=== PATIENT | female | born 1965 | race American Indian/Alaskan Native ===

== ENCOUNTER 2017-08-23 10:18 | Inpatient (IN) | payer MEDICARE ==
[2017-08-23] MEDS ORDERED: NITRO-BID 2% TP ONE (11:32)
[2017-08-23] MEDS ORDERED: LASIX IV ONE (11:32)
[2017-08-23] MEDS ORDERED: VALIUM IV ONE (11:33)
--- NOTE | 2017-08-23 11:35 | Emergency Department Report ---
ED Shortness of Breath HPI - General Chief Complaint: Dyspnea/Respdistress Stated Complaint: SOB Time Seen by Provider: 08/23/17 11:26 Source: EMS, old records reviewed Mode of arrival: Stretcher Limitations: Physical Limitation - History of Present Illness Initial Comments: 52-year-old female with a past medical history bilateral AKA, end-stage renal disease on dialysis, hypertension, and other medical conditions presents to the hospital complains of needing dialysis. Patient is due for dialysis today to be compliant with a Friday, , and Friday dialysis. Patient called the clinic and they are closed due to inclement weather and therefore patient came here. Room saturation 88% and improved to 100% on liters nasal cannula. Patient denies pain but complains of feeling anxious. Tank Car Inspector: Dr. Agustin Previous medical records were reviewed and patient admitted here 07/28-08/04 and for hypoxemia secondary to volume overload and pneumonia. - Related Data Home Medications Medication Instructions Recorded Confirmed Last Taken ISOSORBIDE MONOnitrate [Imdur ER] 30 mg PO DAILY 07/28/17 07/28/17 Unknown Losartan [Cozaar] 50 mg PO QDAY 07/28/17 07/28/17 Unknown Previous Rx's Medication Instructions Recorded Last Taken Type ALBUTEROL NEB's [Proventil 0.083% 2.5 mg IH Q3HRT PRN #1 nebu 08/04/17 Unknown Rx NEBS] Aspirin [Aspirin BABY CHEW TAB] 81 mg PO QDAY #30 tab.chew 08/04/17 Unknown Rx AtorvaSTATin [Lipitor] 40 mg PO QHS #30 tablet 08/04/17 Unknown Rx ISOSORBIDE MONOnitrate [Imdur ER] 60 mg PO QDAY #30 tablet 08/04/17 Unknown Rx Levofloxacin [Levaquin TAB] 500 mg PO Q48H #7 tablet 08/04/17 Unknown Rx Losartan [Cozaar] 100 mg PO QDAY #30 tablet 08/04/17 Unknown Rx Magnesium Hydroxide [Milk of 30 ml PO Q4H PRN oral.liqd 08/04/17 Unknown Rx Magnesia] Metoprolol Tartrate 25 mg PO BID #60 tablet 08/04/17 Unknown Rx Pantoprazole [Protonix TAB] 20 mg PO QDAY #30 tablet. 08/04/17 Unknown Rx Pregabalin [Lyrica] 75 mg PO QDAY #30 capsule 08/04/17 Unknown Rx Sevelamer Carbonate [Renvela] 800 mg PO TIDWM #30 tablet 08/04/17 Unknown Rx Sucralfate 1 gm PO BID #60 tablet 08/04/17 Unknown Rx amLODIPine [Norvasc] 10 mg PO QDAY #30 tablet 08/04/17 Unknown Rx oxyCODONE /ACETAMINOPHEN [Percocet 1 tab PO Q6H PRN #60 tablet 08/04/17 Unknown Rx 5/325 mg] Allergies Allergy/AdvReac Type Severity Reaction Status Date / Time azithromycin [From Zithromax] Allergy Rash Verified 07/28/17 07:11 sulfamethoxazole Allergy Unknown Verified 07/28/17 04:12 [From Bactrim] trimethoprim [From Bactrim] Allergy Unknown Verified 07/28/17 04:12 ED Review of Systems ROS: Stated complaint: SOB Other details as noted in HPI Comment: All other systems reviewed and negative Other: Constitutional: No fevers chills Eyes: No eye pain visual changes ENT: No ear pain or throat pain Neck: Denies pain Respiratory: As per HPI Cardiovascular: Denies chest pain GI: Denies abdominal pain, nausea, vomiting, diarrhea : Denies dysuria Musculoskeletal: Denies back pain Skin: Denies rash, lesions, erythema Neurologic: Denies headache, numbness, weakness ED Past Medical Hx - Past Medical History Hx Hypertension: Yes Hx Heart Attack/AMI: Yes (2009, 2013) Hx Congestive Heart Failure: Yes Hx Diabetes: Yes Hx Deep Vein Thrombosis: No Hx Pulmonary Embolism: No Hx Renal Disease: Yes (, , Fri) Hx Asthma: No Hx COPD: No Hx Tuberculosis: No Hx HIV: No - Surgical History Hx Coronary Stent: No Hx Pacemaker: No Hx Internal Defibrillator: No Additional Surgical History: Tubal ligation. R. Chest permacath. Bilateral below the knee amputee 1999 - Social History Smoking Status: Never Smoker - Medications Home Medications: Home Medications Medication Instructions Recorded Confirmed Last Taken Type ISOSORBIDE MONOnitrate [Imdur ER] 30 mg PO DAILY 07/28/17 07/28/17 Unknown History Losartan [Cozaar] 50 mg PO QDAY 07/28/17 07/28/17 Unknown History ALBUTEROL NEB's [Proventil 0.083% 2.5 mg IH Q3HRT PRN #1 nebu 08/04/17 Unknown Rx NEBS] Aspirin [Aspirin BABY CHEW TAB] 81 mg PO QDAY #30 tab.chew 08/04/17 Unknown Rx AtorvaSTATin [Lipitor] 40 mg PO QHS #30 tablet 08/04/17 Unknown Rx ISOSORBIDE MONOnitrate [Imdur ER] 60 mg PO QDAY #30 tablet 08/04/17 Unknown Rx Levofloxacin [Levaquin TAB] 500 mg PO Q48H #7 tablet 08/04/17 Unknown Rx Losartan [Cozaar] 100 mg PO QDAY #30 tablet 08/04/17 Unknown Rx Magnesium Hydroxide [Milk of 30 ml PO Q4H PRN oral.liqd 08/04/17 Unknown Rx Magnesia] Metoprolol Tartrate 25 mg PO BID #60 tablet 08/04/17 Unknown Rx Pantoprazole [Protonix TAB] 20 mg PO QDAY #30 tablet.dr 08/04/17 Unknown Rx Pregabalin [Lyrica] 75 mg PO QDAY #30 capsule 08/04/17 Unknown Rx Sevelamer Carbonate [Renvela] 800 mg PO TIDWM #30 tablet 08/04/17 Unknown Rx Sucralfate 1 gm PO BID #60 tablet 08/04/17 Unknown Rx amLODIPine [Norvasc] 10 mg PO QDAY #30 tablet 08/04/17 Unknown Rx oxyCODONE /ACETAMINOPHEN [Percocet 1 tab PO Q6H PRN #60 tablet 08/04/17 Unknown Rx 5/325 mg] ED Physical Exam - General Limitations: Physical Limitation - Other Other exam information: General: No limitations, patient is alert in no acute distress Head exam: Atraumatic, normocephalic Eyes exam: Normal appearance ENT: Moist mucous membrane, normal oropharynx Neck exam: Normal inspection Respiratory exam: Bilateral rales, tachypnea, accessory muscle use Cardiovascular: Normal rate and rhythm, normal heart sounds Abdomen: Soft, nondistended, and nontender, with normal bowel sounds, no rebound, or guarding Extremity: Bilateral AKA Back: Normal Inspection, full range of motion, no tenderness Neurologic: Alert, oriented x3, cranial nerves intact, no motor or sensory deficit Psychiatric: normal affect, normal mood Skin: Warm, dry, intact ED Course Vital Signs 08/23/17 10:55 Temperature 98.6 F Pulse Rate 106 H Respiratory 14 Rate Blood Pressure 194/101 Blood Pressure 194/101 [Right] O2 Sat by Pulse 100 Oximetry - Reevaluation(s) Reevaluation #1: 08/23/17 12:07 nitro paste, lasix, valium ordered - Consultations Consultation #1: 08/23/17 11:39 Dr Ramirez development lead paged 08/23/17 11:[address] to hospital, will arrange dialysis ED Medical Decision Making - Lab Data Result diagrams: 08/23/17 11:22 08/23/17 11:22 Lab Results 08/23/17 08/23/17 Range/Units 11:22 11:22 WBC 10.5 (4.5-11.0) K/mm3 RBC 3.04 L (3.65-5.03) M/mm3 Hgb 9.0 L (10.1-14.3) gm/dl Hct 28.4 L (30.3-42.9) % MCV 93 (79-97) fl MCH 30 (28-32) pg MCHC 32 (30-34) % RDW 20.9 H (13.2-15.2) % Plt Count 179 (140-440) K/mm3 Lymph % (Auto) 16.6 (13.4-35.0) % [place] % (Auto) 7.1 (0.0-7.3) % Eos % (Auto) 6.2 H (0.0-4.3) % Baso % (Auto) 0.5 (0.0-1.8) % Lymph # 1.7 (1.2-5.4) K/mm3 [place] # 0.8 (0.0-0.8) K/mm3 Eos # 0.7 H (0.0-0.4) K/mm3 Baso # 0.1 (0.0-0.1) K/mm3 Add Manual Diff Complete Seg Neutrophils % 69.6 (40.0-70.0) % Seg Neutrophils # 7.3 (1.8-7.7) K/mm3 Sodium 140 (137-145) mmol/L Potassium 4.3 (3.6-5.0) mmol/L Chloride 99.7 (98-107) mmol/L Carbon Dioxide 21 L (22-30) mmol/L Anion Gap 24 mmol/L BUN 66 H (7-17) mg/dL Creatinine 8.1 H (0.7-1.2) mg/dL Estimated GFR 6 ml/min BUN/Creatinine Ratio 8 % Glucose 114 H (65-100) mg/dL Calcium 8.6 (8.4-10.2) mg/dL Total Bilirubin 0.40 (0.1-1.2) mg/dL AST 28 (5-40) units/L ALT 22 (7-56) units/L Alkaline Phosphatase 364 H (35-129) units/L Total Protein 8.5 H (6.3-8.2) g/dL Albumin 3.3 L (3.9-5) g/dL Albumin/Globulin Ratio 0.6 % - EKG Data -: EKG Interpreted by Me EKG shows normal: sinus rhythm, axis (59), QRS complexes (88), ST-T waves (lat t wave inv) Rate: tachycardia (106) - EKG Data When compared to previous EKG there are: no significant change (compared to ) - Radiology Data Radiology results: image reviewed (read by Me: pulm edema) - Medical Decision Making Plan to admit patient to the hospital for stat dialysis given pulmonary edema and volume over. Nephrology consultation arranged at dialysis. - Differential Diagnosis pneumonia, CHF, volume overload, hyperkalemia Critical Care Time: No Critical care attestation.: If time is entered above; I have spent that time in minutes in the direct care of this critically ill patient, excluding procedure time. ED Disposition Clinical Impression: ESRD needing dialysis, Pulmonary edema, Hypertension, Anemia Disposition: OP ADMIT IP TO THIS HOSP Is pt being admited?: Yes Condition: Stable Time of Disposition: 12:06 (Dr Montes/hosp)
[2017-08-23 11:52] LABS: Red Blood Count 3.04 M/mm3 (3.65-5.03); White Blood Count 10.5 K/mm3 (4.5-11.0)
[2017-08-23 11:53] LABS: Basophils % (Auto) 0.5 % (0.0-1.8); Eosinophils % (Auto) 6.2 % (0.0-4.3); Hematocrit 28.4 % (30.3-42.9); Mean Corpuscular HGB Conc 32 % (30-34); Mean Corpuscular Hemoglobin 30 pg (28-32); Mean Corpuscular Volume 93 fl (79-97); Platelet Count 179 K/mm3 (140-440); Red Cell Distribution Width 20.9 % (13.2-15.2)
[2017-08-23 11:54] LABS: Diff Status Complete
[2017-08-23 11:58] LABS: Albumin 3.3 g/dL (3.9-5); Albumin/Globulin Ratio 0.6 %; Bilirubin,Total 0.4 mg/dL (0.1-1.2); Calcium 8.6 mg/dL (8.4-10.2); Chloride 99.7 mmol/L (98-107); Potassium 4.3 mmol/L (3.6-5.0); Total Protein 8.5 g/dL (6.3-8.2)
--- NOTE | 2017-08-23 12:00 | Consultation ---
History of Present Illness - Reason for Consult Consult date: 08/23/17 end stage renal disease, other (volume overload) - History of Present Illness The patient is a 52 year old AAF with medical history significant for Hypertension, Type 2 DM, Bilateral BKA, CHF, CAD s/p stent, Anemia and ESRD on hemodialysis(TTS) presented to the hospital with shortness of breath that started abruptly this morning. Patient couldn't get hemodialysis today since the hemodialysis unit was closed today. She was last dialyzed 2 days ago but didn't remove any fluid due to low BP. Her intial BP was 194/101. Her primary Rn Renal is . CXR suggestive of Pulmonary edema. Her hemodialysis access is left arm AVG. Past History Past Medical History: anemia, diabetes, dialysis, ESRD, heart failure, hypertension, hyperlipidemia Medications and Allergies Allergies Allergy/AdvReac Type Severity Reaction Status Date / Time azithromycin [From Zithromax] Allergy Rash Verified 07/28/17 07:11 sulfamethoxazole Allergy Unknown Verified 07/28/17 04:12 [From Bactrim] trimethoprim [From Bactrim] Allergy Unknown Verified 07/28/17 04:12 Home Medications Medication Instructions Recorded Confirmed Last Taken Type ISOSORBIDE MONOnitrate [Imdur ER] 30 mg PO DAILY 07/28/17 07/28/17 Unknown History Losartan [Cozaar] 50 mg PO QDAY 07/28/17 07/28/17 Unknown History ALBUTEROL NEB's [Proventil 0.083% 2.5 mg IH Q3HRT PRN #1 nebu 08/04/17 Unknown Rx NEBS] Aspirin [Aspirin BABY CHEW TAB] 81 mg PO QDAY #30 tab.chew 08/04/17 Unknown Rx AtorvaSTATin [Lipitor] 40 mg PO QHS #30 tablet 08/04/17 Unknown Rx ISOSORBIDE MONOnitrate [Imdur ER] 60 mg PO QDAY #30 tablet 08/04/17 Unknown Rx Levofloxacin [Levaquin TAB] 500 mg PO Q48H #7 tablet 08/04/17 Unknown Rx Losartan [Cozaar] 100 mg PO QDAY #30 tablet 08/04/17 Unknown Rx Magnesium Hydroxide [Milk of 30 ml PO Q4H PRN oral.liqd 08/04/17 Unknown Rx Magnesia] Metoprolol Tartrate 25 mg PO BID #60 tablet 08/04/17 Unknown Rx Pantoprazole [Protonix TAB] 20 mg PO QDAY #30 tablet. 08/04/17 Unknown Rx Pregabalin [Lyrica] 75 mg PO QDAY #30 capsule 08/04/17 Unknown Rx Sevelamer Carbonate [Renvela] 800 mg PO TIDWM #30 tablet 08/04/17 Unknown Rx Sucralfate 1 gm PO BID #60 tablet 08/04/17 Unknown Rx amLODIPine [Norvasc] 10 mg PO QDAY #30 tablet 08/04/17 Unknown Rx oxyCODONE /ACETAMINOPHEN [Percocet 1 tab PO Q6H PRN #60 tablet 08/04/17 Unknown Rx 5/325 mg] Review of Systems Constitutional: no weight loss, no weight gain, no fever, no chills, no anorexia Ears, nose, mouth and throat: no epistaxis Breasts: deferred Cardiovascular: orthopnea, shortness of breath, dyspnea on exertion, high blood pressure, no chest pain, no edema, no syncope, no lightheadedness, no leg edema Respiratory: cough, shortness of breath, dyspnea on exertion, no cough with sputum, no hemoptysis Gastrointestinal: no abdominal pain, no nausea, no vomiting, no diarrhea, no hematemesis, no melena Genitourinary Female: no hematuria Rectal: no bleeding Musculoskeletal: no redness of joints, no hot joints Integumentary: no rash, no jaundice Neurological: no paralysis, no syncope, no vertigo, no aphasia, no change in speech, no change in mentation, no confusion, no memory loss Psychiatric: no memory loss Endocrine: no weight change Hematologic/Lymphatic: no easy bleeding Exam - Vital Signs Vital signs: Vital Signs Temp Pulse Resp BP Pulse Ox 98.6 F 106 H 14 194/101 100 08/23/17 10:55 08/23/17 10:55 08/23/17 10:55 08/23/17 10:55 08/23/17 10:55 - General Appearance General appearance: well-developed, appears stated age, other (no obvious distress) EENT: ATNC, PERRL, hearing intact Neck: Present: neck supple, trachea midline Respiratory: Rales Heart: regular, S1S2, no murmurs Gastrointestinal: Present: normoactive bowel sounds. Absent: tenderness, distended Integumentary: no rash Neurologic: no focal deficit, no asterixis, alert and oriented x3 Musculoskeletal: Present: other (no edema, bilateral BKA) Psychiatric: mood/affect appropriate, cooperative Results - Lab Results 08/23/17 11:22 08/23/17 11:22 Most recent lab results Calcium 8.6 mg/dL (8.4-10.2) 08/23/17 11:22 Assessment and Plan 1. Volume overload: Hemodialysis today. 2. ESRD: Continue HD three times a week. 3. Anemia: Epogen as needed. 4. Uncontrolled HTN: UF with hemodialysis today. Monitor BP. 5. H/o CAD.
[2017-08-23] MEDS ORDERED: NACL 0.9% 100 ML IV PRN (12:10)
--- NOTE | 2017-08-23 13:24 | XRay Report ---
AP CHEST :08/23/17 CLINICAL: Difficulty breathing. COMPARISON:07/28/17 FINDINGS: Cardiomegaly and central vascular congestion with indistinct as are the pulmonary vessels. Increased bilateral multilobar reticular interstitial opacities compared to the prior exam. Increased bibasal both confluent and patchy lung opacities. A right Vas-Cath has been removed. No tubes or lines. IMPRESSION: CHF with multilobar interstitial pulmonary edema and bibasal dependent alveolar pulmonary edema.
[2017-08-23] MEDS ORDERED: APRESOLINE IV ONE (17:42)
[2017-08-23] MEDS: MORPHINE IV PRN (18:41)
--- NOTE | 2017-08-23 19:23 | History and Physical Report ---
History of Present Illness Date of examination: 08/23/17 Date of admission: 08/23/17 14:51 Chief complaint: CC Increasing SOB for 3 days History of present illness: History of Present Illness: 52-year-old female with a past medical history bilateral AKA, end-stage renal disease on dialysis, hypertension, and other medical conditions presents to the hospital complains of needing dialysis. Patient is due for dialysis today to be compliant with a Friday, , and Friday dialysis. Patient called the clinic and they are closed due to inclement weather and therefore patient came here. Room saturation 88% and improved to 100% on liters nasal cannula. Patient denies pain but complains of feeling anxious. Shipyard Helper: Dr. Agustin Previous medical records were reviewed and patient admitted here 07/28-08/04 and for hypoxemia secondary to volume overload and pneumonia. Past Medical History Hx Hypertension: Yes Hx Heart Attack/AMI: Yes (2009, 2013) Hx Congestive Heart Failure: Yes Hx Diabetes: Yes Hx Renal Disease: Yes (, , Fri) PAD - Surgical History Hx Coronary Stent: No Hx Pacemaker: No Hx Internal Defibrillator: No Additional Surgical History: Tubal ligation. R. Chest permacath. Bilateral below the knee amputee 1999 - Social History Smoking Status: Never Smoker Fam Hx Htn - Medications Home Medications: Home Medications Medication Instructions Recorded Confirmed Last Taken Type ISOSORBIDE MONOnitrate [Imdur ER] 30 mg PO DAILY 07/28/17 07/28/17 Unknown History Losartan [Cozaar] 50 mg PO QDAY 07/28/17 07/28/17 Unknown History ALBUTEROL NEB's [Proventil 0.083% 2.5 mg IH Q3HRT PRN #1 nebu 08/04/17 Unknown Rx NEBS] Aspirin [Aspirin BABY CHEW TAB] 81 mg PO QDAY #30 tab.chew 08/04/17 Unknown Rx AtorvaSTATin [Lipitor] 40 mg PO QHS #30 tablet 08/04/17 Unknown Rx ISOSORBIDE MONOnitrate [Imdur ER] 60 mg PO QDAY #30 tablet 08/04/17 Unknown Rx Levofloxacin [Levaquin TAB] 500 mg PO Q48H #7 tablet 08/04/17 Unknown Rx Losartan [Cozaar] 100 mg PO QDAY #30 tablet 08/04/17 Unknown Rx Magnesium Hydroxide [Milk of 30 ml PO Q4H PRN oral.liqd 08/04/17 Unknown Rx Magnesia] Metoprolol Tartrate 25 mg PO BID #60 tablet 08/04/17 Unknown Rx Pantoprazole [Protonix TAB] 20 mg PO QDAY #30 tablet. 08/04/17 Unknown Rx Pregabalin [Lyrica] 75 mg PO QDAY #30 capsule 08/04/17 Unknown Rx Sevelamer Carbonate [Renvela] 800 mg PO TIDWM #30 tablet 08/04/17 Unknown Rx Sucralfate 1 gm PO BID #60 tablet 08/04/17 Unknown Rx amLODIPine [Norvasc] 10 mg PO QDAY #30 tablet 08/04/17 Unknown Rx oxyCODONE /ACETAMINOPHEN [Percocet 1 tab PO Q6H PRN #60 tablet 08/04/17 Unknown Rx 5/325 mg] Review of Systems Stated complaint: SOB Other details as noted in HPI Comment: All other systems reviewed and negative Other: Constitutional: No fevers chills Eyes: No eye pain visual changes ENT: No ear pain or throat pain Neck: Denies pain Respiratory: As per HPI Cardiovascular: Denies chest pain GI: Denies abdominal pain, nausea, vomiting, diarrhea : Denies dysuria Musculoskeletal: Denies back pain Skin: Denies rash, lesions, erythema Neurologic: Denies headache, numbness, weakness Past History Past Medical History: anemia, diabetes, dialysis, ESRD, heart failure, hypertension, hyperlipidemia Medications and Allergies Allergies Allergy/AdvReac Type Severity Reaction Status Date / Time azithromycin [From Zithromax] Allergy Rash Verified 07/28/17 07:11 sulfamethoxazole Allergy Unknown Verified 07/28/17 04:12 [From Bactrim] trimethoprim [From Bactrim] Allergy Unknown Verified 07/28/17 04:12 Home Medications Medication Instructions Recorded Confirmed Last Taken Type ISOSORBIDE MONOnitrate [Imdur ER] 30 mg PO DAILY 07/28/17 07/28/17 Unknown History Losartan [Cozaar] 50 mg PO QDAY 07/28/17 07/28/17 Unknown History ALBUTEROL NEB's [Proventil 0.083% 2.5 mg IH Q3HRT PRN #1 nebu 08/04/17 Unknown Rx NEBS] Aspirin [Aspirin BABY CHEW TAB] 81 mg PO QDAY #30 tab.chew 08/04/17 Unknown Rx AtorvaSTATin [Lipitor] 40 mg PO QHS #30 tablet 08/04/17 Unknown Rx ISOSORBIDE MONOnitrate [Imdur ER] 60 mg PO QDAY #30 tablet 08/04/17 Unknown Rx Levofloxacin [Levaquin TAB] 500 mg PO Q48H #7 tablet 08/04/17 Unknown Rx Losartan [Cozaar] 100 mg PO QDAY #30 tablet 08/04/17 Unknown Rx Magnesium Hydroxide [Milk of 30 ml PO Q4H PRN oral.liqd 08/04/17 Unknown Rx Magnesia] Metoprolol Tartrate 25 mg PO BID #60 tablet 08/04/17 Unknown Rx Pantoprazole [Protonix TAB] 20 mg PO QDAY #30 tablet.dr 08/04/17 Unknown Rx Pregabalin [Lyrica] 75 mg PO QDAY #30 capsule 08/04/17 Unknown Rx Sevelamer Carbonate [Renvela] 800 mg PO TIDWM #30 tablet 08/04/17 Unknown Rx Sucralfate 1 gm PO BID #60 tablet 08/04/17 Unknown Rx amLODIPine [Norvasc] 10 mg PO QDAY #30 tablet 08/04/17 Unknown Rx oxyCODONE /ACETAMINOPHEN [Percocet 1 tab PO Q6H PRN #60 tablet 08/04/17 Unknown Rx 5/325 mg] Active Meds: Active Medications Sodium Chloride (Nacl 0.9%) 100 mls @ 999 mls/hr IV RAIN PRN PRN Reason: Hypotension Morphine Sulfate (Morphine) 2 mg IV Q3H PRN PRN Reason: Pain, Moderate (4-6) Last Admin: 08/23/17 18:41 Dose: 2 mg Exam - Constitutional Vitals: Temp Pulse Resp BP Pulse Ox 99.1 F 115 H 18 190/92 100 08/23/17 18:29 08/23/17 18:13 08/23/17 18:29 08/23/17 18:13 08/23/17 18:29 General appearance: Present: no acute distress, well-nourished - EENT Eyes: Present: PERRL ENT: hearing intact, clear oral mucosa - Neck Neck: Present: supple, normal ROM - Respiratory Respiratory effort: normal Respiratory: bilateral: CTA - Cardiovascular Heart rate: 76 Rhythm: regular Heart Sounds: Present: S1 & S2. Absent: rub, click - Extremities Extremities: pulses symmetrical, No edema, abnormal (Bilateral AKA) Peripheral Pulses: within normal limits - Abdominal General gastrointestinal: Present: soft, non-tender, non-distended, normal bowel sounds Female genitourinary: Present: normal - Integumentary Integumentary: Present: clear, warm, dry - Musculoskeletal Musculoskeletal: gait normal, strength equal bilaterally - Psychiatric Psychiatric: appropriate mood/affect, intact judgment & insight - Neurologic Neurologic: CNII-XII intact, moves all extremities Results - Labs CBC & Chem 7: 08/23/17 11:22 08/23/17 11:22 Labs: Laboratory Last Values WBC 10.5 K/mm3 (4.5-11.0) 08/23/17 11:22 RBC 3.04 M/mm3 (3.65-5.03) L 08/23/17 11:22 Hgb 9.0 gm/dl (10.1-14.3) L 08/23/17 11:22 Hct 28.4 % (30.3-42.9) L 08/23/17 11:22 MCV 93 fl (79-97) 08/23/17 11:22 MCH 30 pg (28-32) 08/23/17 11:22 MCHC 32 % (30-34) 08/23/17 11:22 RDW 20.9 % (13.2-15.2) H 08/23/17 11:22 Plt Count 179 K/mm3 (140-440) 08/23/17 11:22 Lymph % (Auto) 16.6 % (13.4-35.0) 08/23/17 11:22 [place] % (Auto) 7.1 % (0.0-7.3) 08/23/17 11:22 Eos % (Auto) 6.2 % (0.0-4.3) H 08/23/17 11:22 Baso % (Auto) 0.5 % (0.0-1.8) 08/23/17 11:22 Lymph # 1.7 K/mm3 (1.2-5.4) 08/23/17 11:22 [place] # 0.8 K/mm3 (0.0-0.8) 08/23/17 11:22 Eos # 0.7 K/mm3 (0.0-0.4) H 08/23/17 11:22 Baso # 0.1 K/mm3 (0.0-0.1) 08/23/17 11:22 Add Manual Diff Complete 08/23/17 11:22 Seg Neutrophils % 69.6 % (40.0-70.0) 08/23/17 11:22 Seg Neutrophils # 7.3 K/mm3 (1.8-7.7) 08/23/17 11:22 Sodium 140 mmol/L (137-145) 08/23/17 11:22 Potassium 4.3 mmol/L (3.6-5.0) 08/23/17 11:22 Chloride 99.7 mmol/L (98-107) 08/23/17 11:22 Carbon Dioxide 21 mmol/L (22-30) L 08/23/17 11:22 Anion Gap 24 mmol/L 08/23/17 11:22 BUN 66 mg/dL (7-17) H 08/23/17 11:22 Creatinine 8.1 mg/dL (0.7-1.2) H 08/23/17 11:22 Estimated GFR 6 ml/min 08/23/17 11:22 BUN/Creatinine Ratio 8 % 08/23/17 11:22 Glucose 114 mg/dL (65-100) H 08/23/17 11:22 POC Glucose 136 (70-105) H 08/23/17 17:18 Calcium 8.6 mg/dL (8.4-10.2) 08/23/17 11:22 Total Bilirubin 0.40 mg/dL (0.1-1.2) 08/23/17 11:22 AST 28 units/L (5-40) 08/23/17 11:22 ALT 22 units/L (7-56) 08/23/17 11:22 Alkaline Phosphatase 364 units/L (35-129) H 08/23/17 11:22 Total Protein 8.5 g/dL (6.3-8.2) H 08/23/17 11:22 Albumin 3.3 g/dL (3.9-5) L 08/23/17 11:22 Albumin/Globulin Ratio 0.6 % 08/23/17 11:22 Short CBC 08/23/17 Range/Units 11:22 WBC 10.5 (4.5-11.0) K/mm3 Hgb 9.0 L (10.1-14.3) gm/dl Hct 28.4 L (30.3-42.9) % Plt Count 179 (140-440) K/mm3 BMP 08/23/17 11:22 Sodium 140 Potassium 4.3 Chloride 99.7 Carbon Dioxide 21 L BUN 66 H Creatinine 8.1 H Glucose 114 H Calcium 8.6 Liver Function 08/23/17 Range/Units 11:22 Total Bilirubin 0.40 (0.1-1.2) mg/dL AST 28 (5-40) units/L ALT 22 (7-56) units/L Alkaline Phosphatase 364 H (35-129) units/L Albumin 3.3 L (3.9-5) g/dL - Imaging and Cardiology EKG: report reviewed Chest x-ray: report reviewed (CHF with pulm edema) Assessment and Plan Advance Directives: Yes (Full code) VTE prophylaxis?: Chemical Plan of care discussed with patient/family: Yes - Patient Problems (1) Acute exacerbation of CHF (congestive heart failure) Current Visit: Yes Status: Acute Qualifiers: Congestive heart failure type: diastolic Qualified Code(s): I50.33 - Acute on chronic diastolic (congestive) heart failure Plan to address problem: Sec to volume overload. Needs emergent HD for Ultrafiltration and volume removal. (2) ESRD needing dialysis Current Visit: Yes Status: Chronic Plan to address problem: Nephrology consulted (3) Hypertension Current Visit: Yes Status: Chronic Qualifiers: Hypertension type: essential hypertension Qualified Code(s): I10 - Essential (primary) hypertension Plan to address problem: Hydralazine 10mg q3 prn and adjust antihypertensives (4) Hypertensive emergency Current Visit: No Status: Acute Plan to address problem: IV Hydralazine 10mg q 3 prn (5) Peripheral neuropathy Current Visit: Yes Status: Chronic Qualifiers: Peripheral neuropathy type: polyneuropathy, unspecified Qualified Code(s): G62.9 - Polyneuropathy, unspecified Plan to address problem: Cont Lyrica (6) GERD without esophagitis Current Visit: Yes Status: Chronic Plan to address problem: Cont pPI's (7) DVT prophylaxis Current Visit: Yes Status: Acute Plan to address problem: On Heparin
[2017-08-23] MEDS ORDERED: MILK OF MAGNESIA PO PRN (19:29)
[2017-08-23] MEDS ORDERED: PROVENTIL IH PRN (19:29)
[2017-08-23] MEDS ORDERED: NORVASC PO SCH (20:00)
[2017-08-23] MEDS ORDERED: IMDUR PO SCH (20:00)
[2017-08-23] MEDS: COZAAR PO SCH (20:12)
[2017-08-23] MEDS: BABY ASPIRIN PO SCH (20:13)
[2017-08-23] MEDS: IMDUR PO SCH (20:13)
[2017-08-23] MEDS: CARAFATE PO SCH (22:21)
[2017-08-23] MEDS: LOPRESSOR PO SCH (22:22)
[2017-08-23] MEDS: NORVASC PO SCH (22:24)
[2017-08-23] MEDS: HEPARIN SUB-Q SCH (22:25)
[2017-08-23] MEDS: DILAUDID IV PRN (22:32)
[2017-08-24] MEDS ORDERED: NOVOLOG SUB-Q ONE (00:46)
[2017-08-24] MEDS ORDERED: NOVOLOG SUB-Q SCH ×3 (07:30→11:30)
[2017-08-24] MEDS: DILAUDID IV PRN ×2 (08:33→20:23)
[2017-08-24] MEDS: NOVOLOG SUB-Q SCH ×4 (08:55→23:28)
[2017-08-24] MEDS: ZOFRAN IV PRN ×2 (09:16→20:22)
[2017-08-24] MEDS ORDERED: BENADRYL IV PRN (09:17)
[2017-08-24] MEDS: COZAAR PO SCH (11:20)
[2017-08-24] MEDS: RENVELA PO SCH ×3 (11:21→17:05)
[2017-08-24] MEDS: LYRICA PO SCH (11:21)
[2017-08-24] MEDS: NORVASC PO SCH (11:21)
[2017-08-24] MEDS: IMDUR PO SCH (11:22)
[2017-08-24] MEDS: BABY ASPIRIN PO SCH (11:22)
[2017-08-24] MEDS: HEPARIN SUB-Q SCH ×2 (11:22→22:21)
[2017-08-24] MEDS: CARAFATE PO SCH ×2 (11:22→22:23)
[2017-08-24] MEDS: LOPRESSOR PO SCH ×2 (11:26→22:23)
--- NOTE | 2017-08-24 12:30 | Progress Note ---
Assessment and Plan 1. Volume overload: Improved after hemodialysis yesterday. 2. ESRD: Continue HD three times a week. 3. Anemia: Epogen as needed. 4. Uncontrolled HTN: BP is better now. Monitor BP. 5. H/o CAD. Subjective Date of service: 08/24/17 Interval history: Patient is feeling better. Objective - Vital Signs Vital signs: Vital Signs - 12hr 08/24/17 08/24/17 08/24/17 02:43 08:17 08:30 Temperature 98.2 F Pulse Rate 91 H Respiratory 20 18 Rate Blood Pressure 135/67 O2 Sat by Pulse 90 95 96 Oximetry 08/24/17 08/24/17 08/24/17 11:20 11:21 11:22 Temperature Pulse Rate 91 H 91 H 91 H Respiratory Rate Blood Pressure 135/67 135/67 135/67 O2 Sat by Pulse Oximetry - General Appearance General appearance: well-developed, appears stated age, other (no distress) EENT: ATNC, PERRL, hearing intact Neck: supple Respiratory: Present: Rales (bibasal) Cardiology: regular, S1S2, no murmurs Gastrointestinal: normoactive bowel sounds, no tenderness, no distended Integumentary: no rash, warm and dry Neurologic: no focal deficit, no asterixis, alert and oriented x3 Musculoskeletal: other (no edema, left arm AVG, bilateral BKA) Psychiatric: mood/affect appropriate, cooperative - Lab 08/23/17 11:22 08/23/17 11:22 Most recent lab results Calcium 8.6 mg/dL (8.4-10.2) 08/23/17 11:22
--- NOTE | 2017-08-24 15:58 | Progress Note ---
Assessment and Plan - Patient Problems (1) Acute exacerbation of CHF (congestive heart failure) Current Visit: Yes Status: Acute Qualifiers: Congestive heart failure type: diastolic Qualified Code(s): I50.33 - Acute on chronic diastolic (congestive) heart failure Plan to address problem: Seciondary to volume overload. On HD. (2) ESRD needing dialysis on T, TH and Sat Current Visit: Yes Status: Chronic Plan to address problem: Nephrology consulted (3) Hypertension: controlled Current Visit: Yes Status: Chronic Qualifiers: Hypertension type: essential hypertension Qualified Code(s): I10 - Essential (primary) hypertension Plan to address problem: Hydralazine 10mg q3 prn and adjust antihypertensives (4) Hypertensive emergency: improved Current Visit: No Status: Acute Plan to address problem: IV Hydralazine 10mg q 3 prn (5)Diabetic Peripheral neuropathy Current Visit: Yes Status: Chronic Qualifiers: Peripheral neuropathy type: polyneuropathy, unspecified Qualified Code(s): G62.9 - Polyneuropathy, unspecified Plan to address problem: Cont Lyrica (6) GERD without esophagitis Current Visit: Yes Status: Chronic Plan to address problem: Cont pPI's (8) DVT prophylaxis Current Visit: Yes Status: Acute Plan to address problem: On Heparin (9) Diabetess mellitus Type 2 on SSI and Consistend Carbohydrate diet Subjective Date of service: 08/24/17 Principal diagnosis: acute on chronic systolic heart failure Interval history: Denies any chest pain. No shortness of breath Objective - Constitutional Vitals: Vital Signs - 12hr 08/24/17 08/24/17 08/24/17 08:17 08:30 11:20 Temperature 98.2 F Pulse Rate 91 H 91 H Respiratory 18 Rate Blood Pressure 135/67 135/67 O2 Sat by Pulse 95 96 Oximetry 08/24/17 08/24/17 11:21 11:22 Temperature Pulse Rate 91 H 91 H Respiratory Rate Blood Pressure 135/67 135/67 O2 Sat by Pulse Oximetry General appearance: Present: no acute distress, well-nourished - EENT Eyes: PERRL, EOM intact - Neck Neck: supple, normal ROM - Respiratory Respiratory effort: normal Respiratory: bilateral: diminished - Cardiovascular Rhythm: regular Heart Sounds: Present: S1 & S2. Absent: gallop, rub Extremities: pulses intact, No edema, normal color, Full ROM - Gastrointestinal General gastrointestinal: Present: soft, non-tender, non-distended, normal bowel sounds - Integumentary Integumentary: clear, warm, dry - Musculoskeletal Musculoskeletal: 1, strength equal bilaterally - Neurologic Neurologic: moves all extremities - Psychiatric Psychiatric: memory intact, appropriate mood/affect, intact judgment & insight - Labs CBC & Chem 7: 08/23/17 11:22 08/23/17 11:22 Labs: Abnormal lab results 08/23/17 08/23/17 08/24/17 Range/Units 17:18 21:14 06:23 POC Glucose 136 H 347 H 419 H (70-105) 08/24/17 Range/Units 12:17 POC Glucose 224 H (70-105)
[2017-08-24] MEDS: LEVEMIR SUB-Q SCH (22:46)
[2017-08-25 06:33] LABS: Basophils % (Auto) 1.2 % (0.0-1.8); Eosinophils % (Auto) 6.9 % (0.0-4.3); Hematocrit 29.3 % (30.3-42.9); Hemoglobin 9.2 gm/dl (10.1-14.3); Mean Corpuscular HGB Conc 31 % (30-34); Mean Corpuscular Hemoglobin 29 pg (28-32); Mean Corpuscular Volume 92 fl (79-97); Platelet Count 175 K/mm3 (140-440); Red Blood Count 3.19 M/mm3 (3.65-5.03); White Blood Count 8.9 K/mm3 (4.5-11.0)
[2017-08-25 06:56] LABS: Albumin/Globulin Ratio 0.6 %; Bilirubin,Total 0.5 mg/dL (0.1-1.2); Chloride 93.1 mmol/L (98-107); Magnesium 1.9 mg/dL (1.7-2.3); Phosphorous 6.4 mg/dL (2.5-4.5); Potassium 5.3 mmol/L (3.6-5.0); Total Protein 7.8 g/dL (6.3-8.2)
[2017-08-25] MEDS: DILAUDID IV PRN ×3 (07:45→20:22)
[2017-08-25] MEDS: ZOFRAN IV PRN ×2 (07:45→16:10)
[2017-08-25] MEDS: NOVOLOG SUB-Q SCH ×4 (07:51→23:06)
[2017-08-25] MEDS: RENVELA PO SCH ×3 (07:55→17:56)
--- NOTE | 2017-08-25 09:36 | Progress Note ---
Assessment and Plan 1. Volume overload: Improved after hemodialysis. 2. ESRD: Continue HD three times a week, TTS schedule. 3. Hyperkalemia: Dose of Kayexalate today. 4. Anemia: Epogen as needed. 5. Uncontrolled HTN: BP is better now. Monitor BP. 6. H/o CAD. Subjective Date of service: 08/25/17 Principal diagnosis: acute on chronic systolic heart failure Interval history: Patient is feeling ok. Objective - Vital Signs Vital signs: Vital Signs - 12hr 08/24/17 08/24/17 08/25/17 22:00 22:23 05:04 Temperature 98.4 F Pulse Rate 94 H 85 Respiratory 18 16 Rate Blood Pressure 134/69 123/66 O2 Sat by Pulse 100 95 Oximetry 08/25/17 09:24 Temperature Pulse Rate Respiratory Rate Blood Pressure O2 Sat by Pulse 99 Oximetry - General Appearance General appearance: well-developed, appears stated age, other (no distress) EENT: ATNC, PERRL, hearing intact Neck: supple Respiratory: Present: Rales Cardiology: regular, S1S2, no murmurs Gastrointestinal: normoactive bowel sounds, no tenderness, no distended Integumentary: no rash, warm and dry Neurologic: no focal deficit, no asterixis, alert and oriented x3 Musculoskeletal: other (no edema, bilateral BKA) Psychiatric: mood/affect appropriate, cooperative - Lab 08/25/17 06:14 08/25/17 06:14 Most recent lab results Calcium 9.0 mg/dL (8.4-10.2) 08/25/17 06:14 Phosphorus 6.40 mg/dL (2.5-4.5) H 08/25/17 06:14 Magnesium 1.90 mg/dL (1.7-2.3) 08/25/17 06:14
[2017-08-25] MEDS: CARAFATE PO SCH ×2 (10:58→21:59)
[2017-08-25] MEDS: BABY ASPIRIN PO SCH (10:59)
[2017-08-25] MEDS: HEPARIN SUB-Q SCH ×2 (10:59→23:06)
[2017-08-25] MEDS: LYRICA PO SCH (10:59)
[2017-08-25] MEDS ORDERED: KIONEX PO ONE (11:00)
[2017-08-25] MEDS: COZAAR PO SCH (15:41)
[2017-08-25] MEDS: IMDUR PO SCH (15:41)
[2017-08-25] MEDS: NORVASC PO SCH (15:42)
[2017-08-25] MEDS: LOPRESSOR PO SCH ×2 (15:42→22:05)
--- NOTE | 2017-08-25 16:29 | Progress Note ---
Assessment and Plan Assessment and plan Acute exacerbation of congestive heart failure: Secondary to volume overload. Patient is on hemodialysis. On beta orly, ARB. End-stage renal dialysis on hemodialysis: Nephrology following, patient is on hemodialysis on Tuesdays, and Saturdays. Hypertensioncontrolled: On antihypertensive meds. Diabetes mellitus: Sliding scale insulin. Diabetic peripheral neuropathy: On Lyrica. Anemia: Secondary to CKD. Hyperkalemia: GERD: On PPIs. DVT prophylaxis: On heparin Subjective Date of service: 08/25/17 Principal diagnosis: acute on chronic systolic heart failure Interval history: C/o chest pain. Objective - Constitutional Vitals: Vital Signs - 12hr 08/25/17 08/25/17 08/25/17 05:04 09:22 09:24 Temperature 98.4 F 98.9 F Pulse Rate 85 84 Respiratory 16 20 Rate Blood Pressure 123/66 127/67 O2 Sat by Pulse 95 97 99 Oximetry 08/25/17 15:41 Temperature Pulse Rate 85 Respiratory Rate Blood Pressure 135/70 O2 Sat by Pulse Oximetry General appearance: Present: no acute distress, well-nourished - EENT Eyes: PERRL, EOM intact ENT: hearing intact, clear oral mucosa Ears: bilateral: normal - Neck Neck: supple, normal ROM - Respiratory Respiratory effort: normal Respiratory: bilateral: CTA - Breasts Breasts: normal - Cardiovascular Rhythm: regular Heart Sounds: Present: S1 & S2. Absent: gallop, rub Extremities: pulses intact, No edema, normal color, Full ROM - Gastrointestinal General gastrointestinal: Present: soft, non-tender, non-distended, normal bowel sounds - Genitourinary Female genitourinary: normal - Integumentary Integumentary: clear, warm, dry - Musculoskeletal Musculoskeletal: 1, strength equal bilaterally - Neurologic Neurologic: moves all extremities - Psychiatric Psychiatric: memory intact, appropriate mood/affect, intact judgment & insight - Labs CBC & Chem 7: 08/25/17 06:14 08/25/17 06:14 Labs: Abnormal lab results 08/24/17 08/24/17 08/25/17 Range/Units 17:01 22:33 06:14 RBC (3.65-5.03) M/mm3 Hgb (10.1-14.3) gm/dl Hct (30.3-42.9) % RDW (13.2-15.2) % [place] % (Auto) (0.0-7.3) % Eos % (Auto) (0.0-4.3) % Eos # (0.0-0.4) K/mm3 Sodium (137-145) mmol/L Potassium (3.6-5.0) mmol/L Chloride (98-107) mmol/L BUN (7-17) mg/dL Creatinine (0.7-1.2) mg/dL Glucose (65-100) mg/dL POC Glucose 185 H 161 H (70-105) Hemoglobin A1c 7.9 H (4-6) % Phosphorus (2.5-4.5) mg/dL Alkaline Phosphatase (35-129) units/L Albumin (3.9-5) g/dL 08/25/17 08/25/17 08/25/17 Range/Units 06:14 06:14 06:19 RBC 3.19 L (3.65-5.03) M/mm3 Hgb 9.2 L (10.1-14.3) gm/dl Hct 29.3 L (30.3-42.9) % RDW 20.0 H (13.2-15.2) % [place] % (Auto) 8.9 H (0.0-7.3) % Eos % (Auto) 6.9 H (0.0-4.3) % Eos # 0.6 H (0.0-0.4) K/mm3 Sodium 134 L (137-145) mmol/L Potassium 5.3 H D (3.6-5.0) mmol/L Chloride 93.1 L (98-107) mmol/L BUN 42 H (7-17) mg/dL Creatinine 7.0 H (0.7-1.2) mg/dL Glucose 102 H (65-100) mg/dL POC Glucose 125 H (70-105) Hemoglobin A1c (4-6) % Phosphorus 6.40 H (2.5-4.5) mg/dL Alkaline Phosphatase 300 H (35-129) units/L Albumin 3.0 L (3.9-5) g/dL
[2017-08-25] MEDS: LEVEMIR SUB-Q SCH (22:00)
[2017-08-26 06:10] LABS: Basophils % (Auto) 0.4 % (0.0-1.8); Eosinophils % (Auto) 7.3 % (0.0-4.3); Hematocrit 29.4 % (30.3-42.9); Hemoglobin 9.1 gm/dl (10.1-14.3); Mean Corpuscular HGB Conc 31 % (30-34); Mean Corpuscular Hemoglobin 28 pg (28-32); Mean Corpuscular Volume 92 fl (79-97); Platelet Count 186 K/mm3 (140-440); White Blood Count 7.9 K/mm3 (4.5-11.0)
[2017-08-26 06:12] LABS: Red Cell Distribution Width 20.2 % (13.2-15.2)
[2017-08-26 06:34] LABS: Albumin 3.1 g/dL (3.9-5); Albumin/Globulin Ratio 0.6 %; Bilirubin,Total 0.5 mg/dL (0.1-1.2); Calcium 8.5 mg/dL (8.4-10.2); Chloride 88.2 mmol/L (98-107); Potassium 4.2 mmol/L (3.6-5.0); Total Protein 8.1 g/dL (6.3-8.2)
[2017-08-26] MEDS: MORPHINE IV PRN (06:43)
[2017-08-26] MEDS: ZOFRAN IV PRN (07:41)
[2017-08-26] MEDS: NOVOLOG SUB-Q SCH ×3 (07:46→16:56)
--- NOTE | 2017-08-26 07:57 | Progress Note ---
Assessment and Plan 1. ESRD: Continue HD three times a week, TTS schedule. 2. Volume overload: Improved after hemodialysis. 3. Hyperkalemia: Improved. 4. Anemia: Epogen as needed. 5. Uncontrolled HTN: BP is better now. Monitor BP. 6. H/o CAD. Subjective Date of service: 08/26/17 Principal diagnosis: acute on chronic systolic heart failure Interval history: Patient is feeling ok. Objective - Vital Signs Vital signs: Vital Signs - 12hr 08/25/17 08/25/17 08/25/17 20:20 22:05 23:17 Temperature 98.7 F Pulse Rate 84 88 Respiratory 18 Rate Blood Pressure 136/64 125/65 O2 Sat by Pulse 100 82 L Oximetry - General Appearance General appearance: well-developed, appears stated age, other (no distress) EENT: ATNC, PERRL, hearing intact Neck: supple Respiratory: Present: Clear to Ascultation Cardiology: regular, S1S2, no murmurs Gastrointestinal: normoactive bowel sounds, no tenderness, no distended Integumentary: no rash, warm and dry Neurologic: no focal deficit, no asterixis, alert and oriented x3 Musculoskeletal: other (no edema, b/l BKA, left arm AVG) Psychiatric: mood/affect appropriate, cooperative - Lab 08/26/17 05:14 08/26/17 05:14 Most recent lab results Calcium 8.5 mg/dL (8.4-10.2) 08/26/17 05:14 Phosphorus 6.40 mg/dL (2.5-4.5) H 08/25/17 06:14 Magnesium 1.90 mg/dL (1.7-2.3) 08/25/17 06:14
--- NOTE | 2017-08-26 09:12 | Discharge Summary ---
Providers - Providers Date of Admission: 08/23/17 14:51 Attending physician: AMRGY LAGUNA MD 08/23/17 11:47 Consult to Physician [CONS] Urgent Consulting Provider: DANIELLE NEGRON Reason For Exam: esrd needing dialysis, pulm edema Notified:: y Primary care physician: BOOM STICK MAN Hospitalization Reason for admission: HYPERTENSIVE Condition: Stable Hospital course: 52-year-old female with a past medical history bilateral AKA, end-stage renal disease on dialysis, hypertension, and other medical conditions presents to the hospital complains of needing dialysis. Patient is due for dialysis today to be compliant with a Friday, , and Friday dialysis. Patient called the clinic and they are closed due to inclement weather and therefore patient came here. Room saturation 88% and improved to 100% on liters nasal cannula. Patient denies pain but complains of feeling anxious. Construction Project Assistant: Dr. Agustin. Patient proceeded to have dialysis with improvement of symptoms. She is clinically stable she did have a few episodes of hypoglycemia secondary to poor by mouth intake which has improved. This was also treated. Patient is clinically stable at this point for discharge to discuss compliance with her she verbalized understanding considering previous admissions for the same. She will follow up with beater engineer and also with her manager mba. Previous medical records were reviewed and patient admitted here 07/28-08/04 and for hypoxemia secondary to volume overload and pneumonia. Acute exacerbation of congestive heart failure End-stage renal dialysis on hemodialysis: Hypertension Diabetes mellitus Diabetic peripheral neuropathy Anemia: Secondary to CKD. Hyperkalemia: GERD: On PPIs. Disposition: TO HOME OR SELFCARE Time spent for discharge: 35 MINS Core Measure Documentation - Palliative Care Palliative Care/ Comfort Measures: Not Applicable - Core Measures Any of the following diagnoses?: none - VTE Discharge Requirements Deep Vein Thrombosis/Pulmonary Embolism Present on Admission: No Exam - Physical Exam Narrative exam: General appearance: Present: no acute distress, well-nourished - EENT Eyes: PERRL, EOM intact ENT: hearing intact, clear oral mucosa Ears: bilateral: normal - Neck Neck: supple, normal ROM - Respiratory Respiratory effort: normal Respiratory: bilateral: CTA - Breasts Breasts: normal - Cardiovascular Rhythm: regular Heart Sounds: Present: S1 & S2. Absent: gallop, rub Extremities: pulses intact, No edema, normal color, Full ROM - Gastrointestinal General gastrointestinal: Present: soft, non-tender, non-distended, normal bowel sounds - Genitourinary Female genitourinary: normal - Integumentary Integumentary: clear, warm, dry - Musculoskeletal Musculoskeletal: B/L BKA, - Neurologic Neurologic: moves all extremities - Psychiatric Psychiatric: memory intact, appropriate mood/affect, intact judgment & insight - Constitutional Vitals: Temp Pulse Resp BP Pulse Ox 98.7 F 88 18 125/65 100 08/25/17 23:17 08/25/17 23:17 08/25/17 23:17 08/25/17 23:17 08/26/17 08:45 Plan Activity: advance as tolerated, fall precautions Diet: low fat Special Instructions: record daily weights, record daily BP diary Follow up with: PRIMARY CARE, [Primary Care Provider] - 3-5 Days DANIELLE NEGRON MD [Staff Physician] - 7 Days Prescriptions: amLODIPine [Norvasc] 10 mg PO DAILY #30 tablet Ondansetron [Zofran Odt] 4 mg PO Q8HR #30 tab.[email or web address]
[2017-08-26] MEDS ORDERED: D50W (25GM) Syringe IV ONE (10:37)
[2017-08-26] MEDS: BABY ASPIRIN PO SCH (10:51)
[2017-08-26] MEDS: RENVELA PO SCH ×3 (10:51→17:26)
[2017-08-26] MEDS: COZAAR PO SCH (10:58)
[2017-08-26] MEDS: HEPARIN SUB-Q SCH (10:59)
[2017-08-26] MEDS: LOPRESSOR PO SCH (10:59)
[2017-08-26] MEDS: NORVASC PO SCH (10:59)
[2017-08-26] MEDS: CARAFATE PO SCH (11:00)
[2017-08-26] MEDS: IMDUR PO SCH (11:00)
[2017-08-26] MEDS ORDERED: D50W (25GM) Vial IV ONE ×2 (11:00→16:53)
[2017-08-26] MEDS: LYRICA PO SCH (11:34)
[2017-08-26] MEDS: DILAUDID IV PRN ×2 (11:42→17:43)
[2017-08-26] MEDS ORDERED: PROCRIT SUB-Q ONE (12:00)
--- NOTE | 2017-08-26 21:33 | Progress Note ---
Assessment and Plan Assessment and plan: 52-year-old female with a past medical history bilateral AKA, end-stage renal disease on dialysis, hypertension, and other medical conditions presents to the hospital complains of needing dialysis. Patient is due for dialysis today to be compliant with a Friday, , and Friday dialysis. Patient called the clinic and they are closed due to inclement weather and therefore patient came here. Room saturation 88% and improved to 100% on liters nasal cannula. Patient denies pain but complains of feeling anxious. Floor Representative: Dr. Agustin Previous medical records were reviewed and patient admitted here 07/28-08/04 and for hypoxemia secondary to volume overload and pneumonia. Acute exacerbation of congestive heart failure: Secondary to volume overload. Patient is on hemodialysis. On beta orly, ARB. End-stage renal dialysis on hemodialysis: Nephrology following, patient is on hemodialysis on Tuesdays, and Saturdays. Hypertension controlled: On antihypertensive meds. Diabetes mellitus: Sliding scale insulin. Hypoglycemia- D25 For replacement. Diabetic peripheral neuropathy: On Lyrica. Anemia: Secondary to CKD. Hyperkalemia: corrected GERD: On PPIs. DVT prophylaxis: On heparin History Interval history: Patient seen and examined, in no acute distress at this time. Hospitalist Physical - Physical exam Narrative exam: General appearance: Present: no acute distress, well-nourished - EENT Eyes: PERRL, EOM intact ENT: hearing intact, clear oral mucosa Ears: bilateral: normal - Neck Neck: supple, normal ROM - Respiratory Respiratory effort: normal Respiratory: bilateral: CTA - Breasts Breasts: normal - Cardiovascular Rhythm: regular Heart Sounds: Present: S1 & S2. Absent: gallop, rub Extremities: pulses intact, No edema, normal color, Full ROM - Gastrointestinal General gastrointestinal: Present: soft, non-tender, non-distended, normal bowel sounds - Genitourinary Female genitourinary: normal - Integumentary Integumentary: clear, warm, dry - Musculoskeletal Musculoskeletal: B/L BKA, - Neurologic Neurologic: moves all extremities - Psychiatric Psychiatric: memory intact, appropriate mood/affect, intact judgment & insight - Constitutional Vitals: Temp Pulse Resp BP Pulse Ox 98.6 F 82 18 139/68 95 08/26/17 16:23 08/26/17 16:23 08/26/17 16:23 08/26/17 17:34 08/26/17 19:49 General appearance: Present: no acute distress, well-nourished Results - Labs CBC & Chem 7: 08/26/17 05:14 08/26/17 05:14 Labs: Laboratory Last Values WBC 7.9 K/mm3 (4.5-11.0) 08/26/17 05:14 RBC 3.20 M/mm3 (3.65-5.03) L 08/26/17 05:14 Hgb 9.1 gm/dl (10.1-14.3) L 08/26/17 05:14 Hct 29.4 % (30.3-42.9) L 08/26/17 05:14 MCV 92 fl (79-97) 08/26/17 05:14 MCH 28 pg (28-32) 08/26/17 05:14 MCHC 31 % (30-34) 08/26/17 05:14 RDW 20.2 % (13.2-15.2) H 08/26/17 05:14 Plt Count 186 K/mm3 (140-440) 08/26/17 05:14 Lymph % (Auto) 14.9 % (13.4-35.0) 08/26/17 05:14 [place] % (Auto) 8.8 % (0.0-7.3) H 08/26/17 05:14 Eos % (Auto) 7.3 % (0.0-4.3) H 08/26/17 05:14 Baso % (Auto) 0.4 % (0.0-1.8) 08/26/17 05:14 Lymph # 1.2 K/mm3 (1.2-5.4) 08/26/17 05:14 [place] # 0.7 K/mm3 (0.0-0.8) 08/26/17 05:14 Eos # 0.6 K/mm3 (0.0-0.4) H 08/26/17 05:14 Baso # 0.0 K/mm3 (0.0-0.1) 08/26/17 05:14 Add Manual Diff Complete 08/23/17 11:22 Seg Neutrophils % 68.6 % (40.0-70.0) 08/26/17 05:14 Seg Neutrophils # 5.4 K/mm3 (1.8-7.7) 08/26/17 05:14 Sodium 132 mmol/L (137-145) L 08/26/17 05:14 Potassium 4.2 mmol/L (3.6-5.0) D 08/26/17 05:14 Chloride 88.2 mmol/L (98-107) L 08/26/17 05:14 Carbon Dioxide 28 mmol/L (22-30) 08/26/17 05:14 Anion Gap 20 mmol/L 08/26/17 05:14 BUN 51 mg/dL (7-17) H 08/26/17 05:14 Creatinine 8.5 mg/dL (0.7-1.2) H 08/26/17 05:14 Estimated GFR 6 ml/min 08/26/17 05:14 BUN/Creatinine Ratio 6 % 08/26/17 05:14 Glucose 55 mg/dL (65-100) L 08/26/17 05:14 POC Glucose 99 (70-105) 08/26/17 19:58 Hemoglobin A1c 7.9 % (4-6) H 08/25/17 06:14 Calcium 8.5 mg/dL (8.4-10.2) 08/26/17 05:14 Phosphorus 6.40 mg/dL (2.5-4.5) H 08/25/17 06:14 Magnesium 1.90 mg/dL (1.7-2.3) 08/25/17 06:14 Total Bilirubin 0.50 mg/dL (0.1-1.2) 08/26/17 05:14 AST 11 units/L (5-40) 08/26/17 05:14 ALT 10 units/L (7-56) 08/26/17 05:14 Alkaline Phosphatase 279 units/L (35-129) H 08/26/17 05:14 Total Protein 8.1 g/dL (6.3-8.2) 08/26/17 05:14 Albumin 3.1 g/dL (3.9-5) L 08/26/17 05:14 Albumin/Globulin Ratio 0.6 % 08/26/17 05:14
[2017-08-27] MEDS: NOVOLOG SUB-Q SCH ×3 (01:13→14:37)
[2017-08-27] MEDS: LOPRESSOR PO SCH ×2 (01:24→14:36)
[2017-08-27] MEDS: CARAFATE PO SCH ×2 (01:25→14:35)
[2017-08-27] MEDS: HEPARIN SUB-Q SCH ×2 (01:25→14:34)
[2017-08-27] MEDS: LEVEMIR SUB-Q SCH (01:26)
[2017-08-27] MEDS: MORPHINE IV PRN (01:26)
[2017-08-27] MEDS: ZOFRAN IV PRN (07:58)
[2017-08-27] MEDS: RENVELA PO SCH ×2 (08:06→14:38)
[2017-08-27 08:32] VITALS: BP 145/66
--- NOTE | 2017-08-27 09:14 | Progress Note ---
Assessment and Plan 1. ESRD: Continue HD three times a week, TTS schedule. 2. Volume overload: Improved after hemodialysis. 3. Hyperkalemia: Improved. 4. Anemia: Epogen as needed. 5. Uncontrolled HTN: BP is better now. Monitor BP. 6. H/o CAD. Subjective Date of service: 08/27/17 Principal diagnosis: acute on chronic systolic heart failure Interval history: Patient is feeling ok. Objective - Vital Signs Vital signs: Vital Signs - 12hr 08/26/17 08/26/17 08/26/17 21:15 21:30 21:45 Temperature Pulse Rate 90 89 89 Respiratory Rate Blood Pressure 121/65 123/60 121/65 O2 Sat by Pulse Oximetry 08/26/17 08/26/17 08/26/17 22:00 22:15 22:30 Temperature Pulse Rate 88 95 H 86 Respiratory Rate Blood Pressure 130/68 156/64 132/62 O2 Sat by Pulse Oximetry 08/26/17 08/26/17 08/26/17 22:45 23:00 23:15 Temperature Pulse Rate 88 88 83 Respiratory Rate Blood Pressure 148/72 138/64 140/69 O2 Sat by Pulse Oximetry 08/26/17 08/26/17 08/26/17 23:30 23:45 23:55 Temperature 98.0 F Pulse Rate 88 91 H 92 H Respiratory 18 Rate Blood Pressure 124/68 127/53 138/65 O2 Sat by Pulse Oximetry 08/27/17 08/27/17 08/27/17 00:47 01:24 08:07 Temperature 98.5 F 99.0 F Pulse Rate 92 H 92 H 91 H Respiratory 18 18 Rate Blood Pressure 132/50 132/50 145/66 O2 Sat by Pulse 99 93 Oximetry - General Appearance General appearance: well-developed, appears stated age, other (no distress) EENT: ATNC, PERRL, hearing intact, vision intact Neck: supple Respiratory: Present: Clear to Ascultation Cardiology: regular, S1S2, no murmurs Gastrointestinal: normoactive bowel sounds, no tenderness, no distended Integumentary: no rash, warm and dry Neurologic: no focal deficit, no asterixis, alert and oriented x3 Musculoskeletal: other (no edema, bilateral BKA, left arm AVG) Psychiatric: mood/affect appropriate, cooperative - Lab 08/26/17 05:14 08/26/17 05:14 Most recent lab results Calcium 8.5 mg/dL (8.4-10.2) 08/26/17 05:14 Phosphorus 6.40 mg/dL (2.5-4.5) H 08/25/17 06:14 Magnesium 1.90 mg/dL (1.7-2.3) 08/25/17 06:14
[2017-08-27] MEDS: COZAAR PO SCH (14:35)
[2017-08-27] MEDS: BABY ASPIRIN PO SCH (14:35)
[2017-08-27] MEDS: LYRICA PO SCH (14:36)
[2017-08-27] MEDS: IMDUR PO SCH (14:36)
[2017-08-27] MEDS: NORVASC PO SCH (14:37)
== END 2017-08-27 12:30 | disposition home or self-care (01) | DRG 291 ==
LOC: ED 10:18 → 3A 14:51
PROVIDERS: ADMIT Internal Medicine; ATTEND Internal Medicine
PROC: 5A1D70Z Performance of Urinary Filtration, Intermittent, Less than 6 Hours Per Day (ICD-10-PCS; principal; 2017-08-23)
PROC: 5A1D70Z Performance of Urinary Filtration, Intermittent, Less than 6 Hours Per Day (ICD-10-PCS; 2017-08-26)
DX: I13.2 Hypertensive heart and chronic kidney disease with heart failure and with stage 5 chronic kidney disease, or end stage renal disease (principal); N18.6 End stage renal disease; I50.23 Acute on chronic systolic (congestive) heart failure; I16.1 Hypertensive emergency; Z99.2 Dependence on renal dialysis; E11.42 Type 2 diabetes mellitus with diabetic polyneuropathy; K21.9 Gastro-esophageal reflux disease without esophagitis; E87.70 Fluid overload, unspecified; Z89.612 Acquired absence of left leg above knee; Z89.611 Acquired absence of right leg above knee; Z88.1 Allergy status to other antibiotic agents; Z88.2 Allergy status to sulfonamides; Z88.8 Allergy status to other drugs, medicaments and biological substances; Z79.899 Other long term (current) drug therapy; I25.2 Old myocardial infarction; E11.22 Type 2 diabetes mellitus with diabetic chronic kidney disease; Z98.51 Tubal ligation status; I25.10 Atherosclerotic heart disease of native coronary artery without angina pectoris; Z95.5 Presence of coronary angioplasty implant and graft; Z79.82 Long term (current) use of aspirin; D63.1 Anemia in chronic kidney disease; E11.649 Type 2 diabetes mellitus with hypoglycemia without coma
CPT/HCPCS: 36415; 71010; 80053; 82962; 83036; 83735; 84100; 85025; 93005; 93010; 94760; 96374; 96375; A9270-GY; J0360; J0885; J1170; J1200; J1644; J1815; J1818; J1940; J2270; J2405; J3360

== ENCOUNTER 2017-09-02 05:12 | Inpatient (IN) | payer MEDICARE ==
[2017-09-02] MEDS ORDERED: LASIX IV ONE (05:17)
[2017-09-02] MEDS ORDERED: PROVENTIL IH ONE (05:17)
[2017-09-02] MEDS ORDERED: ATROVENT IH ONE (05:17)
[2017-09-02] MEDS ORDERED: NITRO-BID 2% TP ONE ×2 (05:17→05:19)
[2017-09-02] MEDS ORDERED: LASIX ONE (05:19)
[2017-09-02] MEDS ORDERED: NITROSTAT SL ONE ×2 (05:19→05:20)
[2017-09-02] MEDS ORDERED: TRIDIL DRIP 50MG/250ML 50 MG/250 ML BOTTLE IV ONE (05:45)
[2017-09-02] MEDS ORDERED: ATIVAN ONE (05:46)
--- NOTE | 2017-09-02 05:47 | XRay Report ---
FINAL REPORT EXAM: XR CHEST 1V AP HISTORY: Dyspnea TECHNIQUE: A portable upright view of the chest was obtained. FINDINGS: The lungs are diffusely congested with bilateral effusions. There is airspace disease in both lung bases. Superimposed pneumonia cannot be excluded. The heart is mildly enlarged. There are EKG leads overlying the chest wall. The bones and soft tissues do not show any acute changes. IMPRESSION: Cardiomegaly with congestive heart failure pattern and bilateral effusions. Superimpose pneumonia in the lung bases cannot be excluded.
[2017-09-02] MEDS ORDERED: TRIDIL DRIP 50MG/250ML 50 MG/250 ML BOTTLE ONE (05:49)
--- NOTE | 2017-09-02 05:53 | Emergency Department Report ---
ED Shortness of Breath HPI - General Chief Complaint: Dyspnea/Respdistress Stated Complaint: KURTIS Time Seen by Provider: 09/02/17 05:17 Source: patient, EMS Mode of arrival: Stretcher Limitations: Other - History of Present Illness Initial Comments: 52-year-old female bilateral amputee end-stage renal disease on hemodialysis last dialysis Friday. Sitting on toilet this a.m. began to have extreme shortness of breath felt diaphoretic and couldn't get her air called 911. She presents in moderate to severe respiratory distress on CPAP and route per EMS. Initial blood pressure was elevated at 218/107. She is awake and alert and following commands denies chest pain denies abdominal pain denies fever no headache no stiff neck no focal neuro complaints here for evaluation of severe shortness of breath since this a.m. Due for dialysis today. 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 -: Sudden, This morning Severity: moderate Worsens With: lying flat - Related Data Home Medications Medication Instructions Recorded Confirmed Last Taken ISOSORBIDE MONOnitrate [Imdur ER] 60 mg PO DAILY 07/28/17 08/25/17 Unknown Losartan [Cozaar] 50 mg PO QDAY 07/28/17 08/25/17 Unknown Esomeprazole Magnesium [NexIUM] 20 mg PO QAM 08/25/17 08/25/17 Unknown Insulin Aspart [NovoLOG Flexpen] 12 units SQ QID 08/25/17 08/25/17 Unknown Insulin Detemir [Levemir Flextouch] 15 units SUB-Q QHS 08/25/17 08/25/17 Unknown Sevelamer Carbonate [Renvela] 2 tab PO TIDWM 08/25/17 08/25/17 Unknown Previous Rx's Medication Instructions Recorded Last Taken Type Metoprolol Tartrate 25 mg PO BID #60 tablet 08/04/17 Unknown Rx Pregabalin [Lyrica] 75 mg PO QDAY #30 capsule 08/04/17 Unknown Rx Sucralfate 1 gm PO BID #60 tablet 08/04/17 Unknown Rx oxyCODONE /ACETAMINOPHEN [Percocet 1 tab PO Q6H PRN #60 tablet 08/04/17 Unknown Rx 5/325 mg] ALBUTEROL NEB's [Proventil 0.083% 2.5 mg IH Q3HRT PRN nebu 08/26/17 Unknown Rx NEBS] Aspirin [Aspirin BABY CHEW TAB] 81 mg PO QDAY tab.chew 08/26/17 Unknown Rx AtorvaSTATin [Lipitor] 40 mg PO QHS tablet 08/26/17 Unknown Rx Ondansetron [Zofran Odt] 4 mg PO Q8HR #30 tab.rapdis 08/26/17 Unknown Rx amLODIPine [Norvasc] 10 mg PO DAILY #30 tablet 08/26/17 Unknown Rx Allergies Allergy/AdvReac Type Severity Reaction Status Date / Time azithromycin [From Zithromax] Allergy Rash Verified 07/28/17 07:11 sulfamethoxazole Allergy Unknown Verified 07/28/17 04:12 [From Bactrim] trimethoprim [From Bactrim] Allergy Unknown Verified 07/28/17 04:12 ED Review of Systems ROS: Stated complaint: KURTIS Other details as noted in HPI Comment: Unobtainable due to pts medical conditions Constitutional: denies: fever Respiratory: shortness of breath, SOB at rest Cardiovascular: edema. denies: chest pain, syncope ED Past Medical Hx - Past Medical History Hx Hypertension: Yes Hx Heart Attack/AMI: Yes (2009, 2013) Hx Congestive Heart Failure: Yes Hx Diabetes: Yes Hx Deep Vein Thrombosis: No Hx Pulmonary Embolism: No Hx Renal Disease: Yes (, , Fri) Hx Asthma: No Hx COPD: No Hx Tuberculosis: No Hx HIV: No - Surgical History Hx Coronary Stent: No Hx Pacemaker: No Hx Internal Defibrillator: No Additional Surgical History: Tubal ligation. R. Chest permacath. Bilateral below the knee amputee 1999 - Social History Smoking Status: Current Some Day Smoker - Medications Home Medications: Home Medications Medication Instructions Recorded Confirmed Last Taken Type ISOSORBIDE MONOnitrate [Imdur ER] 60 mg PO DAILY 07/28/17 08/25/17 Unknown History Losartan [Cozaar] 50 mg PO QDAY 07/28/17 08/25/17 Unknown History Metoprolol Tartrate 25 mg PO BID #60 tablet 08/04/17 08/25/17 Unknown Rx Pregabalin [Lyrica] 75 mg PO QDAY #30 capsule 08/04/17 08/25/17 Unknown Rx Sucralfate 1 gm PO BID #60 tablet 08/04/17 08/25/17 Unknown Rx oxyCODONE /ACETAMINOPHEN [Percocet 1 tab PO Q6H PRN #60 tablet 08/04/17 Unknown Rx 5/325 mg] Esomeprazole Magnesium [NexIUM] 20 mg PO QAM 08/25/17 08/25/17 Unknown History Insulin Aspart [NovoLOG Flexpen] 12 units SQ QID 08/25/17 08/25/17 Unknown History Insulin Detemir [Levemir Flextouch] 15 units SUB-Q QHS 08/25/17 08/25/17 Unknown History Sevelamer Carbonate [Renvela] 2 tab PO TIDWM 08/25/17 08/25/17 Unknown History ALBUTEROL NEB's [Proventil 0.083% 2.5 mg IH Q3HRT PRN nebu 08/26/17 Unknown Rx NEBS] Aspirin [Aspirin BABY CHEW TAB] 81 mg PO QDAY tab.chew 08/26/17 Unknown Rx AtorvaSTATin [Lipitor] 40 mg PO QHS tablet 08/26/17 Unknown Rx Ondansetron [Zofran Odt] 4 mg PO Q8HR #30 tab.rapdis 08/26/17 Unknown Rx amLODIPine [Norvasc] 10 mg PO DAILY #30 tablet 08/26/17 Unknown Rx ED Physical Exam - General Limitations: Other General appearance: alert, in distress, other (moderate to severe respiratory distress with retractions) - Head Head exam: Present: atraumatic, normocephalic - Eye Eye exam: Present: PERRL, EOMI - ENT ENT exam: Present: normal orophraynx - Neck Neck exam: Present: normal inspection. Absent: tenderness, meningismus - Respiratory Respiratory exam: Present: respiratory distress, wheezes, rales, rhonchi, accessory muscle use, prolonged expiratory. Absent: stridor, chest wall tenderness - Cardiovascular Cardiovascular Exam: Present: normal rhythm, tachycardia. Absent: rubs - GI/Abdominal GI/Abdominal exam: Present: soft. Absent: tenderness, guarding, rebound, mass, bruit, pulsatile mass - Extremities Exam Extremities exam: Present: other (bilateral amputee) - Back Exam Back exam: Absent: CVA tenderness (L), vertebral tenderness - Neurological Exam Neurological exam: Present: CN II-XII intact. Absent: motor sensory deficit - Psychiatric Psychiatric exam: Present: normal affect, normal mood, anxious ED Course Vital Signs 09/02/17 09/02/17 05:38 05:43 Pulse Rate 114 H 114 H Blood Pressure 216/104 216/104 - Reevaluation(s) Reevaluation #1: 09/02/17 05:53 Patient arrival was placed on BiPAP blood gas showed normal PCO2 and pH however patient with chest x-ray that shows bilateral pulmonary infiltrates likely this CHF with moderate edema EKG and laboratory studies were obtained patient was given nitrates and Lasix nitrate drip was started given the elevated blood pressure case was discussed with Dr. Ortega who will evaluate patient in ED. ED Medical Decision Making - EKG Data -: EKG Interpreted by Me EKG shows normal: sinus rhythm, ST-T waves (T-wave inversion lateral leads no stemi) Rate: tachycardia - EKG Data When compared to previous EKG there are: previous EKG unavailable - Radiology Data Radiology results: image reviewed interpreted by me: Bilateral pulmonary infiltrates with CHF - Medical Decision Making Patient is improving at this time 0600 on BiPAP. Nitrates and Lasix were given awaiting for evaluation by hospitalist for inpatient admission and orders Critical care attestation.: If time is entered above; I have spent that time in minutes in the direct care of this critically ill patient, excluding procedure time. ED Disposition Clinical Impression: Respiratory distress, CHF (congestive heart failure), ESRD (end stage renal disease) Disposition: OP ADMIT IP TO THIS HOSP Is pt being admited?: Yes Condition: Stable Time of Disposition: 05:59
[2017-09-02 05:59] LABS: Basophils % (Auto) 0.7 % (0.0-1.8); Eosinophils % (Auto) 6.9 % (0.0-4.3); Hematocrit 31.4 % (30.3-42.9); Hemoglobin 9.8 gm/dl (10.1-14.3); Mean Corpuscular HGB Conc 31 % (30-34); Mean Corpuscular Hemoglobin 29 pg (28-32); Mean Corpuscular Volume 91 fl (79-97); Platelet Count 254 K/mm3 (140-440); Red Blood Count 3.44 M/mm3 (3.65-5.03); Red Cell Distribution Width 19.9 % (13.2-15.2); White Blood Count 12.2 K/mm3 (4.5-11.0)
[2017-09-02] MEDS ORDERED: ATIVAN IV ONE (06:02)
[2017-09-02 06:08] LABS: Albumin 3.7 g/dL (3.9-5); Albumin/Globulin Ratio 0.8 %; Bilirubin,Total 0.4 mg/dL (0.1-1.2); Calcium 9.2 mg/dL (8.4-10.2); Chloride 97.7 mmol/L (98-107); Total Protein 8.5 g/dL (6.3-8.2)
[2017-09-02 06:22] LABS: ISTAT Base Excess -4; ISTAT HCO3 21.8; ISTAT PCO2 41.5 (35-45); ISTAT PH 7.329 (7.35-7.45); ISTAT PO2 84 (80-105); ISTAT SO2 95; ISTAT TCO2 23
[2017-09-02] MEDS ORDERED: DULCOLAX PR PRN (07:26)
[2017-09-02] MEDS ORDERED: TYLENOL PO PRN (07:26)
[2017-09-02] MEDS: NORVASC PO SCH ×2 (08:06)
[2017-09-02] MEDS: IMDUR PO SCH ×2 (08:31)
--- NOTE | 2017-09-02 08:45 | History and Physical Report ---
History of Present Illness Date of examination: 09/02/17 Date of admission: 09/02/17 07:26 Chief complaint: shortness of breath History of present illness: Patient is 52 yo with End stage renal disease SRD on dialysis (TTS) , hypertension, CHF, coronary artery disease. She presents with shortness of breath. She states shortness of breath worse on lying flat and on exertion. She denies chest pain. She states she did not miss hemodialysis. Last dialysis was 2 days ago on Sat. She was in acute respiratory distress. She was put on BIPAP. BP was very elevated 205/97 so she was started on Nitroglycerin drip. Will give oral anti-hypertensives to wean off Nitro and admit to Telemetry. patient also needs Urgent hemodialysis. Past History Past Medical History: acute LA, CAD, diabetes, dialysis, ESRD, heart failure, hypertension Past Surgical History: Other (Bilateral BKA) Social history: full code. denies: smoking, alcohol abuse, IV drug use Family history: hypertension Medications and Allergies Allergies Allergy/AdvReac Type Severity Reaction Status Date / Time azithromycin [From Zithromax] Allergy Rash Verified 07/28/17 07:11 sulfamethoxazole Allergy Unknown Verified 07/28/17 04:12 [From Bactrim] trimethoprim [From Bactrim] Allergy Unknown Verified 07/28/17 04:12 Home Medications Medication Instructions Recorded Confirmed Last Taken Type ISOSORBIDE MONOnitrate [Imdur ER] 60 mg PO DAILY 07/28/17 09/03/17 09/02/17 History Losartan [Cozaar] 50 mg PO QDAY 07/28/17 09/03/17 09/02/17 History Metoprolol Tartrate 25 mg PO BID #60 tablet 08/04/17 09/03/17 09/02/17 Rx Pregabalin [Lyrica] 75 mg PO QDAY #30 capsule 08/04/17 09/03/17 09/02/17 Rx Sucralfate 1 gm PO BID #60 tablet 08/04/17 09/03/17 09/02/17 Rx oxyCODONE /ACETAMINOPHEN [Percocet 1 tab PO Q6H PRN #60 tablet 08/04/1709/02/17 Rx 5/325 mg] Esomeprazole Magnesium [NexIUM] 20 mg PO QAM 1209/03/17 09/02/17 History Insulin Aspart [NovoLOG Flexpen] 12 units SQ TID 08/25/17 09/03/17 09/02/17 History Insulin Detemir [Levemir Flextouch] 15 units SUB-Q QHS 08/25/17 09/03/17 History Sevelamer Carbonate [Renvela] 2 tab PO TIDWM 08/25/17 09/03/17 09/02/17 History ALBUTEROL NEB's [Proventil 0.083% 2.5 mg IH Q3HRT PRN nebu 08/26/17 09/03/17 Rx NEBS] Aspirin [Aspirin BABY CHEW TAB] 81 mg PO QDAY tab.chew 08/26/17 09/03/17 Rx AtorvaSTATin [Lipitor] 40 mg PO QHS tablet 08/26/17 09/03/17 09/02/17 Rx Ondansetron [Zofran Odt] 4 mg PO Q8HR #30 tab.rapdis 08/26/17 09/03/17 09/02/17 Rx amLODIPine [Norvasc] 10 mg PO DAILY #30 tablet 08/26/17 09/03/17 09/02/17 Rx Active Meds: Active Medications Acetaminophen (Tylenol) 650 mg PO Q4H PRN PRN Reason: Pain MILD(1-3)/Fever >100.5/STEWART Amlodipine Besylate (Norvasc) 10 mg PO DAILY [facility] Last Admin: 09/02/17 08:06 Dose: 10 mg Bisacodyl (Dulcolax) 10 mg [place] QDAY PRN PRN Reason: Constipation unrelieved by MOM Nitroglycerin/Dextrose (Tridil Drip 50mg/250ml) 50 mg in 250 mls @ 3 mls/hr IV TITR ONE; 10 MCG/MIN PRN Reason: Protocol Stop: 09/05/17 17:04 Last Titration: 09/02/17 08:34 Dose: 10 mcg/min, 3 mls/hr Isosorbide Mononitrate (Imdur) 60 mg PO DAILY [facility] Last Admin: 09/02/17 08:31 Dose: 60 mg Losartan Potassium (Cozaar) 50 mg PO QDAY [facility] Metoprolol Tartrate (Lopressor) 25 mg PO BID [place] Morphine Sulfate (Morphine) 2 mg IV Q4H PRN PRN Reason: Pain, Moderate (4-6) Ondansetron HCl (Zofran) 4 mg IV Q8H PRN PRN Reason: N/V unrelieved by Reglan Review of Systems All systems: negative (No fever, no cough, no chest pain, no abd pain. All other sysyems reviewed and are negative.) Exam - Physical Exam Narrative exam: GEN APPEARANCE : In mild acute respiratory distress, BIPAP mask on HEENT: Normocephalic, atraumatic NECK : supple, no JVD LUNGS: Bilateral crackles. No wheeze HEART: S1 and S2 regular, no murmurs, rubs or gallop, ABD: Soft, non tender, non distended, normal bowel sounds EXT: Bilateral below knee amputation, no clubbing, no cyanosis NEURO: Awake,alert, oriented x 3, no facial asymmetry,no focal signs Psych: Normal mood - Constitutional Vitals: Temp Pulse Resp BP Pulse Ox 97.9 F 97 H 21 150/66 100 09/02/17 07:38 09/02/17 08:31 09/02/17 08:06 09/02/17 08:31 09/02/17 08:06 Results - Labs CBC & Chem 7: 09/03/17 05:36 09/03/17 05:36 Labs: Abnormal lab results 09/02/17 09/02/17 09/02/17 Range/Units 05:28 05:28 05:28 WBC 12.2 H (4.5-11.0) K/mm3 RBC 3.44 L (3.65-5.03) M/mm3 Hgb 9.8 L (10.1-14.3) gm/dl RDW 19.9 H (13.2-15.2) % Eos % (Auto) 6.9 H (0.0-4.3) % Eos # 0.8 H (0.0-0.4) K/mm3 Seg Neutrophils % 71.4 H (40.0-70.0) % Seg Neutrophils # 8.7 H (1.8-7.7) K/mm3 POC ABG pH (7.35-7.45) Chloride 97.7 L (98-107) mmol/L Carbon Dioxide 20 L (22-30) mmol/L BUN 63 H (7-17) mg/dL Creatinine 8.3 H (0.7-1.2) mg/dL Glucose 291 H (65-100) mg/dL AST 54 H (5-40) units/L Alkaline Phosphatase 490 H (35-129) units/L Troponin T 0.181 H* (0.00-0.029) ng/mL NT-Pro-B Natriuret Pep > 06171 H (0-900) pg/mL Total Protein 8.5 H (6.3-8.2) g/dL Albumin 3.7 L (3.9-5) g/dL 09/02/17 Range/Units 05:29 WBC (4.5-11.0) K/mm3 RBC (3.65-5.03) M/mm3 Hgb (10.1-14.3) gm/dl RDW (13.2-15.2) % Eos % (Auto) (0.0-4.3) % Eos # (0.0-0.4) K/mm3 Seg Neutrophils % (40.0-70.0) % Seg Neutrophils # (1.8-7.7) K/mm3 POC ABG pH 7.329 L (7.35-7.45) Chloride (98-107) mmol/L Carbon Dioxide (22-30) mmol/L BUN (7-17) mg/dL Creatinine (0.7-1.2) mg/dL Glucose (65-100) mg/dL AST (5-40) units/L Alkaline Phosphatase (35-129) units/L Troponin T (0.00-0.029) ng/mL NT-Pro-B Natriuret Pep (0-900) pg/mL Total Protein (6.3-8.2) g/dL Albumin (3.9-5) g/dL Assessment and Plan Acute respiratory failure due to acute pulmonary edema. Admit to Telemetry. She is on BIPAP. May wean off BIPAP as tolerated ESRD on dialysis. Needs urgent dialysis today. I consulted and discussed with Dr. Ramirez, Nephrology. Patient states she did not miss dialysis. Acute pulmonary edema due to fluid overload. Acute on chronic combined systolic and diastolic CHF. Lasix given in ED. Hypertensive emergency. She is currently on Nitroglycerin drip. Will give oral anti-hypertensives,and wean off Nitro. CAD. No chest pain.She is on Aspirin, Imdur, Lopressor,Cozaar Elevated Troponin. No chest pain. Obtain serial Troponins. She is already on Aspirin, betablockers for CAD s/p bilateral BKA DVT prophylaxis with heparin subcut. Full code status
[2017-09-02] MEDS ORDERED: NACL 0.9% 100 ML IV PRN (09:12)
--- NOTE | 2017-09-02 09:14 | Consultation ---
History of Present Illness - Reason for Consult Consult date: 09/02/17 end stage renal disease, other (volume overload) - History of Present Illness The patient is a 52 year old AAF who is well known to our servcie with medical history significant for Hypertension, Type 2 DM, Bilateral BKA, CHF, CAD s/p stent, Anemia and ESRD on hemodialysis(TTS) presented to the hospital with shortness of breath. Unable to obtain any history from patient at this time. She began to have extreme shortness of breath, felt diaphoretic and called 911. She presented with moderate to severe respiratory distress and currently on BIPAP. Initial blood pressure was 218/107. She is due for hemodialysis today and didnot miss any treatment. Her primary Manager Telemarketing is . CXR suggestive of Pulmonary edema. Her hemodialysis access is left arm AVG. Patient had a similar admission on 08/23/17 and was discharged on 08/27/17. Past History Past Medical History: dialysis, ESRD, heart failure, hypertension Past Surgical History: Other (Bilateral BKA) Social history: full code. denies: smoking, alcohol abuse, IV drug use Family history: hypertension Medications and Allergies Allergies Allergy/AdvReac Type Severity Reaction Status Date / Time azithromycin [From Zithromax] Allergy Rash Verified 07/28/17 07:11 sulfamethoxazole Allergy Unknown Verified 07/28/17 04:12 [From Bactrim] trimethoprim [From Bactrim] Allergy Unknown Verified 07/28/17 04:12 Home Medications Medication Instructions Recorded Confirmed Last Taken Type ISOSORBIDE MONOnitrate [Imdur ER] 60 mg PO DAILY 07/28/17 08/25/17 Unknown History Losartan [Cozaar] 50 mg PO QDAY 07/28/17 08/25/17 Unknown History Metoprolol Tartrate 25 mg PO BID #60 tablet 08/04/17 08/25/17 Unknown Rx Pregabalin [Lyrica] 75 mg PO QDAY #30 capsule 08/04/17 08/25/17 Unknown Rx Sucralfate 1 gm PO BID #60 tablet 08/04/17 08/25/17 Unknown Rx oxyCODONE /ACETAMINOPHEN [Percocet 1 tab PO Q6H PRN #60 tablet 08/04/17 Unknown Rx 5/325 mg] Esomeprazole Magnesium [NexIUM] 20 mg PO QAM 08/25/17 08/25/17 Unknown History Insulin Aspart [NovoLOG Flexpen] 12 units SQ QID 08/25/17 08/25/17 Unknown History Insulin Detemir [Levemir Flextouch] 15 units SUB-Q QHS 08/25/17 08/25/17 Unknown History Sevelamer Carbonate [Renvela] 2 tab PO TIDWM 08/25/17 08/25/17 Unknown History ALBUTEROL NEB's [Proventil 0.083% 2.5 mg IH Q3HRT PRN nebu 08/26/17 Unknown Rx NEBS] Aspirin [Aspirin BABY CHEW TAB] 81 mg PO QDAY tab.chew 08/26/17 Unknown Rx AtorvaSTATin [Lipitor] 40 mg PO QHS tablet 08/26/17 Unknown Rx Ondansetron [Zofran Odt] 4 mg PO Q8HR #30 tab.rapdis 08/26/17 Unknown Rx amLODIPine [Norvasc] 10 mg PO DAILY #30 tablet 08/26/17 Unknown Rx Active Meds: Active Medications Acetaminophen (Tylenol) 650 mg PO Q4H PRN PRN Reason: Pain MILD(1-3)/Fever >100.5/STEWART Amlodipine Besylate (Norvasc) 10 mg PO DAILY [facility] Last Admin: 09/02/17 08:06 Dose: 10 mg Bisacodyl (Dulcolax) 10 mg SD QDAY PRN PRN Reason: Constipation unrelieved by MOM Nitroglycerin/Dextrose (Tridil Drip 50mg/250ml) 50 mg in 250 mls @ 3 mls/hr IV TITR ONE; 10 MCG/MIN PRN Reason: Protocol Stop: 09/05/17 17:04 Last Titration: 09/02/17 08:44 Dose: 5 mcg/min, 1.5 mls/hr Isosorbide Mononitrate (Imdur) 60 mg PO DAILY [facility] Last Admin: 09/02/17 08:31 Dose: 60 mg Losartan Potassium (Cozaar) 50 mg PO QDAY [facility] Metoprolol Tartrate (Lopressor) 25 mg PO BID [facility] Morphine Sulfate (Morphine) 2 mg IV Q4H PRN PRN Reason: Pain, Moderate (4-6) Ondansetron HCl (Zofran) 4 mg IV Q8H PRN PRN Reason: N/V unrelieved by Reglan Review of Systems ROS unobtainable: due to mental status (patient is on BIPAP) Exam - Vital Signs Vital signs: Vital Signs Pulse Resp Pulse Ox 113 H 18 97 09/02/17 05:14 09/02/17 05:14 09/02/17 05:14 - General Appearance General appearance: well-developed, appears stated age, fatigue, frail, other ( on BIPAP) EENT: ATNC, PERRL Neck: Present: neck supple, trachea midline Respiratory: Other (coarse breath sounds) Heart: regular, S1S2, no murmurs Gastrointestinal: Present: normoactive bowel sounds. Absent: tenderness, distended Integumentary: no rash, warm and dry Neurologic: other (opens eyes) Musculoskeletal: Present: other (bilateral BKA, no edema, left arm AVG) Results - Lab Results 09/02/17 05:28 09/02/17 05:28 Most recent lab results Calcium 9.2 mg/dL (8.4-10.2) 09/02/17 05:28 Assessment and Plan 1. Volume overload with pumonary edema: Hemodialysis today, orders placed and informed the dialysis nurse. 2. ESRD: Continue HD three times a week. 3. Anemia: Epogen as needed. 4. Uncontrolled HTN: UF with hemodialysis today. Monitor BP. 5. H/o CAD.
[2017-09-02] MEDS ORDERED: NACL 0.9 (PRIMING MACHINE ONLY DIALYSIS) MC ONE (10:43)
[2017-09-02] MEDS: COZAAR PO SCH ×2 (17:43→17:45)
[2017-09-02] MEDS: LOPRESSOR PO SCH ×3 (17:43→21:53)
[2017-09-02] MEDS: MORPHINE IV PRN ×2 (18:20→22:45)
[2017-09-02] MEDS ORDERED: PROVENTIL IH PRN (22:10)
[2017-09-02] MEDS ORDERED: PERCOCET 5/325 PO PRN (22:10)
[2017-09-02] MEDS: ZOFRAN IV PRN (23:05)
[2017-09-02] MEDS: NOVOLOG SUB-Q SCH (23:27)
[2017-09-02] MEDS: LEVEMIR SUB-Q SCH (23:28)
[2017-09-03 06:36] LABS: Hematocrit 27.4 % (30.3-42.9); Hemoglobin 8.9 gm/dl (10.1-14.3); Mean Corpuscular HGB Conc 32 % (30-34); Mean Corpuscular Hemoglobin 29 pg (28-32); Mean Corpuscular Volume 90 fl (79-97); Platelet Count 226 K/mm3 (140-440); Red Blood Count 3.04 M/mm3 (3.65-5.03); Red Cell Distribution Width 19.6 % (13.2-15.2); White Blood Count 8.3 K/mm3 (4.5-11.0)
[2017-09-03] MEDS ORDERED: D50W (25GM) Syringe IV ONE ×2 (06:41→07:00)
[2017-09-03] MEDS: ZOFRAN ODT PO SCH ×3 (06:44→22:47)
[2017-09-03] MEDS ORDERED: D50W (25GM) Vial IV STA (06:45)
[2017-09-03] MEDS: HEPARIN SUB-Q SCH ×2 (06:45→18:51)
[2017-09-03 06:48] LABS: Calcium 8.6 mg/dL (8.4-10.2); Chloride 97.8 mmol/L (98-107); Potassium 4.1 mmol/L (3.6-5.0)
[2017-09-03] MEDS: NOVOLOG SUB-Q SCH ×4 (07:36→22:55)
[2017-09-03] MEDS: RENVELA PO SCH ×3 (08:56→17:22)
[2017-09-03] MEDS: ZOFRAN IV PRN ×2 (09:41→20:03)
--- NOTE | 2017-09-03 09:51 | Progress Note ---
Assessment and Plan Assessment and plan: Acute respiratory failure due to acute pulmonary edema. Improved. Off BIPAP. Now on Oxygen by IA ESRD on dialysis. had urgent hemodialysis yesterday. I consulted and discussed with Dr. Ramirez, Nephrology. Patient states she did not miss dialysis. Acute pulmonary edema due to fluid overload, improving, less shortness of breath. Acute on chronic combined systolic and diastolic CHF. Lasix given in ED. Hypertensive emergency. BP much improved, now 137/68 . Resumed Norvasc, Imdur, Loporessor and Cozaar from home. She is off Nitro drip CAD. No chest pain.She is on Aspirin, Imdur, Lopressor,Cozaar Elevated Troponin. Further increase in Troponin. Will consult cardiology since she has CAD even though no chest pain. Obtain stat EKG. She is already on Aspirin, betablockers, Imdur s/p bilateral BKA DVT prophylaxis with heparin subcut. Full code status History Interval history: Feels better, nausea no chest pain Hospitalist Physical - Physical exam Narrative exam: GEN APPEARANCE : In mild acute respiratory distress, BIPAP mask on HEENT: Normocephalic, atraumatic NECK : supple, no JVD LUNGS: Bilateral crackles. No wheeze HEART: S1 and S2 regular, no murmurs, rubs or gallop, ABD: Soft, non tender, non distended, normal bowel sounds EXT: Bilateral below knee amputation, no clubbing, no cyanosis NEURO: Awake,alert, oriented x 3, no facial asymmetry,no focal signs Psych: Normal mood - Constitutional Vitals: Temp Pulse Resp BP Pulse Ox 98.8 F 84 18 137/68 100 09/03/17 08:15 09/03/17 08:15 09/03/17 08:15 09/03/17 08:15 09/03/17 08:15 Results - Labs CBC & Chem 7: 09/03/17 05:36 09/03/17 05:36 Labs: Laboratory Last Values WBC 8.3 K/mm3 (4.5-11.0) 09/03/17 05:36 RBC 3.04 M/mm3 (3.65-5.03) L 09/03/17 05:36 Hgb 8.9 gm/dl (10.1-14.3) L 09/03/17 05:36 Hct 27.4 % (30.3-42.9) L 09/03/17 05:36 MCV 90 fl (79-97) 09/03/17 05:36 MCH 29 pg (28-32) 09/03/17 05:36 MCHC 32 % (30-34) 09/03/17 05:36 RDW 19.6 % (13.2-15.2) H 09/03/17 05:36 Plt Count 226 K/mm3 (140-440) 09/03/17 05:36 Lymph % (Auto) 16.5 % (13.4-35.0) 09/02/17 05:28 [place] % (Auto) 4.5 % (0.0-7.3) 09/02/17 05:28 Eos % (Auto) 6.9 % (0.0-4.3) H 09/02/17 05:28 Baso % (Auto) 0.7 % (0.0-1.8) 09/02/17 05:28 Lymph # 2.0 K/mm3 (1.2-5.4) 09/02/17 05:28 [place] # 0.5 K/mm3 (0.0-0.8) 09/02/17 05:28 Eos # 0.8 K/mm3 (0.0-0.4) H 09/02/17 05:28 Baso # 0.1 K/mm3 (0.0-0.1) 09/02/17 05:28 Seg Neutrophils % 71.4 % (40.0-70.0) H 09/02/17 05:28 Seg Neutrophils # 8.7 K/mm3 (1.8-7.7) H 09/02/17 05:28 POC ABG pH 7.329 (7.35-7.45) L 09/02/17 05:29 POC ABG pCO2 41.5 (35-45) 09/02/17 05:29 POC ABG pO2 84 (80-105) 09/02/17 05:29 POC ABG HCO3 21.8 09/02/17 05:29 POC ABG Total CO2 23 09/02/17 05:29 POC ABG O2 Sat 95 09/02/17 05:29 POC ABG Base Excess -4 09/02/17 05:29 FiO2 100 % 09/02/17 05:29 Sodium 141 mmol/L (137-145) 09/03/17 05:36 Potassium 4.1 mmol/L (3.6-5.0) 09/03/17 05:36 Chloride 97.8 mmol/L (98-107) L 09/03/17 05:36 Carbon Dioxide 30 mmol/L (22-30) D 09/03/17 05:36 Anion Gap 17 mmol/L 09/03/17 05:36 BUN 33 mg/dL (7-17) H 09/03/17 05:36 Creatinine 5.0 mg/dL (0.7-1.2) H 09/03/17 05:36 Estimated GFR 11 ml/min 09/03/17 05:36 BUN/Creatinine Ratio 7 % 09/03/17 05:36 Glucose 50 mg/dL (65-100) L 09/03/17 05:36 POC Glucose 42 (70-105) L 09/03/17 06:40 Glucose 1/2 Hour 106 mg/dL (65-100) H 09/03/17 08:10 Calcium 8.6 mg/dL (8.4-10.2) 09/03/17 05:36 Total Bilirubin 0.40 mg/dL (0.1-1.2) 09/02/17 05:28 AST 54 units/L (5-40) H 09/02/17 05:28 ALT 45 units/L (7-56) 09/02/17 05:28 Alkaline Phosphatase 490 units/L (35-129) H 09/02/17 05:28 Troponin T 0.181 ng/mL (0.00-0.029) H* 09/02/17 05:28 NT-Pro-B Natriuret Pep > 66941 pg/mL (0-900) H 09/02/17 05:28 Total Protein 8.5 g/dL (6.3-8.2) H 09/02/17 05:28 Albumin 3.7 g/dL (3.9-5) L 09/02/17 05:28 Albumin/Globulin Ratio 0.8 % 09/02/17 05:28 Triglycerides 98 mg/dL (2-149) 09/02/17 05:28 Cholesterol 141 mg/dL (50-199) 09/02/17 05:28 LDL Cholesterol Direct 74 mg/dL (50-130) 09/02/17 05:28 HDL Cholesterol 48 mg/dL (40-59) 09/02/17 05:28 Cholesterol/HDL Ratio 2.93 % 09/02/17 05:28
[2017-09-03] MEDS ORDERED: BABY ASPIRIN PO SCH (10:00)
[2017-09-03 10:29] LABS: Creatine Kinase MB 2.2 ng/mL (0.0-4.0)
[2017-09-03] MEDS: PROTONIX PO SCH (11:53)
--- NOTE | 2017-09-03 11:55 | Progress Note ---
Assessment and Plan 1. Recurrent admission with volume overload with pumonary edema: Symptoms improved after hemodialysis yesterday. Unable to do much UF at outpatient hemodialysis due to low BP. Patient was instructed to stop taking Amlodipine. 2. ESRD: Continue HD three times a week. 3. Anemia: Epogen as needed. 4. Uncontrolled HTN: BP is better today. Stop taking Amlodipine. 5. H/o CAD. Subjective Date of service: 09/03/17 Interval history: Patient is feeling much better. Objective - Vital Signs Vital signs: Vital Signs - 12hr 09/03/17 09/03/17 09/03/17 00:45 03:47 08:15 Temperature 98.6 F 98.5 F 98.8 F Pulse Rate 82 87 84 Respiratory 18 17 18 Rate Blood Pressure 137/66 137/68 Blood Pressure 159/77 [Right] O2 Sat by Pulse 91 91 100 Oximetry - General Appearance General appearance: well-developed, appears stated age, other (no distress) EENT: ATNC, PERRL, hearing intact, vision intact Neck: supple Respiratory: Present: Clear to Ascultation Cardiology: regular, S1S2, no murmurs Gastrointestinal: normoactive bowel sounds, no tenderness, no distended Integumentary: no rash, warm and dry Neurologic: no focal deficit, no asterixis, alert and oriented x3 Musculoskeletal: other (no edema, bilateral BKA, left arm AVG) Psychiatric: mood/affect appropriate, cooperative - Lab 09/03/17 05:36 09/03/17 05:36 Most recent lab results Calcium 8.6 mg/dL (8.4-10.2) 09/03/17 05:36
[2017-09-03] MEDS: LYRICA PO SCH (12:36)
[2017-09-03] MEDS: IMDUR PO SCH (12:36)
[2017-09-03] MEDS: CARAFATE PO SCH ×2 (12:36→22:22)
[2017-09-03] MEDS: COZAAR PO SCH (12:37)
[2017-09-03] MEDS: LOPRESSOR PO SCH ×2 (12:37→22:22)
[2017-09-03] MEDS: MORPHINE IV PRN ×2 (14:54→20:03)
--- NOTE | 2017-09-03 14:56 | Consultation ---
History of Present Illness Consult date: 09/03/17 Requesting physician: ALON CARDOZA Consult reason: elevated troponin, other (CAD) History of present illness: The pt is a 52 year old female with a past medical history significant for CAD s /p AL with PCI x 2 per pt report, ICMP, hypertension, bilateral BKA, diabetes, end-stage disease on dialysis. She has been seen by our practice on a recent prior hospitalization but has not been complaint with OP follow up. She presented with c/o with shortness of breath since yesterday evening. She reports that she was lying in bed when she noted the onset of her SOB. Following arrival, pt's BP was noted to be 216/104. She reports that she has been compliant with HD but does not regularly take her medications. On evaluation this AM, pt denied any chest pain, palpitations, n/v, diaphoresis, dizziness or syncope. Pt was found to have elevated troponin and thus cardiology has been consulted. [facility] report from [place] 11/2016 showed patent LAD and RCA stents, ICMP, EF 35%. Echo done 07/29/2017 showed EF 35-40%, mild LVH, moderate global hypokinesis of the LV, restrictive diastolic filling pattern, mild TR, trace AR, trace NC. Past History Past Medical History: acute AL, CAD, diabetes, dialysis, ESRD, heart failure, hypertension Past Surgical History: Other (Bilateral BKA) Social history: full code. denies: smoking, alcohol abuse, IV drug use Family history: hypertension Medications and Allergies Allergies Allergy/AdvReac Type Severity Reaction Status Date / Time azithromycin [From Zithromax] Allergy Rash Verified 07/28/17 07:11 sulfamethoxazole Allergy Unknown Verified 07/28/17 04:12 [From Bactrim] trimethoprim [From Bactrim] Allergy Unknown Verified 07/28/17 04:12 Home Medications Medication Instructions Recorded Confirmed Last Taken Type ISOSORBIDE MONOnitrate [Imdur ER] 60 mg PO DAILY 07/28/17 09/03/17 09/02/17 History Losartan [Cozaar] 50 mg PO QDAY 07/28/17 09/03/17 09/02/17 History Metoprolol Tartrate 25 mg PO BID #60 tablet 08/04/17 09/03/17 09/02/17 Rx Pregabalin [Lyrica] 75 mg PO QDAY #30 capsule 08/04/17 09/03/17 09/02/17 Rx Sucralfate 1 gm PO BID #60 tablet 08/04/17 09/03/17 09/02/17 Rx oxyCODONE /ACETAMINOPHEN [Percocet 1 tab PO Q6H PRN #60 tablet 08/04/1709/02/17 Rx 5/325 mg] Esomeprazole Magnesium [NexIUM] 20 mg PO QAM 08/25/17 09/03/17 09/02/17 History Insulin Aspart [NovoLOG Flexpen] 12 units SQ TID 08/25/17 09/03/17 09/02/17 History Insulin Detemir [Levemir Flextouch] 15 units SUB-Q QHS 08/25/17 09/03/17 History Sevelamer Carbonate [Renvela] 2 tab PO TIDWM 08/25/17 09/03/17 09/02/17 History ALBUTEROL NEB's [Proventil 0.083% 2.5 mg IH Q3HRT PRN nebu 08/26/17 09/03/17 Rx NEBS] Aspirin [Aspirin BABY CHEW TAB] 81 mg PO QDAY tab.chew 08/26/17 09/03/17 Rx AtorvaSTATin [Lipitor] 40 mg PO QHS tablet 08/26/17 09/03/17 09/02/17 Rx Ondansetron [Zofran Odt] 4 mg PO Q8HR #30 tab.rapdis 08/26/17 09/03/17 09/02/17 Rx amLODIPine [Norvasc] 10 mg PO DAILY #30 tablet 08/26/17 09/03/17 09/02/17 Rx Active Meds: Active Medications Acetaminophen (Tylenol) 650 mg PO Q4H PRN PRN Reason: Pain MILD(1-3)/Fever >100.5/STEWART Albuterol (Proventil) 2.5 mg IH Q3HRT PRN PRN Reason: Shortness Of Breath Aspirin (Baby Aspirin) 81 mg PO QDAY [facility] Last Admin: 09/03/17 12:36 Dose: 81 mg Atorvastatin Calcium (Lipitor) 40 mg PO QHS [facility] Last Admin: 09/02/17 23:15 Dose: 40 mg Bisacodyl (Dulcolax) 10 mg NC QDAY PRN PRN Reason: Constipation unrelieved by MOM Heparin Sodium (Porcine) (Heparin) 5,000 unit SUB-Q Q12H [facility] Last Admin: 09/03/17 06:45 Dose: 5,000 unit Nitroglycerin/Dextrose (Tridil Drip 50mg/250ml) 50 mg in 250 mls @ 3 mls/hr IV TITR ONE; 10 MCG/MIN PRN Reason: Protocol Stop: 09/05/17 17:04 Last Titration: 09/02/17 08:44 Dose: 5 mcg/min, 1.5 mls/hr Sodium Chloride (Nacl 0.9%) 100 mls @ 999 mls/hr IV RAIN PRN PRN Reason: Hypotension Insulin Aspart (Novolog) 0 units SUB-Q ACHS [facility] PRN Reason: Protocol Last Admin: 09/03/17 11:57 Dose: Not Given Insulin Detemir (Levemir) 10 units SUB-Q QHS [facility] Last Admin: 09/02/17 23:28 Dose: 10 units Isosorbide Mononitrate (Imdur) 60 mg PO DAILY [facility] Last Admin: 09/03/17 12:36 Dose: 60 mg Losartan Potassium (Cozaar) 50 mg PO QDAY [facility] Last Admin: 09/03/17 12:37 Dose: Not Given Metoprolol Tartrate (Lopressor) 25 mg PO BID [facility] Last Admin: 09/03/17 12:37 Dose: Not Given Morphine Sulfate (Morphine) 2 mg IV Q4H PRN PRN Reason: Pain, Moderate (4-6) Last Admin: 09/03/17 14:54 Dose: 2 mg Ondansetron HCl (Zofran) 4 mg IV Q8H PRN PRN Reason: N/V unrelieved by Reglan Last Admin: 09/03/17 09:41 Dose: 4 mg Ondansetron HCl (Zofran Odt) 4 mg PO Q8HR [facility] Last Admin: 09/03/17 14:53 Dose: Not Given Oxycodone/Acetaminophen (Percocet 5/325) 1 tab PO Q6H PRN PRN Reason: Pain, Moderate (4-6) Pantoprazole Sodium (Protonix) 20 mg PO QAM [facility] Last Admin: 09/03/17 11:53 Dose: 20 mg Pregabalin (Lyrica) 75 mg PO QDAY [facility] Last Admin: 09/03/17 12:36 Dose: 75 mg Sevelamer Carbonate (Renvela) 1,600 mg PO TIDWM [facility] Last Admin: 09/03/17 11:53 Dose: 1,600 mg Sucralfate (Carafate) 1 gm PO BID [facility] Last Admin: 09/03/17 12:36 Dose: 1 gm Review of Systems Constitutional: no weight loss, no weight gain, no fever, no chills, no sweats Ears, nose, mouth and throat: no ear pain, no nose pain, no sinus pressure, no sinus pain Cardiovascular: shortness of breath, dyspnea on exertion, high blood pressure, no chest pain, no orthopnea, no lightheadedness Respiratory: shortness of breath, dyspnea on exertion, no cough, no congestion, no wheezing, no pain on inspiration Gastrointestinal: no abdominal pain, no nausea, no vomiting, no diarrhea, no constipation, no change in bowel habits Genitourinary Female: no pelvic pain, no flank pain, no dysuria, no urinary frequency, no urgency Musculoskeletal: no neck stiffness, no neck pain, no shooting arm pain, no arm numbness/tingling, no low back pain, no shooting leg pain, no leg numbness/ tingling, no redness of joints Integumentary: no rash, no pruritis, no redness, no sores, no wounds Neurological: no head injury, no paralysis, no weakness, no parathesias, no numbness, no tingling, no seizures, no syncope Psychiatric: no anxiety Endocrine: no cold intolerance, no heat intolerance Hematologic/Lymphatic: no easy bruising, no easy bleeding, no lymphadenopathy Allergic/Immunologic: no urticaria, no wheezing, no persistent infections Physical Examination Vital Signs Pulse Resp Pulse Ox 113 H 18 97 09/02/17 05:14 09/02/17 05:14 09/02/17 05:14 General appearance: no acute distress HEENT: Positive: PERRL, Normocephaly, Mucus Membranes Moist Neck: Positive: neck supple, trachea midline Cardiac: Positive: Reg Rate and Rhythm, S1/S2 Lungs: Positive: clear to auscultation Neuro: Positive: Grossly Intact, Cranial Nerve 2-12 Intact Abdomen: Positive: Soft. Negative: Tender Skin: Positive: Clear. Negative: Rash, Wound Musculoskeletal: No Fluid Collection, No Pain, Normal Range of Motion Extremities: Absent: edema Results 09/03/17 05:36 09/03/17 05:36 Cardiac Enzymes 09/03/17 Range/Units 08:10 CK-MB (CK-2) 2.2 (0.0-4.0) ng/mL CBC 09/03/17 Range/Units 05:36 WBC 8.3 (4.5-11.0) K/mm3 RBC 3.04 L (3.65-5.03) M/mm3 Hgb 8.9 L (10.1-14.3) gm/dl Hct 27.4 L (30.3-42.9) % Plt Count 226 (140-440) K/mm3 Comprehensive Metabolic Panel 09/03/17 Range/Units 05:36 Sodium 141 (137-145) mmol/L Potassium 4.1 (3.6-5.0) mmol/L Chloride 97.8 L (98-107) mmol/L Carbon Dioxide 30 D (22-30) mmol/L BUN 33 H (7-17) mg/dL Creatinine 5.0 H (0.7-1.2) mg/dL Glucose 50 L (65-100) mg/dL Calcium 8.6 (8.4-10.2) mg/dL - Imaging and Cardiology Echo: report reviewed (07/29/2017 showed EF 35-40%, mild LVH, moderate global hypokinesis of the LV, restrictive diastolic filling pattern, mild TR, trace AR , trace NC) Cardiac cath: report reviewed ([place] 11/2016 showed patent LAD and RCA stents, ICMP, EF 35%) EKG: report reviewed, image reviewed EKG interpretations - Telemetry EKG Rhythm: Sinus Rhythm - EKG Sinus rhythms and dysrhythmias: sinus rhythm Assessment and Plan Assessment: Acute combined systolic and diastolic heart failure Hypertensive urgency - improved CAD with PCI x 2 ICMP - EF 35-40% DM ESRD on HD s/p bilateral BKA Plan: Pt reports resolution of SOB since HD yesterday. Currently stable cardiac status. Cont present cardiac regimen. Nothing further to add from cardiac perspective. Pt may discharge from cardiology standpoint. Recommend follow up in our office with Arlen Angelo NP, within 3-5 days of hospital discharge ([phone]). Assessment and plan reviewed with pt at bedside. The patient has been seen in conjunction with Dr. Andrew Sampson who agrees with the assessment and plan of care.
[2017-09-03] MEDS ORDERED: BENADRYL PO PRN (15:31)
--- NOTE | 2017-09-03 15:32 | Event Note ---
Date: 09/03/17 Pt with c/o chest pain this afternoon. She describes the pain as a midsternal, nonexertional, nonradiating pressure which is intermittent. The pain is sometimes worse with movement and deep inspiration. The pain is currently resolved. Repeat EKG showed t-wave inversions in lateral leads, which also appear to be present on prior EKGs. Will repeat Juliet STAT. Given pt's history of coronary disease, will plan for lexiscan MPI stress test in AM pending pt remains clinically and hemodynamically stable overnight and Juliet remain flat. NPO after MN. Denise MORROW NP / DR. Andrew DO
[2017-09-03 16:41] LABS: Creatine Kinase MB 2.4 ng/mL (0.0-4.0)
--- NOTE | 2017-09-03 16:56 | Event Note ---
Date: 09/03/17 Troponin trending upwards 0.267. Will initiate Heparin drip.
[2017-09-03] MEDS ORDERED: HEPARIN/ 0.45% NACL-25,000 UNIT/500 ML 25,000 UNIT/500 ML BAG IV SCH (18:00)
[2017-09-03 18:40] LABS: Hematocrit 26.6 % (30.3-42.9); Hemoglobin 8.3 gm/dl (10.1-14.3)
[2017-09-03 18:43] LABS: INR 0.95 (0.87-1.13)
[2017-09-03 18:44] LABS: Partial Thromboplastin Time 36.1 Sec. (24.2-36.6)
[2017-09-03] MEDS: LEVEMIR SUB-Q SCH (22:47)
[2017-09-04] MEDS ORDERED: BENADRYL IV PRN (01:49)
[2017-09-04 04:48] LABS: Hematocrit 26.5 % (30.3-42.9); Hemoglobin 8.4 gm/dl (10.1-14.3); Mean Corpuscular HGB Conc 32 % (30-34); Mean Corpuscular Hemoglobin 29 pg (28-32); Mean Corpuscular Volume 91 fl (79-97); Platelet Count 215 K/mm3 (140-440); Red Blood Count 2.91 M/mm3 (3.65-5.03); Red Cell Distribution Width 19.7 % (13.2-15.2)
[2017-09-04 05:04] LABS: Calcium 8.8 mg/dL (8.4-10.2); Chloride 95.2 mmol/L (98-107); Potassium 4.5 mmol/L (3.6-5.0)
[2017-09-04] MEDS: ZOFRAN ODT PO SCH (05:09)
[2017-09-04] MEDS: HEPARIN SUB-Q SCH (05:09)
[2017-09-04] MEDS ORDERED: HEPARIN 10,000 UNITS/10 ML IV ONE (05:19)
[2017-09-04] MEDS: ZOFRAN IV PRN ×2 (06:14→12:09)
--- NOTE | 2017-09-04 07:32 | Progress Note ---
Assessment and Plan 1. Recurrent admission with volume overload with pumonary edema: Symptoms improved after hemodialysis. Fluid compliance encouraged. 2. ESRD: Continue HD three times a week. 3. Anemia: Epogen as needed. 4. Uncontrolled HTN: BP is better. Stop taking Amlodipine. 5. H/o CAD. Subjective Date of service: 09/04/17 Interval history: Patient is doing ok. Objective - Vital Signs Vital signs: Vital Signs - 12hr 09/04/17 09/04/17 00:00 04:36 Temperature 98.1 F 98.2 F Pulse Rate 82 83 Respiratory 18 18 Rate Blood Pressure 142/77 162/85 O2 Sat by Pulse 100 98 Oximetry - General Appearance General appearance: well-developed, appears stated age, other (no distress) EENT: ATNC, PERRL, hearing intact, vision intact Neck: supple Respiratory: Present: Clear to Ascultation Cardiology: regular, S1S2, no murmurs Gastrointestinal: normoactive bowel sounds, no tenderness, no distended Integumentary: no rash, warm and dry Neurologic: no focal deficit, no asterixis, alert and oriented x3 Musculoskeletal: other (no edema, bilateral BKA, left arm AVG) Psychiatric: mood/affect appropriate, cooperative - Lab 09/04/17 04:21 09/04/17 04:21 Most recent lab results Calcium 8.8 mg/dL (8.4-10.2) 09/04/17 04:21
[2017-09-04] MEDS: NOVOLOG SUB-Q SCH ×2 (08:26→11:58)
[2017-09-04] MEDS: RENVELA PO SCH ×2 (08:27→19:25)
[2017-09-04] MEDS ORDERED: LEXISCAN IV ONE ×2 (08:46→08:49)
[2017-09-04] MEDS ORDERED: ASPIRIN PO SCH (10:00)
[2017-09-04] MEDS: LOPRESSOR PO SCH (10:35)
[2017-09-04] MEDS ORDERED: NACL 0.9% 100 ML IV PRN (11:13)
--- NOTE | 2017-09-04 11:40 | Progress Note ---
Assessment and Plan Assessment: Acute combined systolic and diastolic heart failure - improved Chest pain, atypical - currently resolved; ECG with NAF Hypertensive urgency - improved Elevated troponins CAD with PCI x 2 ICMP - EF 35-40% DM ESRD on HD s/p bilateral BKA Plan: Pt s/p lexiscan MPI stress test this AM which was negative for ischemia, EF 50% . Currently stable cardiac status. Pt may discharge from cardiology standpoint. Recommend follow up in our office with Arlen Angelo NP, within 3-5 days of hospital discharge ([phone]). Assessment and plan reviewed with pt at bedside. The patient has been seen in conjunction with Dr. Garza who agrees with the assessment and plan of care. Subjective Date of service: 09/04/17 Principal diagnosis: chest pain Interval history: pt for stress test this AM. no current cardiac complaints. Objective Last Vital Signs Temp 98.3 F 09/04/17 08:00 Pulse 91 H 09/04/17 08:00 Resp 20 09/04/17 08:00 BP 168/83 09/04/17 08:00 Pulse Ox 97 09/04/17 08:00 - Physical Examination General: No Apparent Distress HEENT: Positive: PERRL, Normocephaly, Mucus Membranes Moist Neck: Positive: neck supple, trachea midline Cardiac: Positive: Reg Rate and Rhythm, S1/S2 Lungs: Positive: clear to auscultation Neuro: Positive: Grossly Intact, Cranial Nerve 2-12 Intact Abdomen: Positive: Soft. Negative: Tender Skin: Positive: Clear. Negative: Rash, Wound Musculoskeletal: No Fluid Collection, No Pain, Normal Range of Motion Extremities: Absent: edema - Labs and Meds Cardiac Enzymes 09/03/17 09/04/17 Range/Units 15:48 04:21 CK-MB (CK-2) 2.4 2.0 (0.0-4.0) ng/mL Coagulation 09/03/17 Range/Units 17:37 PT 13.2 (12.2-14.9) Sec. INR 0.95 (0.87-1.13) APTT 36.1 (24.2-36.6) Sec. CBC 09/03/17 09/04/17 Range/Units 17:37 04:21 WBC 7.0 (4.5-11.0) K/mm3 RBC 2.91 L (3.65-5.03) M/mm3 Hgb 8.3 L 8.4 L (10.1-14.3) gm/dl Hct 26.6 L 26.5 L (30.3-42.9) % Plt Count 220 215 (140-440) K/mm3 Comprehensive Metabolic Panel 09/04/17 Range/Units 04:21 Sodium 138 (137-145) mmol/L Potassium 4.5 (3.6-5.0) mmol/L Chloride 95.2 L (98-107) mmol/L Carbon Dioxide 27 (22-30) mmol/L BUN 41 H (7-17) mg/dL Creatinine 6.5 H (0.7-1.2) mg/dL Glucose 65 (65-100) mg/dL Calcium 8.8 (8.4-10.2) mg/dL - Imaging and Cardiology EKG: report reviewed, image reviewed Echo: report reviewed (07/29/2017 showed EF 35-40%, mild LVH, moderate global hypokinesis of the LV, restrictive diastolic filling pattern, mild TR, trace AR , trace [place]) Cardiac cath: report reviewed ([place] 11/2016 showed patent LAD and RCA stents, ICMP, EF 35%) - EKG Sinus rhythms and dysrhythmias: sinus rhythm
--- NOTE | 2017-09-04 11:43 | Discharge Summary ---
Providers - Providers Date of Admission: 09/02/17 07:26 Date of discharge: 09/04/17 Attending physician: ALON CARDOZA 09/02/17 07:29 Consult to Physician [CONS] Routine Consulting Provider: DANIELLE NEGRON Reason For Exam: ESRD need dialysis today Place consult to:: Dr. Negron Notified:: yes Phone number called:: [phone] Was contact made?: Yes If yes, spoke with:: Dr. Negron Time called:: 08:44 09/03/17 11:18 Consult to Physician [CONS] Routine Consulting Provider: VIOLA DO Reason For Exam: Elevbated troponin, CAD Place consult to:: In-house Notified:: yes Was contact made?: Yes If yes, spoke with:: Yulisa Farfan Time called:: 11:42 Primary care physician: MIRANDA APONTE MD Hospitalization Condition: Fair Disposition: DC-01 TO HOME OR SELFCARE Core Measure Documentation - Palliative Care Palliative Care/ Comfort Measures: Not Applicable Exam - Constitutional Vitals: Temp Pulse Resp BP Pulse Ox 98.3 F 91 H 20 168/83 97 09/04/17 08:00 09/04/17 08:00 09/04/17 08:00 09/04/17 08:00 09/04/17 08:00 Plan Activity: advance as tolerated Diet: low fat, low cholesterol, low salt, diabetic, renal Additional Instructions: 1.Follow up with PCP in 1 week. 2.Follow up with [facility] Angelo [facility] in 3-5 days. 3.Continue routine hemodialysis as scheduled. Follow up with: PRIMARY CARE, [Primary Care Provider] - 7 Days Prescriptions: diphenhydrAMINE [Benadryl CAP] 25 mg PO Q6H PRN #20 capsule PRN Reason: Itching
[2017-09-04] MEDS: MORPHINE IV PRN (12:09)
[2017-09-04] MEDS: LYRICA PO SCH (12:09)
[2017-09-04] MEDS: PROTONIX PO SCH (12:10)
[2017-09-04] MEDS ORDERED: NACL 0.9 (PRIMING MACHINE ONLY DIALYSIS) MC ONE (13:56)
[2017-09-04 18:38] VITALS: BP 179/84
[2017-09-04] MEDS: CARAFATE PO SCH (19:25)
[2017-09-04] MEDS: IMDUR PO SCH (19:33)
[2017-09-04] MEDS: COZAAR PO SCH (19:33)
== END 2017-09-04 20:51 | disposition home or self-care (01) | DRG 291 ==
LOC: ED 05:12 → 4A 07:26 → 3A 13:55
PROVIDERS: ADMIT Internal Medicine; ATTEND Internal Medicine
PROC: 4A033R1 Measurement of Arterial Saturation, Peripheral, Percutaneous Approach (ICD-10-PCS; principal; 2017-09-02)
PROC: 5A1D70Z Performance of Urinary Filtration, Intermittent, Less than 6 Hours Per Day (ICD-10-PCS; 2017-09-02)
PROC: 5A09357 Assistance with Respiratory Ventilation, Less than 24 Consecutive Hours, Continuous Positive Airway Pressure (ICD-10-PCS; 2017-09-02)
PROC: 5A1D70Z Performance of Urinary Filtration, Intermittent, Less than 6 Hours Per Day (ICD-10-PCS; 2017-09-04)
DX: I13.2 Hypertensive heart and chronic kidney disease with heart failure and with stage 5 chronic kidney disease, or end stage renal disease (principal); I50.43 Acute on chronic combined systolic (congestive) and diastolic (congestive) heart failure; J96.00 Acute respiratory failure, unspecified whether with hypoxia or hypercapnia; N18.6 End stage renal disease; J81.0 Acute pulmonary edema; I16.1 Hypertensive emergency; I25.10 Atherosclerotic heart disease of native coronary artery without angina pectoris; E11.22 Type 2 diabetes mellitus with diabetic chronic kidney disease; F17.200 Nicotine dependence, unspecified, uncomplicated; E87.70 Fluid overload, unspecified; D64.9 Anemia, unspecified; I25.5 Ischemic cardiomyopathy; Z99.2 Dependence on renal dialysis; Z79.4 Long term (current) use of insulin; Z79.899 Other long term (current) drug therapy; Z88.2 Allergy status to sulfonamides; I25.2 Old myocardial infarction; Z98.51 Tubal ligation status; Z89.512 Acquired absence of left leg below knee; Z89.511 Acquired absence of right leg below knee; Z82.49 Family history of ischemic heart disease and other diseases of the circulatory system
CPT/HCPCS: 36415; 71010; 78452; 80048; 80053; 80061; 82550; 82553; 82803; 82947; 82962; 83880; 84484; 85014; 85018; 85025; 85027; 85049; 85520; 85610; 85730; 93005; 93010; 93017; 94640; 94760; 96374; 96375; A9270-GY; A9502; J1200; J1644; J1815; J1818; J1940; J2060; J2270; J2405; J2785; J7030; Q0162

== ENCOUNTER 2018-02-18 16:20 | Inpatient (IN) | payer MEDICARE ==
--- NOTE | 2018-02-18 17:53 | Emergency Department Report ---
HPI - General Time Seen by Provider: 02/18/18 17:32 - HPI HPI: Room 5 The patient is a 52-year-old female presenting with a chief complaint abdomen shortness of breath. The patient states for one month she's had intermittent shortness of breath. The patient states she went to [facility] [place] earlier in the week was diagnosed with volume overload. Patient states she received dialysis yesterday and the day before. The patient states she felt better when she was discharged but last night the shortness of breath began returning. Today the patient states she got into a dispute with her landlord or shortness of breath worsened. Patient denies chest pain, nausea/vomiting or diaphoresis. Patient denies pleurisy or fever. Patient denies pain of any type Location: Lungs Duration: [See above] Quality: Shortness of breath Severity: Moderate Modifying factors: [see above] Context: [see above] Mode of transportation: Unknown ED Past Medical Hx - Past Medical History Hx Hypertension: Yes Hx Heart Attack/AMI: Yes Hx Congestive Heart Failure: Yes Hx Diabetes: Yes Hx Renal Disease: Yes (ESRD , , Fri) Additional medical history: Hypercholesterolemia, anxiety - Surgical History Additional Surgical History: Bilateral Tubal ligation. R. Chest permacath. Bilateral AKAs 2000. Left upper extremity fistula placement and removal secondary to infection. Left chest permacath - Family History Family history: no significant - Social History Smoking Status: Former Smoker (none 20 years) Substance Use Type: Marijuana - Medications Home Medications: Home Medications Medication Instructions Recorded Confirmed Last Taken Type ISOSORBIDE MONOnitrate [Imdur ER] 60 mg PO DAILY 07/28/17 11/15/17 09/02/17 History Losartan [Cozaar] 50 mg PO QDAY 07/28/17 11/15/17 09/02/17 History Pregabalin [Lyrica] 75 mg PO QDAY #30 capsule 08/04/17 11/15/17 09/02/17 Rx Sucralfate 1 gm PO BID #60 tablet 08/04/17 11/15/17 09/02/17 Rx oxyCODONE /ACETAMINOPHEN [Percocet 1 tab PO Q6H PRN #60 tablet 08/04/1709/02/17 Rx 5/325 mg] Insulin Detemir [Levemir Flextouch] 15 units SUB-Q QHS 08/25/17 11/15/17 History Sevelamer Carbonate [Renvela] 2 tab PO TIDWM 08/25/17 11/15/17 09/02/17 History ALBUTEROL NEB's [Proventil 0.083% 2.5 mg IH Q3HRT PRN nebu 08/26/17 11/15/17 Rx NEBS] AtorvaSTATin [Lipitor] 40 mg PO QHS tablet 08/26/17 11/15/17 09/02/17 Rx Ondansetron [Zofran ODT TAB] 4 mg PO Q8HR #30 tab.rapdis 08/26/17 11/15/1709/02 Rx Aspirin EC [Aspirin Enteric Coated 325 mg PO QDAY #30 tablet. 09/04/17 Unknown Rx TAB] diphenhydrAMINE [Benadryl CAP] 25 mg PO Q6H PRN #20 capsule 09/04/17 11/15/17 Unknown Rx B Complex 11/Folic/C/Biot/Zinc 1 each PO QDAY 11/15/17 11/15/17 Unknown History [Dialyvite with Zinc Tablet] Meloxicam 15 mg PO QDAY 11/15/17 11/15/17 Unknown History Esomeprazole Magnesium [NexIUM] 20 mg PO QAM #30 capsule. 11/16/17 Unknown Rx Metoprolol [Lopressor TAB] 25 mg PO BID #60 tablet 11/16/17 Unknown Rx ED Review of Systems ROS: Stated complaint: KURTIS Other details as noted in HPI Constitutional: denies: diaphoresis, fever Eyes: denies: eye pain ENT: denies: throat pain Respiratory: shortness of breath Cardiovascular: denies: chest pain Gastrointestinal: denies: abdominal pain, nausea, vomiting Genitourinary: denies: dysuria Musculoskeletal: denies: back pain Neurological: denies: headache Physical Exam - Physical Exam Physical Exam: GENERAL: The patient is well-developed well-nourished female sitting on stretcher leaning forward appearing to be in mild discomfort HEENT: Normocephalic. Atraumatic. Extraocular motions are intact. Patient has moist mucous membranes. NECK: Supple. Trachea midline CHEST/LUNGS: Bibasilar crackles. Occasional rhonchi HEART/CARDIOVASCULAR: Regular. There is no tachycardia. There is no gallop rub or murmur. ABDOMEN: Abdomen is soft, nontender. Patient has normal bowel sounds. There is no abdominal distention. SKIN: There is no rash. There is no diaphoresis. NEURO: The patient is awake, alert, and oriented. The patient is cooperative. The patient has normal speech MUSCULOSKELETAL: There is no evidence of acute injury. ED Course - Reevaluation(s) Reevaluation #1: 02/18/18 19:29 SPO2 100% on 4 L nasal cannula - Consultations Consultation #1: 02/18/18 19:27 Cna Hha asked to page Dr. Ramirez 02/18/18 19:[address] Ramirez. Will arrange dialysis ED Medical Decision Making - Lab Data Result diagrams: 02/18/18 18:26 02/18/18 18:26 - EKG Data -: EKG Interpreted by Me EKG shows normal: sinus rhythm Rate: tachycardia - EKG Data When compared to previous EKG there are: previous EKG unavailable Interpretation: nonspecific ST-T wave elías (T-wave inversion in lead V6) - Radiology Data Radiology results: image reviewed (chest x-ray) interpreted by me: Chest x-ray- bibasilar pulmonary edema - Differential Diagnosis CHF, volume overload, pneumonia, ACS Critical care attestation.: If time is entered above; I have spent that time in minutes in the direct care of this critically ill patient, excluding procedure time. ED Disposition Clinical Impression: Shortness of breath, Pulmonary edema Disposition: OP ADMIT IP TO THIS HOSP Is pt being admited?: Yes Condition: Fair Instructions: Pulmonary Edema (ED) Referrals: PRIMARY CARE, [Primary Care Provider] - 3-5 Days Time of Disposition: 19:30 (hospitalist notified (Dr Montes))
[2018-02-18] MEDS ORDERED: ATIVAN PO ONE (18:52)
[2018-02-18 18:54] LABS: Basophils % (Auto) 0.6 % (0.0-1.8); Eosinophils # (Auto) 0.4 K/mm3 (0.0-0.4); Eosinophils % (Auto) 4.8 % (0.0-4.3); Hematocrit 28.7 % (30.3-42.9); Hemoglobin 8.8 gm/dl (10.1-14.3); Lymphocytes # (Auto) 1.9 K/mm3 (1.2-5.4); Lymphocytes % (Auto) 23.6 % (13.4-35.0); Mean Corpuscular HGB Conc 31 % (30-34); Mean Corpuscular Hemoglobin 31 pg (28-32); Mean Corpuscular Volume 100 fl (79-97); Monocytes # (Auto) 0.9 K/mm3 (0.0-0.8); Monocytes % (Auto) 10.8 % (0.0-7.3); Platelet Count 142 K/mm3 (140-440); Red Blood Count 2.87 M/mm3 (3.65-5.03); Red Cell Distribution Width 19.1 % (13.2-15.2)
[2018-02-18 19:10] LABS: Partial Thromboplastin Time 30.2 Sec. (24.2-36.6)
[2018-02-18 19:18] LABS: Creatine Kinase MB 2.8 ng/mL (0.0-4.0)
[2018-02-18 19:20] LABS: Calcium 8.7 mg/dL (8.4-10.2)
--- NOTE | 2018-02-18 19:27 | XRay Report ---
FINAL REPORT PROCEDURE: XR CHEST 1V AP TECHNIQUE: Chest radiograph anteroposterior view. CPT 84857 HISTORY: shortness of breath COMPARISON: 09/02/2017 FINDINGS: Heart: Prominent cardiac silhouette Mediastinum/Vessels: Normal. Lungs/Pleural space: Bilateral patchy airspace opacities and probable small pleural effusions. No pneumothorax. Bony thorax: No acute osseous abnormality. Life support devices: Large-bore left central venous catheter tip is in the proximal right atrium. IMPRESSION: Findings may be related to pulmonary edema. Cannot exclude infectious process. Correlate clinically.
[2018-02-18] MEDS ORDERED: NACL 0.9% 100 ML IV PRN (19:47)
[2018-02-18] MEDS ORDERED: ZOFRAN IV PRN (20:09)
[2018-02-18] MEDS ORDERED: TYLENOL PO PRN (20:09)
[2018-02-18] MEDS ORDERED: MORPHINE IV PRN (20:09)
[2018-02-18] MEDS ORDERED: SODIUM CHLORIDE FLUSH SYRINGE 10 ML IV PRN (20:09)
[2018-02-18] MEDS ORDERED: PERCOCET 5/325 PO PRN (20:11)
[2018-02-18] MEDS ORDERED: PROVENTIL IH PRN (20:11)
[2018-02-18 20:17] LABS: Chol/HDL Ratio 1.93 %
[2018-02-18] MEDS ORDERED: LANTUS SUB-Q SCH (22:00)
[2018-02-18] MEDS ORDERED: INSULIN DETEMIR 15 UNIT SUB-Q SCH (22:00)
[2018-02-18] MEDS ORDERED: CARAFATE ONE (22:01)
[2018-02-18] MEDS ORDERED: ZOFRAN ODT ONE (22:01)
[2018-02-18] MEDS ORDERED: LOPRESSOR ONE (22:02)
[2018-02-18] MEDS: CARAFATE PO SCH (22:09)
[2018-02-18] MEDS: LOPRESSOR PO SCH (22:09)
[2018-02-18] MEDS: ZOFRAN ODT PO SCH (22:10)
[2018-02-18] MEDS: SODIUM CHLORIDE FLUSH SYRINGE 10 ML IV SCH (22:10)
--- NOTE | 2018-02-19 00:52 | Event Note ---
Date: 02/18/18 Please see dictated history and physical in the reports
[2018-02-19] MEDS: PERCOCET 5/325 PO PRN ×2 (00:55→06:51)
--- NOTE | 2018-02-19 01:24 | History and Physical Report ---
CHIEF COMPLAINT: Increasing shortness of breath for 2 days. HISTORY OF PRESENT ILLNESS: A 52-year-old -[place] female who comes in for increasing shortness of breath for last 2 days. The patient has been having intermittent shortness of breath for the last one month. The patient is on dialysis for end-stage renal disease. The patient was diagnosed with a volume overloaded . The patient states that she received dialysis yesterday. Shortness of breath at rest and orthopnea present. No chest pain. The patient had a dispute with landlord and her chest discomfort and shortness of breath worsened. No chest pain. PAST MEDICAL HISTORY: Significant for hypertension, end-stage renal disease, congestive heart failure, diabetes, hypercholesterolemia, anxiety. PAST SURGICAL HISTORY: Significant for bilateral above-knee amputation, left upper extremity fistula, right chest Perm-A-Cath, bilateral tubal ligation. FAMILY HISTORY: Significant for hypertension. SOCIAL HISTORY: Former smoker and marijuana on a regular basis. CURRENT MEDICATIONS: Insulin 50 units subcutaneous at bedtime, Lipitor 40 mg daily, meloxicam 15 mg daily, Nexium 20 mg daily, metoprolol 25 mg b.i.d. REVIEW OF SYSTEMS: Significant for shortness of breath at rest and orthopnea. Otherwise, 14-point review of systems negative. PHYSICAL EXAMINATION: GENERAL: A middle-aged female, looks older than her age. VITAL SIGNS: Blood pressure is 143/83, temperature is 98, pulse is 92, respirations are 18. HEENT: Unremarkable. Pupils are equal and reactive. NECK: Supple, no lymphadenopathy, no thyromegaly. LUNGS: Scattered rales bilaterally. CARDIOVASCULAR: S1, S2 heard. No gallop, no murmur, no rub. Apical impulse in left fifth intercostal space and midclavicular line. ABDOMEN: Soft and benign. No hepatosplenomegaly. No guarding, no rigidity. EXTREMITIES: Bilateral above knee amputations. SKIN: Normal. CENTRAL NERVOUS SYSTEM: Alert and oriented x 4, nonfocal exam. LABORATORY DATA: Significant for H and H of 8.8 and 28.7. Troponin 0.137. BUN and creatinine 37 and 5.1. Hemoglobin A1c 6.3. ASSESSMENT AND PLAN: 1. Volume overload secondary to end-stage renal disease. The patient needs ultrafiltration and hemodialysis. Emergent hemodialysis arranged. consulted. 2. Hypertension. Continue losartan and metoprolol. 3. Insulin-dependent diabetes. Continue insulin and coverage. 4. Peripheral neuropathy. Continue Lyrica. 5. Coronary artery disease. Continue isosorbide mononitrate. 6. Hyperlipidemia. Continue atorvastatin. 7. Peripheral neuropathy. Continue Lyrica. 8. Arthritis. Continue meloxicam. 9. Gastroesophageal reflux disease. Continue Nexium. 10. Deep venous thrombosis prophylaxis, heparin 5000 q.12h. JOB# [id number] VSM/NTS
[2018-02-19 05:47] LABS: Basophils % (Auto) 0.7 % (0.0-1.8); Eosinophils # (Auto) 0.3 K/mm3 (0.0-0.4); Eosinophils % (Auto) 4.6 % (0.0-4.3); Hematocrit 30.2 % (30.3-42.9); Hemoglobin 9.3 gm/dl (10.1-14.3); Lymphocytes # (Auto) 1.6 K/mm3 (1.2-5.4); Lymphocytes % (Auto) 22.1 % (13.4-35.0); Mean Corpuscular HGB Conc 31 % (30-34); Mean Corpuscular Hemoglobin 30 pg (28-32); Mean Corpuscular Volume 97 fl (79-97); Monocytes # (Auto) 0.8 K/mm3 (0.0-0.8); Monocytes % (Auto) 11.1 % (0.0-7.3); Platelet Count 158 K/mm3 (140-440); Red Blood Count 3.11 M/mm3 (3.65-5.03); Red Cell Distribution Width 18.1 % (13.2-15.2)
[2018-02-19 06:05] LABS: Albumin 3.6 g/dL (3.9-5); Calcium 9.2 mg/dL (8.4-10.2)
[2018-02-19] MEDS: ZOFRAN ODT PO SCH ×2 (06:58→14:00)
--- NOTE | 2018-02-19 08:37 | Consultation ---
History of Present Illness - Reason for Consult Consult date: 02/19/18 end stage renal disease, other (volume overload leading to respiratory distress) - History of Present Illness The patient is a 52 yo AAF, who is well known to our service, with medical history significant for Type 2 DM, HTN, CHF, CAD/SD s/p stent, Bilateral BKA, ESRD on hemodialysis (TTS schedule followed by ) and Anemia presented to the ED yesterday with complaints of shortness of breath. Patient was discharged from [facility] on 02/16/2018 and she was dialyzed on the day of discharge. She was also dialyzed yesterday at the outpatient center with removal of 1 Lt of fluid. Yesterday afternoon she became acutely short of breath and came to [facility]. She received urgent hemodialysis yesterday with removal of 3 Lts of fluid. Her symptoms are better today. She denies CP, cough , hemoptysis, fever, chills, dizziness or leg edema. Patient had similar admissions in the past. Past History Past Medical History: anemia, diabetes, dialysis, ESRD, heart failure, hypertension Medications and Allergies Allergies Allergy/AdvReac Type Severity Reaction Status Date / Time azithromycin [From Zithromax] Allergy Rash Verified 07/28/17 07:11 sulfamethoxazole Allergy Unknown Verified 07/28/17 04:12 [From Bactrim] trimethoprim [From Bactrim] Allergy Unknown Verified 07/28/17 04:12 Home Medications Medication Instructions Recorded Confirmed Last Taken Type ISOSORBIDE MONOnitrate [Imdur ER] 60 mg PO DAILY 07/28/17 11/15/17 09/02/17 History Losartan [Cozaar] 50 mg PO QDAY 07/28/17 11/15/17 09/02/17 History Pregabalin [Lyrica] 75 mg PO QDAY #30 capsule 08/04/17 11/15/17 09/02/17 Rx Sucralfate 1 gm PO BID #60 tablet 08/04/17 11/15/17 09/02/17 Rx oxyCODONE /ACETAMINOPHEN [Percocet 1 tab PO Q6H PRN #60 tablet 08/04/1709/02/17 Rx 5/325 mg] Insulin Detemir [Levemir Flextouch] 15 units SUB-Q QHS 1211/15/17 History Sevelamer Carbonate [Renvela] 2 tab PO TIDWM 08/25/17 11/15/17 09/02/17 History ALBUTEROL NEB's [Proventil 0.083% 2.5 mg IH Q3HRT PRN nebu 08/26/17 11/15/17 Rx NEBS] AtorvaSTATin [Lipitor] 40 mg PO QHS tablet 08/26/17 11/15/17 09/02/17 Rx Aspirin EC [Aspirin Enteric Coated 325 mg PO QDAY #30 tablet. 09/04/17 Unknown Rx TAB] diphenhydrAMINE [Benadryl CAP] 25 mg PO Q6H PRN #20 capsule 09/04/17 11/15/17 Unknown Rx B Complex 11/Folic/C/Biot/Zinc 1 each PO QDAY 11/15/17 11/15/17 Unknown History [Dialyvite with Zinc Tablet] Meloxicam 15 mg PO QDAY 11/15/17 11/15/17 Unknown History Esomeprazole Magnesium [NexIUM] 20 mg PO QAM #30 capsule. 11/16/17 Unknown Rx Metoprolol [Lopressor TAB] 25 mg PO BID #60 tablet 11/16/17 Unknown Rx Active Meds: Active Medications Acetaminophen (Tylenol) 650 mg PO Q4H PRN PRN Reason: Pain MILD(1-3)/Fever >100.5/STEWART Albuterol (Proventil) 2.5 mg IH Q3HRT PRN PRN Reason: Shortness Of Breath Aspirin (Ecotrin) 325 mg PO QDAY [facility] Atorvastatin Calcium (Lipitor) 40 mg PO QHS [facility] Last Admin: 02/18/18 22:09 Dose: 40 mg Sodium Chloride (Nacl 0.9%) 100 mls @ 999 mls/hr IV RAIN PRN PRN Reason: Hypotension Insulin Glargine (Lantus) 15 units SUB-Q QHS [facility] Last Admin: 02/18/18 22:09 Dose: 15 units Insulin Human Lispro (Humalog) 0 unit SUB-Q ACHS [facility]; Protocol Isosorbide Mononitrate (Imdur) 60 mg PO DAILY [facility] Losartan Potassium (Cozaar) 50 mg PO QDAY [facility] Meloxicam (Mobic) 15 mg PO QDAY [facility] Metoprolol Tartrate (Lopressor) 25 mg PO BID [facility] Last Admin: 02/18/18 22:09 Dose: 25 mg Morphine Sulfate (Morphine) 2 mg IV Q4H PRN PRN Reason: Pain, Moderate (4-6) Ondansetron HCl (Zofran) 4 mg IV Q8H PRN PRN Reason: Nausea And Vomiting Ondansetron HCl (Zofran Odt) 4 mg PO Q8HR [facility] Last Admin: 02/19/18 06:58 Dose: Not Given Oxycodone/Acetaminophen (Percocet 5/325) 1 tab PO Q6H PRN PRN Reason: Pain, Moderate (4-6) Last Admin: 02/19/18 06:51 Dose: 1 tab Pantoprazole Sodium (Protonix) 20 mg PO QAM [facility] Pregabalin (Lyrica) 75 mg PO QDAY [facility] Sevelamer Carbonate (Renvela) 1,600 mg PO AC [facility] Sodium Chloride (Sodium Chloride Flush Syringe 10 Ml) 10 ml IV BID [facility] Last Admin: 02/18/18 22:10 Dose: 10 ml Sodium Chloride (Sodium Chloride Flush Syringe 10 Ml) 10 ml IV PRN PRN PRN Reason: LINE FLUSH Sucralfate (Carafate) 1 gm PO BID [facility] Last Admin: 02/18/18 22:09 Dose: 1 gm Review of Systems Constitutional: weight loss, no weight gain, no fever, no chills, no anorexia, no weakness Ears, nose, mouth and throat: no epistaxis Breasts: deferred Cardiovascular: orthopnea, shortness of breath, dyspnea on exertion, high blood pressure, decreased exercise tolerance, no chest pain, no edema, no syncope, no lightheadedness, no leg edema Respiratory: shortness of breath, dyspnea on exertion, no cough, no hemoptysis Gastrointestinal: no abdominal pain, no nausea, no vomiting, no diarrhea, no jaundice Genitourinary Female: no hematuria Integumentary: no rash, no wounds, no jaundice Neurological: no paralysis, no aphasia, no change in speech, no change in mentation, no confusion Psychiatric: anxiety (per hemodialysis staff patient is usually nervous / anxious while on hemodialysis) Exam - Vital Signs Vital signs: Vital Signs Resp Pulse Ox 16 100 02/18/18 17:30 02/18/18 17:30 - General Appearance General appearance: well-developed, appears stated age, other (no distress, left IJ tunnel catheter) EENT: ATNC, PERRL, hearing intact, vision intact Neck: Present: neck supple, trachea midline Respiratory: Rales (bibasal) Heart: regular, S1S2 Gastrointestinal: Present: normoactive bowel sounds. Absent: tenderness Integumentary: no rash, warm and dry Neurologic: no focal deficit, no asterixis, alert and oriented x3 Musculoskeletal: Present: other (bilateral BKA) Psychiatric: mood/affect appropriate, cooperative Results - Lab Results 02/19/18 05:10 02/19/18 05:10 Most recent lab results Calcium 9.2 mg/dL (8.4-10.2) 02/19/18 05:10 Assessment and Plan 1. Volume overload: Symptoms are better after urgent hemodialysis yesterday. Plan to do HD today with removal of 2-3 Lts as tolerated. D/w outpatient hemodialysis staff to adjust DW and remove adequate volume as tolerated. 2. ESRD: Continue hemodialysis as planned. 3. Hypertension: BP is better today. 4. Anemia: Hb is better today. 5. Infected left arm AVG: S/p removal of AVG. Patient is on Vancomycin three times a week. Will give a dose of Vancomycin today. D/w patient to follow with Vascular.
[2018-02-19] MEDS ORDERED: NACL 0.9% 100 ML IV PRN (09:00)
[2018-02-19] MEDS: RENVELA PO SCH ×2 (09:13→11:30)
[2018-02-19] MEDS: HumaLOG SUB-Q SCH ×2 (09:18→11:30)
[2018-02-19] MEDS ORDERED: MOBIC PO SCH (10:00)
[2018-02-19] MEDS ORDERED: COZAAR PO SCH (10:00)
[2018-02-19] MEDS ORDERED: NON-FORMULARY (Esomeprazole Magnesium [Nexium] 20 MG) PO SCH (10:00)
[2018-02-19] MEDS ORDERED: ECOTRIN PO SCH (10:00)
[2018-02-19] MEDS: SODIUM CHLORIDE FLUSH SYRINGE 10 ML IV SCH (10:00)
[2018-02-19] MEDS ORDERED: LYRICA PO SCH (10:00)
[2018-02-19] MEDS ORDERED: IMDUR PO SCH (10:00)
[2018-02-19] MEDS ORDERED: PROTONIX PO SCH (10:00)
[2018-02-19] MEDS ORDERED: NACL 0.9 (PRIMING MACHINE ONLY DIALYSIS) MC ONE (11:32)
--- NOTE | 2018-02-19 12:13 | Discharge Summary ---
Providers - Providers Date of Admission: 02/18/18 20:09 Date of discharge: 02/19/18 Attending physician: ALON CARDOZA 02/18/18 Consult to Case Management [CONS] Routine Services Needed at Discharge: Home Health Services Notified:: COPY GIVEN TO 02/18/18 18:42 Consult to Physician [CONS] Urgent Comment: Consulting Provider: DANIELLE NEGRON Physician Instructions: Reason For Exam: end-stage renal disease/shortness of breath Primary care physician: DOWELER Hospitalization Condition: Fair Disposition: DC-01 TO HOME OR SELFCARE Core Measure Documentation - Palliative Care Palliative Care/ Comfort Measures: Not Applicable - Core Measures Any of the following diagnoses?: none Exam - Constitutional Vitals: Temp Pulse Resp BP Pulse Ox 97.9 F 75 18 146/82 100 02/19/18 09:45 02/19/18 11:00 02/19/18 09:45 02/19/18 11:00 02/19/18 07:24 Plan Activity: no restrictions Diet: low fat, low cholesterol, low salt, renal Additional Instructions: 1.Follow up with PCP in 1 week. 2.Continue routine hemoduialysis as scheduled. Follow up with: PRIMARY CAREMD [Primary Care Provider] - 3-5 Days
[2018-02-19 13:37] VITALS: BP 124/71
[2018-02-19] MEDS: LOPRESSOR PO SCH (13:46)
[2018-02-19] MEDS: CARAFATE PO SCH (13:57)
[2018-02-19] MEDS ORDERED: VANCOMYCIN IV SCH (14:45)
[2018-02-19] MEDS ORDERED: VANCOMYCIN/NS 1 GM/250 ML 1 GM/250 ML BAG IV ONE (16:00)
== END 2018-02-19 15:04 | disposition home or self-care (01) | DRG 640 ==
LOC: ED 16:20 → 3A 20:09
PROVIDERS: ADMIT Internal Medicine; ATTEND Internal Medicine
PROC: 5A1D70Z Performance of Urinary Filtration, Intermittent, Less than 6 Hours Per Day (ICD-10-PCS; principal; 2018-02-18)
PROC: 5A1D70Z Performance of Urinary Filtration, Intermittent, Less than 6 Hours Per Day (ICD-10-PCS; 2018-02-19)
DX: E87.70 Fluid overload, unspecified (principal); N18.6 End stage renal disease; I13.2 Hypertensive heart and chronic kidney disease with heart failure and with stage 5 chronic kidney disease, or end stage renal disease; I25.2 Old myocardial infarction; E11.22 Type 2 diabetes mellitus with diabetic chronic kidney disease; I50.9 Heart failure, unspecified; E78.00 Pure hypercholesterolemia, unspecified; F41.9 Anxiety disorder, unspecified; I25.10 Atherosclerotic heart disease of native coronary artery without angina pectoris; D64.9 Anemia, unspecified; Z79.4 Long term (current) use of insulin; Z99.2 Dependence on renal dialysis; Z98.51 Tubal ligation status; Z87.891 Personal history of nicotine dependence; Z95.5 Presence of coronary angioplasty implant and graft; Z89.512 Acquired absence of left leg below knee; Z89.511 Acquired absence of right leg below knee
CPT/HCPCS: 36415; 71045; 80048; 80053; 80061; 82550; 82553; 82962; 83036; 84484; 85025; 85610; 85730; 93005; 93010; 96374; 99285; A9270-GY; J1815; J3370; J7030; Q0162

== ENCOUNTER 2018-04-19 05:38 | Inpatient (IN) | payer MEDICARE ==
[2018-04-19] MEDS ORDERED: ASPIRIN PO ONE (06:05)
[2018-04-19] MEDS ORDERED: PERCOCET 5/325 PO ONE ×2 (07:30→11:08)
--- NOTE | 2018-04-19 07:35 | Emergency Department Report ---
ED General Adult HPI - General Chief complaint: Back Pain/Injury Stated complaint: BACK PAIN,SOB Time Seen by Provider: 04/19/18 06:34 Source: patient, EMS Mode of arrival: Stretcher Limitations: Physical Limitation - History of Present Illness Initial comments: Chief complaint: Pain exacerbation, back, left arm, chest 52-year-old woman presents with complaint of exacerbation of pain across her lower back and left arm, and some in her chest, since running out of her oxycodone yesterday. Patient has a history significant for chronic morbidities , including end-stage renal disease secondary to insulin-dependent diabetes mellitus, 3 times weekly dialysis, as well as severe peripheral vascular disease with bilateral [id number] amputations, chronic back pain, hypertension, hyperlipidemia, heart failure, anxiety disorder. She receives dialysis 3 times weekly, latest was yesterday, but only for 2 hours, and reports that no significant fluid was drawn, and she has some mild shortness of breath and chest pain as well. She has had previous episodes of volume overload , requiring emergent dialysis, but latest hospitalization in February 2018 was negative for signs of significant heart damage, although patient does have a chronic troponin elevation. Patient describes discomfort as pain across her lower back, 12-24 hours in duration which is deep throbbing and aching, without radiation, worse since she has run out of her medicine yesterday, now has been 10 out of 10, but she also complains of pain in her left upper extremity, primarily in the hand and forearm , which she reports as a result of an injury suffered from prior hospital treatment, questionably medication versus injury, which has not been reinjured, which is now also aching as well. Chest discomfort is generalized, across her anterior chest, aching as well, moderate in intensity, 6-7 out of 10, with mild shortness of breath, but with no diaphoresis, no radiation, no nausea or vomiting. Severity scale (0 -10): 10 - Related Data Home Medications Medication Instructions Recorded Confirmed Last Taken ISOSORBIDE MONOnitrate [Imdur ER] 60 mg PO DAILY 07/28/17 11/15/17 09/02/17 Losartan [Cozaar] 50 mg PO QDAY 07/28/17 11/15/17 09/02/17 Insulin Detemir [Levemir Flextouch] 15 units SUB-Q QHS 12/08/0111/15/17 Sevelamer Carbonate [Renvela] 2 tab PO TIDWM 08/25/17 11/15/17 09/02/17 B Complex 11/Folic/C/Biot/Zinc 1 each PO QDAY 11/15/17 11/15/17 Unknown [Dialyvite with Zinc Tablet] Meloxicam 15 mg PO QDAY 11/15/17 11/15/17 Unknown Previous Rx's Medication Instructions Recorded Last Taken Type Pregabalin [Lyrica] 75 mg PO QDAY #30 capsule 08/04/17 09/02/17 Rx Sucralfate 1 gm PO BID #60 tablet 08/04/17 09/02/17 Rx oxyCODONE /ACETAMINOPHEN [Percocet 1 tab PO Q6H PRN #60 tablet 08/04/17 Rx 5/325 mg] ALBUTEROL NEB's [Proventil 0.083% 2.5 mg IH Q3HRT PRN nebu 08/26/17 09/02/17 Rx NEBS] AtorvaSTATin [Lipitor] 40 mg PO QHS tablet 08/26/17 09/02/17 Rx Aspirin EC [Aspirin Enteric Coated 325 mg PO QDAY #30 tablet. 09/04/17 Unknown Rx TAB] diphenhydrAMINE [Benadryl CAP] 25 mg PO Q6H PRN #20 capsule 09/04/17 Unknown Rx Esomeprazole Magnesium [NexIUM] 20 mg PO QAM #30 capsule. 11/16/17 Unknown Rx Metoprolol [Lopressor TAB] 25 mg PO BID #60 tablet 11/16/17 Unknown Rx Allergies Allergy/AdvReac Type Severity Reaction Status Date / Time azithromycin [From Zithromax] Allergy Rash Verified 07/28/17 07:11 sulfamethoxazole Allergy Unknown Verified 07/28/17 04:12 [From Bactrim] trimethoprim [From Bactrim] Allergy Unknown Verified 07/28/17 04:12 ED Review of Systems ROS: Stated complaint: BACK PAIN,SOB Other details as noted in HPI Comment: All other systems reviewed and negative Constitutional: denies: chills, diaphoresis, fever ENT: denies: throat pain Respiratory: shortness of breath, SOB at rest Cardiovascular: chest pain. denies: palpitations, edema Endocrine: no symptoms reported Gastrointestinal: denies: abdominal pain, nausea, vomiting Musculoskeletal: back pain (bilateral, aching, across soft tissues, no bony tenderness), other (left upper extremity pain and hand wrist and forearm, generalized, aching) Neurological: denies: numbness, paresthesias Psychiatric: anxiety ED Past Medical Hx - Past Medical History Previous Medical History?: Yes Hx Hypertension: Yes Hx Heart Attack/AMI: Yes Hx Congestive Heart Failure: Yes Hx Diabetes: Yes Hx Renal Disease: Yes (ESRD Tues, Thurs, Sat) Hx Headaches / Migraines: Yes Additional medical history: Hypercholesterolemia, anxiety - Surgical History Past Surgical History?: Yes Additional Surgical History: Bilateral Tubal ligation. R. Chest permacath. Bilateral AKAs 2000. Left upper extremity fistula placement and removal secondary to infection. Left chest permacath - Social History Smoking Status: Never Smoker Substance Use Type: Marijuana - Medications Home Medications: Home Medications Medication Instructions Recorded Confirmed Last Taken Type ISOSORBIDE MONOnitrate [Imdur ER] 60 mg PO DAILY 07/28/17 11/15/17 09/02/17 History Losartan [Cozaar] 50 mg PO QDAY 07/28/17 11/15/17 09/02/17 History Pregabalin [Lyrica] 75 mg PO QDAY #30 capsule 08/04/17 11/15/17 09/02/17 Rx Sucralfate 1 gm PO BID #60 tablet 08/04/17 11/15/17 09/02/17 Rx oxyCODONE /ACETAMINOPHEN [Percocet 1 tab PO Q6H PRN #60 tablet 08/04/1709/02/17 Rx 5/325 mg] Insulin Detemir [Levemir Flextouch] 15 units SUB-Q QHS 08/25/17 11/15/17 History Sevelamer Carbonate [Renvela] 2 tab PO TIDWM 08/25/17 11/15/17 09/02/17 History ALBUTEROL NEB's [Proventil 0.083% 2.5 mg IH Q3HRT PRN nebu 08/26/17 11/15/17 Rx NEBS] AtorvaSTATin [Lipitor] 40 mg PO QHS tablet 12/12/17 03/03/18 12/19/17 Rx Aspirin EC [Aspirin Enteric Coated 325 mg PO QDAY #30 tablet. 09/04/17 Unknown Rx TAB] diphenhydrAMINE [Benadryl CAP] 25 mg PO Q6H PRN #20 capsule 09/04/17 11/15/17 Unknown Rx B Complex 11/Folic/C/Biot/Zinc 1 each PO QDAY 11/15/17 11/15/17 Unknown History [Dialyvite with Zinc Tablet] Meloxicam 15 mg PO QDAY 11/15/17 11/15/17 Unknown History Esomeprazole Magnesium [NexIUM] 20 mg PO QAM #30 capsule. 11/16/17 Unknown Rx Metoprolol [Lopressor TAB] 25 mg PO BID #60 tablet 11/16/17 Unknown Rx ED Physical Exam - General Limitations: Physical Limitation General appearance: alert, in distress - Head Head exam: Present: atraumatic, normocephalic - Eye Eye exam: Present: PERRL - ENT ENT exam: Present: mucous membranes moist - Neck Neck exam: Present: normal inspection, full ROM. Absent: tenderness - Respiratory Respiratory exam: Present: rales (faint, posterior,), chest wall tenderness ( bilateral costochondral, and soft tissue muscular), other (left chest port, intact). Absent: respiratory distress, wheezes, rhonchi, stridor - Cardiovascular Cardiovascular Exam: Present: regular rate - GI/Abdominal GI/Abdominal exam: Present: soft, normal bowel sounds. Absent: tenderness - Rectal Rectal exam: Present: deferred - Extremities Exam Extremities exam: Present: other (bilateral BKA A, scars both medial thighs) - Back Exam Back exam: Present: tenderness (bilateral, lumbosacral myofascial tissue), paraspinal tenderness. Absent: CVA tenderness (R), CVA tenderness (L), vertebral tenderness - Neurological Exam Neurological exam: Present: alert, oriented X3, CN II-XII intact. Absent: motor sensory deficit - Psychiatric Psychiatric exam: Present: agitated, anxious - Skin Skin exam: Present: warm, dry, intact ED Course Vital Signs 04/19/18 06:05 Temperature 37.7 C H Pulse Rate 105 H Respiratory 14 Rate Blood Pressure 129/57 [Right] O2 Sat by Pulse 95 Oximetry Critical care attestation.: If time is entered above; I have spent that time in minutes in the direct care of this critically ill patient, excluding procedure time. ED Disposition Condition: Stable Referrals: PRIMARY CARE, [Primary Care Provider] - 3-5 Days
[2018-04-19 07:50] LABS: Hematocrit 26.7 % (30.3-42.9); Hemoglobin 8.4 gm/dl (10.1-14.3); Mean Corpuscular HGB Conc 32 % (30-34); Mean Corpuscular Hemoglobin 30 pg (28-32); Mean Corpuscular Volume 95 fl (79-97); Platelet Count 104 K/mm3 (140-440); Red Blood Count 2.82 M/mm3 (3.65-5.03)
[2018-04-19 08:12] LABS: BUN/Creatinine Ratio 6; Blood Urea Nitrogen 53 mg/dL (7-17); Calcium 8.6 mg/dL (8.4-10.2); Hemolysis Index 9
[2018-04-19 08:32] LABS: Chol/HDL Ratio 15.33 %; HDL Cholesterol 6 mg/dL (40-59); LDL Cholesterol,Direct 12 mg/dL (50-130)
[2018-04-19 09:30] LABS: Basophils % (Manual) 0 % (0.0-1.8); Eosinophils % (Manual) 0 % (0.0-4.3); Monocytes % (Manual) 5 % (0.0-7.3); Total Cells Counted 100
[2018-04-19 09:31] LABS: Anisocytosis 1+
[2018-04-19 09:32] LABS: Hypochromasia Few
--- NOTE | 2018-04-19 12:42 | Cat Scan Report ---
FINAL REPORT EXAM: CT ABDOMEN PELVIS WO CON HISTORY: abd, back pain; ESRD COMPARISON: None. TECHNIQUE: Multiple contiguous axial images were obtained from the lung bases to the pubic symphysis without administration of IV contrast. Reformatted sagittal and coronal images were available for review. FINDINGS: Lung bases: Normal. Visualized heart and mediastinum: Mild cardiomegaly. Scattered calcifications of the coronary arteries. Liver: Normal noncontrast appearance. Spleen: Normal noncontrast appearance. Pancreas: Normal noncontrast appearance. Gallbladder and Biliary Tree: No calcified gallstones. No biliary ductal dilatation. Adrenal glands: Normal. Kidneys: No hydronephrosis. Diffuse renal vascular calcifications. 5 millimeter low-density lesion in the interpolar region of the right kidney that may represent a cyst. Bladder: Decompressed Pelvic organs: Multiple calcified fibroids within the uterus. Bowel: No focal wall thickening. No evidence of obstruction. Normal appendix without surrounding inflammatory change. Peritoneum: Small amount of free fluid in the pelvis. No free air. Vasculature: Extensive atherosclerotic calcifications of the abdominal aorta. No evidence of aneurysm. Normal appearance of the portal venous system and the inferior vena cava. Bones and soft tissues: No suspicious osseous lesions. No acute fracture or dislocation. There edema of the soft tissues. IMPRESSION: 1. Mild cardiomegaly. Scattered calcifications of the coronary arteries. 2. No acute intra-abdominal pathology. No evidence of obstruction. 3. Small amount of free fluid in the pelvis. 4. Edema of the soft tissues.
--- NOTE | 2018-04-19 13:49 | XRay Report ---
FINAL REPORT EXAM: XR CXR CLINICAL INDICATIONS: chest pain, difficulty breathing FINDINGS: Single frontal view of the chest was acquired and compared to the prior examination of February 18. The heart is normal in size. There is a left-sided catheter with its tip in the right atrium. On the prior exam there is a right basilar infiltrate which has resolved. The pulmonary vasculature is within normal limits. IMPRESSION: NO CONSOLIDATIVE INFILTRATE
[2018-04-19] MEDS ORDERED: ZOSYN/NS 3.375GM/50ML 3.375 GM/50 ML BAG IV SCH (14:00)
[2018-04-19] MEDS ORDERED: ZOFRAN IV ONE (14:58)
[2018-04-19] MEDS ORDERED: MORPHINE IV ONE ×2 (14:58→23:19)
--- NOTE | 2018-04-19 15:06 | History and Physical Report ---
History of Present Illness Chief complaint: Im hurting all over History of present illness: 52 YO Female with ESRD on HD(T,R,Sa), [place], CHF, Migraine STEWART, DM, Anxiety, HTN presents to ED for evaluation. Pt states that she has experienced shortness of breath as well as pain all over her body for the past 3 weeks with worsening symptoms over the past 1 day. Pt states that she skipped dialysis on , and underwent partial dialysis yesterday and was not able to complete dialysis to pain. Pt states that her pain is more pronounced in her lower back. Pt denies fever, chills, CP, Palpitations, Trauma, falls, hematuria, productive cough, or recent ill contacts. Pt seen and evaluated in ED and found to have ESRD, Sepsis, Acidosis, as well as CHF. Pt admitted to telemetry. Past History Past Medical History: acute [place], diabetes, ESRD, heart failure, hypertension, migraines Past Surgical History: Other (Bilateral BKA, Permacath placement, AV Fistula) Social history: , lives with family. denies: smoking, alcohol abuse, prescription drug abuse Family history: diabetes, hypertension Medications and Allergies Allergies Allergy/AdvReac Type Severity Reaction Status Date / Time azithromycin [From Zithromax] Allergy Rash Verified 07/28/17 07:11 sulfamethoxazole Allergy Unknown Verified 07/28/17 04:12 [From Bactrim] trimethoprim [From Bactrim] Allergy Unknown Verified 07/28/17 04:12 Home Medications Medication Instructions Recorded Confirmed Last Taken Type ISOSORBIDE MONOnitrate [Imdur ER] 60 mg PO DAILY 07/28/17 11/15/17 09/02/17 History Losartan [Cozaar] 50 mg PO QDAY 07/28/17 11/15/17 09/02/17 History Pregabalin [Lyrica] 75 mg PO QDAY #30 capsule 08/04/17 11/15/17 09/02/17 Rx Sucralfate 1 gm PO BID #60 tablet 08/04/17 11/15/17 09/02/17 Rx oxyCODONE /ACETAMINOPHEN [Percocet 1 tab PO Q6H PRN #60 tablet 08/04/1709/02/17 Rx 5/325 mg] Insulin Detemir [Levemir Flextouch] 15 units SUB-Q QHS 08/25/17 11/15/17 History Sevelamer Carbonate [Renvela] 2 tab PO TIDWM 08/25/17 11/15/17 09/02/17 History ALBUTEROL NEB's [Proventil 0.083% 2.5 mg IH Q3HRT PRN nebu 08/26/17 11/15/17 Rx NEBS] AtorvaSTATin [Lipitor] 40 mg PO QHS tablet 08/26/17 11/15/17 09/02/17 Rx Aspirin EC [Aspirin Enteric Coated 325 mg PO QDAY #30 tablet. 09/04/17 Unknown Rx TAB] diphenhydrAMINE [Benadryl CAP] 25 mg PO Q6H PRN #20 capsule 09/04/17 11/15/17 Unknown Rx B Complex 11/Folic/C/Biot/Zinc 1 each PO QDAY 11/15/17 11/15/17 Unknown History [Dialyvite with Zinc Tablet] Meloxicam 15 mg PO QDAY 11/15/17 11/15/17 Unknown History Esomeprazole Magnesium [NexIUM] 20 mg PO QAM #30 capsule. 11/16/17 Unknown Rx Metoprolol [Lopressor TAB] 25 mg PO BID #60 tablet 11/16/17 Unknown Rx Active Meds: Active Medications Piperacillin Sod/Tazobactam Sod (Zosyn/Ns 2.25 Gm/50ml) 2.25 gm in 50 mls @ 100 mls/hr IV Q8HR [place] Review of Systems Constitutional: chronic pain, no weight loss, no weight gain, no fever, no chills Ears, nose, mouth and throat: no ear pain, no ear discharge, no tinnitis, no decreased hearing, no nose pain Breasts: no change in shape, no swelling, no mass Cardiovascular: shortness of breath, no chest pain, no orthopnea, no palpitations, no rapid/irregular heart beat Respiratory: no cough, no cough with sputum, no excessive sputum, no hemoptysis Gastrointestinal: no nausea, no vomiting, no diarrhea, no constipation Genitourinary Female: no pelvic pain, no flank pain, no menorrhagia, no dysuria , no urinary frequency, no urgency Rectal: no pain, no incontinence, no bleeding Musculoskeletal: no neck stiffness, no neck pain, no shooting arm pain, no arm numbness/tingling, no low back pain Integumentary: no rash, no pruritis, no redness, no sores, no wounds, no jaundice Neurological: no transient paralysis, no paralysis, no weakness, no parathesias , no numbness, no tingling, no seizures Psychiatric: no anxiety, no memory loss, no change in sleep habits, no sleep disturbances, no insomnia, no hypersomnia, no change in appetite Endocrine: no cold intolerance, no heat intolerance, no polyphagia, no excessive thirst, no polydipsia, no polyuria Hematologic/Lymphatic: no easy bruising, no easy bleeding, no lymphadenopathy, no lymphedema Allergic/Immunologic: no urticaria, no allergic rhinitis, no wheezing, no persistent infections, no anaphylaxis, no angioedema Exam - Constitutional Vitals: Temp Pulse Resp BP Pulse Ox 98.0 F 86 14 132/66 100 04/19/18 14:57 04/19/18 14:57 04/19/18 14:57 04/19/18 14:57 04/19/18 14:57 General appearance: Present: mild distress - EENT Eyes: Present: PERRL ENT: hearing intact, clear oral mucosa - Neck Neck: Present: supple, normal ROM - Respiratory Respiratory effort: normal Respiratory: bilateral: diminished, rhonchi - Cardiovascular Heart Sounds: Present: S1 & S2. Absent: rub, click - Extremities Extremities: pulses symmetrical, No edema Peripheral Pulses: within normal limits - Abdominal General gastrointestinal: Present: soft, non-tender, non-distended, normal bowel sounds Female genitourinary: Present: normal - Integumentary Integumentary: Present: clear, dry, clammy, decreased turgor - Musculoskeletal Musculoskeletal: generalized weakness - Psychiatric Psychiatric: appropriate mood/affect, intact judgment & insight - Neurologic Neurologic: CNII-XII intact, moves all extremities Results - Labs CBC & Chem 7: 04/19/18 07:12 04/19/18 07:12 Labs: Abnormal lab results 04/19/18 04/19/18 04/19/18 Range/Units 07:12 07:12 09:12 WBC 29.7 H (4.5-11.0) K/mm3 RBC 2.82 L (3.65-5.03) M/mm3 Hgb 8.4 L (10.1-14.3) gm/dl Hct 26.7 L (30.3-42.9) % RDW 18.0 H (13.2-15.2) % Plt Count 104 L (140-440) K/mm3 Seg Neuts % (Manual) 82 H (40.0-70.0) % Lymphocytes % (Manual) 3.0 L (13.4-35.0) % Seg Neutrophils # Man 24.3 H (1.8-7.7) K/mm3 Lymphocytes # (Manual) 0.9 L (1.2-5.4) K/mm3 Monocytes # (Manual) 1.4 H (0.0-0.8) K/mm3 Sodium 134 L (137-145) mmol/L Chloride 91.4 L (98-107) mmol/L Carbon Dioxide 19 L (22-30) mmol/L BUN 53 H (7-17) mg/dL Creatinine 9.2 H (0.7-1.2) mg/dL Glucose 213 H (65-100) mg/dL Troponin T 0.286 H* 0.277 H* (0.00-0.029) ng/mL NT-Pro-B Natriuret Pep > 50832 H (0-900) pg/mL Triglycerides 292 H (2-149) mg/dL LDL Cholesterol Direct 12 L (50-130) mg/dL HDL Cholesterol 6 L (40-59) mg/dL 04/19/18 Range/Units 12:04 WBC (4.5-11.0) K/mm3 RBC (3.65-5.03) M/mm3 Hgb (10.1-14.3) gm/dl Hct (30.3-42.9) % RDW (13.2-15.2) % Plt Count (140-440) K/mm3 Seg Neuts % (Manual) (40.0-70.0) % Lymphocytes % (Manual) (13.4-35.0) % Seg Neutrophils # Man (1.8-7.7) K/mm3 Lymphocytes # (Manual) (1.2-5.4) K/mm3 Monocytes # (Manual) (0.0-0.8) K/mm3 Sodium (137-145) mmol/L Chloride (98-107) mmol/L Carbon Dioxide (22-30) mmol/L BUN (7-17) mg/dL Creatinine (0.7-1.2) mg/dL Glucose (65-100) mg/dL Troponin T 0.257 H* (0.00-0.029) ng/mL NT-Pro-B Natriuret Pep (0-900) pg/mL Triglycerides (2-149) mg/dL LDL Cholesterol Direct (50-130) mg/dL HDL Cholesterol (40-59) mg/dL Assessment and Plan - Patient Problems (1) Sepsis Current Visit: Yes Status: Acute Qualifiers: Sepsis type: sepsis due to unspecified organism Qualified Code(s): A41.9 - Sepsis, unspecified organism Plan to address problem: IV antibiotics, IVF resuscitation, blood cultures, serial lactic acid level, urinlaysis, chest x ray, (2) Acidosis Current Visit: Yes Status: Acute Plan to address problem: treat sepsis, serial bmp, supportive care, dialysis as per renal team (3) Acute exacerbation of CHF (congestive heart failure) Current Visit: No Status: Acute Qualifiers: Heart failure type: systolic Qualified Code(s): I50.23 - Acute on chronic systolic (congestive) heart failure Plan to address problem: Admit to telemetry, strict I/O, daily weight, monitor uop q shift, dialysis as per renal team (4) ESRD (end stage renal disease) Current Visit: No Status: Acute Plan to address problem: Nephrology consulted in ED, dialysis as per renal team. monitor uop q shift, avoid nephrotoxic agents. (5) Diabetes mellitus with hyperglycemia Current Visit: No Status: Chronic Qualifiers: Diabetes mellitus type: type 2 Plan to address problem: ADA diet, insulin, accu check (6) Hypertension Current Visit: No Status: Chronic Qualifiers: Hypertension type: essential hypertension Qualified Code(s): I10 - Essential (primary) hypertension Plan to address problem: monitor bp q shift, continue medical management, (7) Back pain Current Visit: Yes Status: Acute Qualifiers: Back pain location: thoracic back pain Plan to address problem: Thoracolumbar X ray, consider MR pending results of plain x ray. (8) DVT prophylaxis Current Visit: No Status: Acute Plan to address problem: SCD to ble while in bed.
[2018-04-19] MEDS: ZOSYN/NS 2.25 GM/50ML 2.25 GM/50 ML BAG IV SCH ×2 (15:23→23:08)
[2018-04-19] MEDS ORDERED: PROVENTIL IH PRN ×2 (15:41→15:46)
[2018-04-19] MEDS ORDERED: NACL 0.9% 1000 ML IV ONE (15:41)
[2018-04-19] MEDS ORDERED: TYLENOL PO PRN (15:41)
[2018-04-19] MEDS ORDERED: VANCOMYCIN 1,000 MG in NACL 0.9% 500 ML 500 ML IV ONE (15:41)
[2018-04-19] MEDS ORDERED: PERCOCET 5/325 PO PRN (15:46)
[2018-04-19] MEDS ORDERED: ZOSYN/NS 2.25 GM/50ML 2.25 GM/50 ML BAG IV SCH (17:00)
[2018-04-19] MEDS ORDERED: NON-FORMULARY (Sevelamer Carbonate [Renvela] 2 TAB) PO SCH (17:00)
[2018-04-19] MEDS: RENVELA PO SCH (18:27)
--- NOTE | 2018-04-19 19:35 | XRay Report ---
FINAL REPORT EXAM: XR SPINE THORACOLUMBAR 2V HISTORY: thoracic and lumbar pain TECHNIQUE: Two views thoracic spine from upper thoracic through L3-L4 PRIORS: None. FINDINGS: The vertebral bodies demonstrate normal height and alignment. The disk spaces are within normal limits. The posterior elements appear intact. Perivertebral soft tissues are unremarkable. Central venous catheter noted with tip overlying the cavoatrial junction. IMPRESSION: Dialysis catheter noted No acute abnormality identified visualized portion of the spine
[2018-04-19] MEDS ORDERED: VANCOMYCIN/NS 1 GM/250 ML 1 GM/250 ML BAG IV ONE (20:00)
[2018-04-19] MEDS ORDERED: INSULIN DETEMIR 15 UNIT SUB-Q SCH (22:00)
[2018-04-19] MEDS ORDERED: ZOSYN/NS 4.5GM/100ML 4.5 GM/100 ML VIAL IV SCH (22:00)
[2018-04-19] MEDS ORDERED: LANTUS SUB-Q SCH (22:00)
[2018-04-19] MEDS: CARAFATE PO SCH (22:26)
[2018-04-19] MEDS: SODIUM CHLORIDE FLUSH SYRINGE 10 ML IV SCH (22:27)
[2018-04-19] MEDS: LOPRESSOR PO SCH (22:28)
[2018-04-19] MEDS: LANTUS SUB-Q SCH (22:34)
[2018-04-19] MEDS: ZOFRAN IV PRN (23:26)
[2018-04-19] MEDS: BENADRYL PO PRN (23:27)
[2018-04-20] MEDS: ZOSYN/NS 2.25 GM/50ML 2.25 GM/50 ML BAG IV SCH ×3 (05:25→21:44)
[2018-04-20 05:41] LABS: Hematocrit 27.3 % (30.3-42.9); Hemoglobin 8.6 gm/dl (10.1-14.3); Mean Corpuscular HGB Conc 31 % (30-34); Mean Corpuscular Hemoglobin 30 pg (28-32); Mean Corpuscular Volume 95 fl (79-97); Red Blood Count 2.88 M/mm3 (3.65-5.03)
[2018-04-20 05:45] LABS: Platelet Count 82 K/mm3 (140-440)
[2018-04-20 06:05] LABS: Calcium 8.5 mg/dL (8.4-10.2)
[2018-04-20 06:39] LABS: Band Neutrophils # (Manual) 2.4 K/mm3; Basophils % (Manual) 0 % (0.0-1.8); Eosinophils % (Manual) 0 % (0.0-4.3); Monocytes % (Manual) 4.5 % (0.0-7.3); Total Cells Counted 200
[2018-04-20 06:40] LABS: Platelet Estimate Appears Decreased; Target Cells 1+
[2018-04-20] MEDS: HumuLIN R SUB-Q SCH ×4 (08:15→21:55)
[2018-04-20] MEDS: RENVELA PO SCH ×3 (08:43→17:42)
[2018-04-20] MEDS ORDERED: NACL 0.9% 100 ML IV PRN (09:46)
--- NOTE | 2018-04-20 09:46 | Consultation ---
History of Present Illness - Reason for Consult Consult date: 04/20/18 end stage renal disease, hyperkalemia - History of Present Illness The patient is a 52 YO Female, who is well known to our service, with history significant for DM-2, HTN, ESRD on HD (TTS), Anemia, CAD, CHF, Migraine, Anxiety and s/p bilateral BKA who presented to ED for evaluation of shortness of breath and generalized bodyache for the past 3 weeks. Pt skipped dialysis on and underwent dialysis on friday but not able to complete dialysis due to pain. Pt denies fever, chills, N, V, D, CP, productive cough, or recent ill contacts. Pt noted to have multiple metabolic abnormalities. Past History Past Medical History: acute [place], diabetes, ESRD, heart failure, hypertension, migraines Past Surgical History: Other (Bilateral BKA, Permacath placement, AV Fistula) Social history: , lives with family. denies: smoking, alcohol abuse, prescription drug abuse Family history: diabetes, hypertension Medications and Allergies Allergies Allergy/AdvReac Type Severity Reaction Status Date / Time azithromycin [From Zithromax] Allergy Rash Verified 07/28/17 07:11 sulfamethoxazole Allergy Unknown Verified 07/28/17 04:12 [From Bactrim] trimethoprim [From Bactrim] Allergy Unknown Verified 07/28/17 04:12 Home Medications Medication Instructions Recorded Confirmed Last Taken Type ISOSORBIDE MONOnitrate [Imdur ER] 60 mg PO DAILY 07/28/17 04/20/18 09/02/17 History Losartan [Cozaar] 50 mg PO QDAY 07/28/17 04/20/18 09/02/17 History Pregabalin [Lyrica] 75 mg PO QDAY #30 capsule 08/04/17 04/20/18 09/02/17 Rx Sucralfate 1 gm PO BID #60 tablet 08/04/17 04/20/18 09/02/17 Rx oxyCODONE /ACETAMINOPHEN [Percocet 1 tab PO Q6H PRN #60 tablet 08/04/1709/02/17 Rx 5/325 mg] Insulin Detemir [Levemir Flextouch] 15 units SUB-Q QHS 08/25/17 04/20/18 History Sevelamer Carbonate [Renvela] 2 tab PO TIDWM 08/25/17 04/20/18 09/02/17 History ALBUTEROL NEB's [Proventil 0.083% 2.5 mg IH Q3HRT PRN nebu 08/26/17 04/20/18 Rx NEBS] AtorvaSTATin [Lipitor] 40 mg PO QHS tablet 08/26/17 04/20/18 09/02/17 Rx Aspirin EC [Aspirin Enteric Coated 325 mg PO QDAY #30 tablet. 09/04/17 Unknown Rx TAB] diphenhydrAMINE [Benadryl CAP] 25 mg PO Q6H PRN #20 capsule 09/04/17 04/20/18 Unknown Rx B Complex 11/Folic/C/Biot/Zinc 1 each PO QDAY 11/15/17 04/20/18 Unknown History [Dialyvite with Zinc Tablet] Meloxicam 15 mg PO QDAY 11/15/17 04/20/18 Unknown History Esomeprazole Magnesium [NexIUM] 20 mg PO QAM #30 capsule. 11/16/17 04/20/18 Unknown Rx Metoprolol [Lopressor TAB] 25 mg PO BID #60 tablet 11/16/17 04/20/18 Unknown Rx Active Meds: Active Medications Acetaminophen (Tylenol) 650 mg PO Q4H PRN PRN Reason: Pain MILD(1-3)/Fever >100.5/STEWART Albuterol (Proventil) 2.5 mg IH Q3HRT PRN PRN Reason: Shortness Of Breath Aspirin (Ecotrin) 325 mg PO QDAY [facility] Atorvastatin Calcium (Lipitor) 40 mg PO QHS [facility] Last Admin: 04/19/18 22:26 Dose: 40 mg Diphenhydramine HCl (Benadryl) 25 mg PO Q6H PRN PRN Reason: Itching Last Admin: 04/19/18 23:27 Dose: 25 mg Piperacillin Sod/Tazobactam Sod (Zosyn/Ns 2.25 Gm/50ml) 2.25 gm in 50 mls @ 100 mls/hr IV Q8HR [facility] Last Admin: 04/20/18 05:25 Dose: 100 mls/hr Insulin Glargine (Lantus) 15 units SUB-Q QHS [facility] Last Admin: 04/19/18 22:34 Dose: 15 units Insulin Human Regular (Humulin R) 0 units SUB-Q ACHS [facility]; Protocol Isosorbide Mononitrate (Imdur) 60 mg PO DAILY [facility] Losartan Potassium (Cozaar) 50 mg PO QDAY [facility] Meloxicam (Mobic) 15 mg PO QDAY [facility] Metoprolol Tartrate (Lopressor) 25 mg PO BID [facility] Last Admin: 04/19/18 22:28 Dose: 25 mg Multivit/Ca Carb/B Cmplx/FA/Prenat (Renal Caps) 1 cap PO QDAY [facility] Ondansetron HCl (Zofran) 4 mg IV Q8H PRN PRN Reason: Nausea And Vomiting Last Admin: 04/19/18 23:26 Dose: 4 mg Oxycodone/Acetaminophen (Percocet 5/325) 2 tab PO Q6H PRN PRN Reason: Pain, Moderate (4-6) Pantoprazole Sodium (Protonix) 20 mg PO QAM [facility] Pregabalin (Lyrica) 75 mg PO QDAY [facility] Sevelamer Carbonate (Renvela) 1,600 mg PO TIDWM [facility] Last Admin: 04/19/18 18:27 Dose: 1,600 mg Sodium Chloride (Sodium Chloride Flush Syringe 10 Ml) 10 ml IV BID [facility] Last Admin: 04/19/18 22:27 Dose: 10 ml Sodium Chloride (Sodium Chloride Flush Syringe 10 Ml) 10 ml IV PRN PRN PRN Reason: LINE FLUSH Sucralfate (Carafate) 1 gm PO BID [facility] Last Admin: 04/19/18 22:26 Dose: 1 gm Review of Systems Constitutional: no weight loss, no weight gain, no fever, no chills, no weakness Breasts: deferred Cardiovascular: edema, shortness of breath, dyspnea on exertion, high blood pressure, no chest pain, no syncope, no lightheadedness Respiratory: shortness of breath, dyspnea on exertion, no cough Gastrointestinal: no abdominal pain, no nausea, no vomiting, no jaundice Genitourinary Female: no dysuria, no hematuria Rectal: no bleeding Musculoskeletal: other (generalized bodyache) Integumentary: no rash Neurological: no paralysis, no change in mentation, no confusion Exam - Vital Signs Vital signs: Vital Signs Temp Pulse Resp BP Pulse Ox 99.8 F H 105 H 14 129/57 95 04/19/18 06:05 04/19/18 06:05 04/19/18 06:05 04/19/18 06:05 04/19/18 06:05 - General Appearance General appearance: well-developed, appears stated age, other (no distress, left IJ tunnel catheter) EENT: ATNC, PERRL, hearing intact, other (facial plethora noted) Neck: Present: neck supple, trachea midline Respiratory: Rales (bibasal) Heart: regular, S1S2, no murmurs Gastrointestinal: Present: normoactive bowel sounds. Absent: tenderness Integumentary: no rash, warm and dry Neurologic: no focal deficit, no asterixis, alert and oriented x3 Musculoskeletal: Present: other (bilateral BKA) Psychiatric: cooperative Results - Lab Results 04/20/18 04:19 04/20/18 04:19 Most recent lab results Calcium 8.5 mg/dL (8.4-10.2) 04/20/18 04:19 Assessment and Plan 1. ESRD: Patient received hemodialysis today. [facility] HD three times a week. 2. Volume overload: 2 Lts of UF today with hemodialysis. Need additional UF tomorrow if BP is better. 3. Hypotension: Stop Losartan. 4. Sepsis. 5. Anemia. 6. DM-2.
[2018-04-20] MEDS: LYRICA PO SCH ×2 (10:00→16:36)
[2018-04-20] MEDS ORDERED: COZAAR PO SCH (10:00)
[2018-04-20] MEDS: CARAFATE PO SCH ×3 (10:00→21:45)
[2018-04-20] MEDS: ECOTRIN PO SCH ×2 (10:00→16:36)
[2018-04-20] MEDS: MOBIC PO SCH ×2 (10:00→16:37)
[2018-04-20] MEDS ORDERED: NON-FORMULARY (Meloxicam [Meloxicam] 15 MG) PO SCH (10:00)
[2018-04-20] MEDS: PROTONIX PO SCH ×2 (10:00→16:37)
[2018-04-20] MEDS: Renal Caps PO SCH ×2 (10:00→16:38)
[2018-04-20] MEDS: LOPRESSOR PO SCH ×2 (10:00→22:01)
[2018-04-20] MEDS ORDERED: NON-FORMULARY (Esomeprazole Magnesium [Nexium] 20 MG) PO SCH (10:00)
[2018-04-20] MEDS ORDERED: NON-FORMULARY (B Complex 11/Folic/C/Biot/Zinc [Dialyvite With Zinc Tablet] 1 EACH) PO SCH (10:00)
[2018-04-20] MEDS: IMDUR PO SCH ×2 (10:00→16:36)
--- NOTE | 2018-04-20 12:28 | Progress Note ---
Assessment and Plan Assessment and plan: 53-year-old -Citizen Of [place] female with past medical history significant for end-stage renal disease on hemodialysis, [place], and lateral BKA presented to the emergency department with complaints of generalized pain. Patient didn't finish her 's dialysis because of pain. In the ED patient has elevated WBC count, elevated troponin which is chronic Generalized pain worse in the lower back - symptomatic management - CT abdomen and pelvis normal, CT thoracolumbar area normal Sepsis lieky from UTI, U/A ordered not collected, patient is making urine - On IV Zosyn ESRD on hemodialysis Hyperkalemia - Nephrology is following History of [place] - No specific complaints about chest pain - Patient has elevated troponin, but troponin was elevated all the time in her previous admissions Diabetes mellitus with hyperglycemia - Sliding scale insulin, Lantus daily at bedtime - ADA diet, Accu-Chek - Adjust insulin as needed Bilateral BKA DVT prophylaxis - On heparin Disposition - Continue inpatient care History Interval history: Patient was seen and evaluated this morning, patient is complaining generalized pain worst on the lower back. Hospitalist Physical - Physical exam Narrative exam: Not in cardiopulmonary distress. The patient appeared well nourished and normally developed. Vital signs as documented. Head exam is unremarkable. No scleral icterus . Neck is without jugular venous distension, thyromegaly, or carotid bruits. Lungs are clear to auscultation. Cardiac exam reveals regular rate and Rhythm. Abdominal exam reveals normal bowel sounds. Extremities bilateral BKA. TRAVEL AGENT: Alert and oriented 3. - Constitutional Vitals: Temp Pulse Resp BP Pulse Ox 99.9 F H 99 H 16 138/61 98 04/20/18 08:53 04/20/18 08:53 04/20/18 08:53 04/20/18 08:53 04/20/18 08:53 General appearance: Present: mild distress Results - Labs CBC & Chem 7: 04/20/18 04:19 04/20/18 04:19 Labs: Laboratory Last Values WBC 30.5 K/mm3 (4.5-11.0) H 04/20/18 04:19 RBC 2.88 M/mm3 (3.65-5.03) L 04/20/18 04:19 Hgb 8.6 gm/dl (10.1-14.3) L 04/20/18 04:19 Hct 27.3 % (30.3-42.9) L 04/20/18 04:19 MCV 95 fl (79-97) 04/20/18 04:19 MCH 30 pg (28-32) 04/20/18 04:19 MCHC 31 % (30-34) 04/20/18 04:19 RDW 18.0 % (13.2-15.2) H 04/20/18 04:19 Plt Count 82 K/mm3 (140-440) L 04/20/18 04:19 Add Manual Diff Complete 04/20/18 04:19 Total Counted 200 04/20/18 04:19 Seg Neutrophils % Slasher 04/20/18 04:19 Seg Neuts % (Manual) 86.5 % (40.0-70.0) H 04/20/18 04:19 Band Neutrophils % 8.0 % 04/20/18 04:19 Lymphocytes % (Manual) 1.0 % (13.4-35.0) L 04/20/18 04:19 Reactive Lymphs % (Man) 0 % 04/20/18 04:19 Monocytes % (Manual) 4.5 % (0.0-7.3) 04/20/18 04:19 Eosinophils % (Manual) 0 % (0.0-4.3) 04/20/18 04:19 Basophils % (Manual) 0 % (0.0-1.8) 04/20/18 04:19 Metamyelocytes % 0 % 04/20/18 04:19 Myelocytes % 0 % 04/20/18 04:19 Promyelocytes % 0 % 04/20/18 04:19 Blast Cells % 0 % 04/20/18 04:19 Nucleated RBC % Not Reportable 04/20/18 04:19 Seg Neutrophils # Man 26.4 K/mm3 (1.8-7.7) H 04/20/18 04:19 Band Neutrophils # 2.4 K/mm3 04/20/18 04:19 Lymphocytes # (Manual) 0.3 K/mm3 (1.2-5.4) L 04/20/18 04:19 Abs React Lymphs (Man) 0.0 K/mm3 04/20/18 04:19 Monocytes # (Manual) 1.4 K/mm3 (0.0-0.8) H 04/20/18 04:19 Eosinophils # (Manual) 0.0 K/mm3 (0.0-0.4) 04/20/18 04:19 Basophils # (Manual) 0.0 K/mm3 (0.0-0.1) 04/20/18 04:19 Metamyelocytes # 0.0 K/mm3 04/20/18 04:19 Myelocytes # 0.0 K/mm3 04/20/18 04:19 Promyelocytes # 0.0 K/mm3 04/20/18 04:19 Blast Cells # 0.0 K/mm3 04/20/18 04:19 WBC Morphology Not Reportable 04/20/18 04:19 Hypersegmented Neuts Not Reportable 04/20/18 04:19 Hyposegmented Neuts Not Reportable 04/20/18 04:19 Hypogranular Neuts Not Reportable 04/20/18 04:19 Smudge Cells Not Reportable 04/20/18 04:19 Toxic Granulation Not Reportable 04/20/18 04:19 Toxic Vacuolation Not Reportable 04/20/18 04:19 Dohle Bodies Not Reportable 04/20/18 04:19 Pelger-Huet Anomaly Not Reportable 04/20/18 04:19 Riccardo Rods Not Reportable 04/20/18 04:19 Platelet Estimate Appears decreased 04/20/18 04:19 Clumped Platelets Not Reportable 04/20/18 04:19 Plt Clumps, EDTA Not Reportable 04/20/18 04:19 Large Platelets Not Reportable 04/20/18 04:19 Giant Platelets Not Reportable 04/20/18 04:19 Platelet Satelliting Not Reportable 04/20/18 04:19 Plt Morphology Comment Not Reportable 04/20/18 04:19 RBC Morphology Not Reportable 04/20/18 04:19 Dimorphic RBCs Not Reportable 04/20/18 04:19 Polychromasia Not Reportable 04/20/18 04:19 Hypochromasia Not Reportable 04/20/18 04:19 Poikilocytosis Not Reportable 04/20/18 04:19 Anisocytosis Not Reportable 04/20/18 04:19 Microcytosis Not Reportable 04/20/18 04:19 Macrocytosis Not Reportable 04/20/18 04:19 Spherocytes Not Reportable 04/20/18 04:19 Pappenheimer Bodies Not Reportable 04/20/18 04:19 Sickle Cells Not Reportable 04/20/18 04:19 Target Cells 1+ 04/20/18 04:19 Tear Drop Cells Not Reportable 04/20/18 04:19 Ovalocytes Not Reportable 04/20/18 04:19 Helmet Cells Not Reportable 04/20/18 04:19 Nick-Potter Bodies Not Reportable 04/20/18 04:19 Thornton Rings Not Reportable 04/20/18 04:19 Bharath Cells Not Reportable 04/20/18 04:19 Bite Cells Not Reportable 04/20/18 04:19 Crenated Cell Not Reportable 04/20/18 04:19 Elliptocytes Not Reportable 04/20/18 04:19 Acanthocytes (Spur) Not Reportable 04/20/18 04:19 Rouleaux Not Reportable 04/20/18 04:19 Hemoglobin C Crystals Not Reportable 04/20/18 04:19 Schistocytes Not Reportable 04/20/18 04:19 Malaria parasites Not Reportable 04/20/18 04:19 Paul Bodies Not Reportable 04/20/18 04:19 Hem Pathologist Commnt No 04/20/18 04:19 Sodium 129 mmol/L (137-145) L 04/20/18 04:19 Potassium 5.3 mmol/L (3.6-5.0) H 04/20/18 04:19 Chloride 89.9 mmol/L (98-107) L 04/20/18 04:19 Carbon Dioxide 19 mmol/L (22-30) L 04/20/18 04:19 Anion Gap 25 mmol/L 04/20/18 04:19 BUN 64 mg/dL (7-17) H 04/20/18 04:19 Creatinine 10.1 mg/dL (0.7-1.2) H 04/20/18 04:19 Estimated GFR 5 ml/min 04/20/18 04:19 BUN/Creatinine Ratio 6 % 04/20/18 04:19 Glucose 296 mg/dL (65-100) H 04/20/18 04:19 POC Glucose 269 (70-105) H 04/20/18 07:14 Lactic Acid 1.00 mmol/L (0.7-2.0) 04/19/18 22:27 Calcium 8.5 mg/dL (8.4-10.2) 04/20/18 04:19 Troponin T 0.257 ng/mL (0.00-0.029) H* 04/19/18 12:04 NT-Pro-B Natriuret Pep > 34787 pg/mL (0-900) H 04/19/18 07:12 Triglycerides 292 mg/dL (2-149) H 04/19/18 07:12 Cholesterol 92 mg/dL (50-199) 04/19/18 07:12 LDL Cholesterol Direct 12 mg/dL (50-130) L 04/19/18 07:12 HDL Cholesterol 6 mg/dL (40-59) L 04/19/18 07:12 Cholesterol/HDL Ratio 15.33 % 04/19/18 07:12
[2018-04-20] MEDS: SODIUM CHLORIDE FLUSH SYRINGE 10 ML IV SCH ×2 (16:39→22:00)
[2018-04-20] MEDS: LANTUS SUB-Q SCH (21:48)
[2018-04-20] MEDS: BENADRYL PO PRN (21:48)
[2018-04-20] MEDS: PERCOCET 5/325 PO PRN (21:49)
[2018-04-21] MEDS: ZOSYN/NS 2.25 GM/50ML 2.25 GM/50 ML BAG IV SCH ×3 (05:39→22:59)
[2018-04-21 06:00] LABS: Hematocrit 26.4 % (30.3-42.9); Hemoglobin 8.3 gm/dl (10.1-14.3); Mean Corpuscular HGB Conc 31 % (30-34); Mean Corpuscular Hemoglobin 29 pg (28-32); Mean Corpuscular Volume 94 fl (79-97); Red Blood Count 2.81 M/mm3 (3.65-5.03); Red Cell Distribution Width 17.8 % (13.2-15.2)
[2018-04-21] MEDS: HumuLIN R SUB-Q SCH ×4 (07:42→23:01)
[2018-04-21 08:16] LABS: Band Neutrophils # (Manual) 1.8 K/mm3; Basophils % (Manual) 0 % (0.0-1.8); Hypochromasia 1+; Platelet Estimate Consistent w Auto; Total Cells Counted 100
[2018-04-21 08:17] LABS: Platelet Count 63 K/mm3 (140-440)
--- NOTE | 2018-04-21 08:25 | Progress Note ---
Assessment and Plan 1. ESRD: Patient received hemodialysis yesterday. [facility] HD three times a week. 2. Volume overload: 2 Lts of UF yesterday with hemodialysis. Need additional UF, but her BP remains low. Monitor. 3. Hypotension. 4. Sepsis. Staph bacteremia. 5. Anemia. 6. DM-2. Subjective Date of service: 04/21/18 Interval history: Patient is feeling ok. Objective - Vital Signs Vital signs: Vital Signs - 12hr 04/20/18 04/20/18 04/20/18 20:57 21:49 21:52 Temperature Pulse Rate 87 Respiratory 20 Rate Respiratory 20 Rate [left chest] Blood Pressure Blood Pressure [Right] O2 Sat by Pulse Oximetry 04/20/18 04/20/18 04/21/18 22:01 22:49 00:50 Temperature 97.1 F L Pulse Rate 88 74 Respiratory 20 18 Rate Respiratory Rate [left chest] Blood Pressure 97/43 Blood Pressure 98/48 [Right] O2 Sat by Pulse 97 Oximetry - General Appearance General appearance: well-developed, appears stated age, other (no distress, left IJ tunnel catheter) EENT: ATNC, PERRL, hearing intact Neck: supple Respiratory: Present: Clear to Ascultation Cardiology: regular, S1S2, no murmurs Gastrointestinal: normoactive bowel sounds Integumentary: no rash, warm and dry Neurologic: no focal deficit, no asterixis, alert and oriented x3 Musculoskeletal: other (bilateral BKA) Psychiatric: cooperative - Lab 04/21/18 05:05 04/20/18 04:19 Most recent lab results Calcium 8.5 mg/dL (8.4-10.2) 04/20/18 04:19
[2018-04-21] MEDS: RENVELA PO SCH ×3 (08:42→23:01)
--- NOTE | 2018-04-21 10:52 | Progress Note ---
Assessment and Plan Assessment and plan: Generalized pain worse in the lower back - symptomatic management - CT abdomen and pelvis normal, CT thoracolumbar area normal Sepsis lieky from UTI, U/A ordered not collected, patient is making urine - On IV Zosyn ESRD on hemodialysis. Continue hemodialysis per nephrology. Hyperkalemia - Nephrology is following History of [place] - No specific complaints about chest pain - Patient has elevated troponin, but troponin was elevated all the time in her previous admissions, etiology secondary to ESRD Diabetes mellitus with hyperglycemia - Sliding scale insulin, Lantus daily at bedtime - ADA diet, Accu-Chek - Adjust insulin as needed Bilateral BKA DVT prophylaxis - On heparin Disposition - Continue inpatient care History Interval history: 53-year-old -[place] female with past medical history significant for end-stage renal disease on hemodialysis, [place], and bilateral BKA presented to the emergency department with complaints of generalized pain. Patient didn't finish her 's dialysis because of pain. In the ED patient has elevated WBC count, elevated troponin which is chronic Hospitalist Physical - Constitutional Vitals: Temp Pulse Resp BP Pulse Ox 97.7 F 79 16 92/52 100 04/21/18 08:00 04/21/18 08:03 04/21/18 08:00 04/21/18 08:00 04/21/18 09:35 General appearance: Present: mild distress - EENT Eyes: Present: PERRL, EOM intact ENT: hearing intact, clear oral mucosa, dentition normal - Neck Neck: Present: supple, normal ROM - Respiratory Respiratory effort: normal Respiratory: bilateral: CTA - Cardiovascular Rhythm: regular Heart Sounds: Present: S1 & S2. Absent: gallop, rub - Extremities Extremities: no ischemia, No edema, Full ROM Extremity abnormal: other (bilateral BKA) - Abdominal General gastrointestinal: soft, non-tender, non-distended, normal bowel sounds - Integumentary Integumentary: Present: clear, warm, dry - Neurologic Neurologic: CNII-XII intact, moves all extremities Results - Labs CBC & Chem 7: 04/21/18 05:05 04/20/18 04:19 Labs: Laboratory Last Values WBC 25.6 K/mm3 (4.5-11.0) H 04/21/18 05:05 RBC 2.81 M/mm3 (3.65-5.03) L 04/21/18 05:05 Hgb 8.3 gm/dl (10.1-14.3) L 04/21/18 05:05 Hct 26.4 % (30.3-42.9) L 04/21/18 05:05 MCV 94 fl (79-97) 04/21/18 05:05 MCH 29 pg (28-32) 04/21/18 05:05 MCHC 31 % (30-34) 04/21/18 05:05 RDW 17.8 % (13.2-15.2) H 04/21/18 05:05 Plt Count 63 K/mm3 (140-440) L 04/21/18 05:05 Add Manual Diff Complete 04/21/18 05:05 Total Counted 100 04/21/18 05:05 Seg Neutrophils % Support Services Manager 04/20/18 04:19 Seg Neuts % (Manual) 80.0 % (40.0-70.0) H 04/21/18 05:05 Band Neutrophils % 7.0 % 04/21/18 05:05 Lymphocytes % (Manual) 4.0 % (13.4-35.0) L 04/21/18 05:05 Reactive Lymphs % (Man) 0 % 04/21/18 05:05 Monocytes % (Manual) 8.0 % (0.0-7.3) H 04/21/18 05:05 Eosinophils % (Manual) 1.0 % (0.0-4.3) 04/21/18 05:05 Basophils % (Manual) 0 % (0.0-1.8) 04/21/18 05:05 Metamyelocytes % 0 % 04/21/18 05:05 Myelocytes % 0 % 04/21/18 05:05 Promyelocytes % 0 % 04/21/18 05:05 Blast Cells % 0 % 04/21/18 05:05 Nucleated RBC % Not Reportable 04/21/18 05:05 Seg Neutrophils # Man 20.5 K/mm3 (1.8-7.7) H 04/21/18 05:05 Band Neutrophils # 1.8 K/mm3 04/21/18 05:05 Lymphocytes # (Manual) 1.0 K/mm3 (1.2-5.4) L 04/21/18 05:05 Abs React Lymphs (Man) 0.0 K/mm3 08/07/18 05:05 Monocytes # (Manual) 2.0 K/mm3 (0.0-0.8) H 04/21/18 05:05 Eosinophils # (Manual) 0.3 K/mm3 (0.0-0.4) 04/21/18 05:05 Basophils # (Manual) 0.0 K/mm3 (0.0-0.1) 04/21/18 05:05 Metamyelocytes # 0.0 K/mm3 04/21/18 05:05 Myelocytes # 0.0 K/mm3 04/21/18 05:05 Promyelocytes # 0.0 K/mm3 04/21/18 05:05 Blast Cells # 0.0 K/mm3 04/21/18 05:05 WBC Morphology Not Reportable 04/21/18 05:05 Hypersegmented Neuts Not Reportable 04/21/18 05:05 Hyposegmented Neuts Not Reportable 04/21/18 05:05 Hypogranular Neuts Not Reportable 04/21/18 05:05 Smudge Cells Not Reportable 04/21/18 05:05 Toxic Granulation Not Reportable 04/21/18 05:05 Toxic Vacuolation Not Reportable 04/21/18 05:05 Dohle Bodies Not Reportable 04/21/18 05:05 Pelger-Huet Anomaly Not Reportable 04/21/18 05:05 Riccardo Rods Not Reportable 04/21/18 05:05 Platelet Estimate Consistent w auto 04/21/18 05:05 Clumped Platelets Not Reportable 04/21/18 05:05 Plt Clumps, EDTA Not Reportable 04/21/18 05:05 Large Platelets Not Reportable 04/21/18 05:05 Giant Platelets Not Reportable 04/21/18 05:05 Platelet Satelliting Not Reportable 04/21/18 05:05 Plt Morphology Comment Not Reportable 04/21/18 05:05 RBC Morphology Not Reportable 04/21/18 05:05 Dimorphic RBCs Not Reportable 04/21/18 05:05 Polychromasia Not Reportable 04/21/18 05:05 Hypochromasia 1+ 04/21/18 05:05 Poikilocytosis Not Reportable 04/21/18 05:05 Anisocytosis Not Reportable 04/21/18 05:05 Microcytosis Not Reportable 04/21/18 05:05 Macrocytosis Not Reportable 04/21/18 05:05 Spherocytes Not Reportable 04/21/18 05:05 Pappenheimer Bodies Not Reportable 04/21/18 05:05 Sickle Cells Not Reportable 04/21/18 05:05 Target Cells Not Reportable 04/21/18 05:05 Tear Drop Cells Not Reportable 04/21/18 05:05 Ovalocytes Not Reportable 04/21/18 05:05 Helmet Cells Not Reportable 04/21/18 05:05 Nick-[place] Bodies Not Reportable 04/21/18 05:05 [place] Rings Not Reportable 04/21/18 05:05 Bharath Cells Not Reportable 04/21/18 05:05 Bite Cells Not Reportable 04/21/18 05:05 Crenated Cell Not Reportable 04/21/18 05:05 Elliptocytes Not Reportable 04/21/18 05:05 Acanthocytes (Spur) Not Reportable 04/21/18 05:05 Rouleaux Not Reportable 04/21/18 05:05 Hemoglobin C Crystals Not Reportable 04/21/18 05:05 Schistocytes Not Reportable 04/21/18 05:05 Malaria parasites Not Reportable 04/21/18 05:05 Paul Bodies Not Reportable 04/21/18 05:05 Hem Pathologist Commnt No 04/21/18 05:05 Sodium 129 mmol/L (137-145) L 04/20/18 04:19 Potassium 5.3 mmol/L (3.6-5.0) H 04/20/18 04:19 Chloride 89.9 mmol/L (98-107) L 04/20/18 04:19 Carbon Dioxide 19 mmol/L (22-30) L 04/20/18 04:19 Anion Gap 25 mmol/L 04/20/18 04:19 BUN 64 mg/dL (7-17) H 04/20/18 04:19 Creatinine 10.1 mg/dL (0.7-1.2) H 04/20/18 04:19 Estimated GFR 5 ml/min 04/20/18 04:19 BUN/Creatinine Ratio 6 % 04/20/18 04:19 Glucose 296 mg/dL (65-100) H 04/20/18 04:19 POC Glucose 110 (70-105) H 04/21/18 06:41 Lactic Acid 1.00 mmol/L (0.7-2.0) 04/19/18 22:27 Calcium 8.5 mg/dL (8.4-10.2) 04/20/18 04:19 Troponin T 0.257 ng/mL (0.00-0.029) H* 04/19/18 12:04 NT-Pro-B Natriuret Pep > 23038 pg/mL (0-900) H 04/19/18 07:12 Triglycerides 292 mg/dL (2-149) H 04/19/18 07:12 Cholesterol 92 mg/dL (50-199) 04/19/18 07:12 LDL Cholesterol Direct 12 mg/dL (50-130) L 04/19/18 07:12 HDL Cholesterol 6 mg/dL (40-59) L 04/19/18 07:12 Cholesterol/HDL Ratio 15.33 % 04/19/18 07:12
[2018-04-21] MEDS: CARAFATE PO SCH ×2 (11:43→23:00)
[2018-04-21] MEDS: ECOTRIN PO SCH (11:43)
[2018-04-21] MEDS: LOPRESSOR PO SCH ×2 (11:44→23:00)
[2018-04-21] MEDS: LYRICA PO SCH (11:44)
[2018-04-21] MEDS: IMDUR PO SCH (11:44)
[2018-04-21] MEDS: PROTONIX PO SCH (11:45)
[2018-04-21] MEDS: MOBIC PO SCH (11:45)
[2018-04-21] MEDS: Renal Caps PO SCH (11:46)
[2018-04-21] MEDS ORDERED: VANCOMYCIN/NS 1 GM/250 ML 1 GM/250 ML BAG IV ONE (12:00)
[2018-04-21] MEDS ORDERED: VANCOMYCIN PHARMACY TO DOSE IV SCH (12:00)
[2018-04-21] MEDS: SODIUM CHLORIDE FLUSH SYRINGE 10 ML IV SCH ×2 (19:17→23:00)
[2018-04-21] MEDS: LANTUS SUB-Q SCH (22:59)
[2018-04-22] MEDS: ZOSYN/NS 2.25 GM/50ML 2.25 GM/50 ML BAG IV SCH (05:23)
[2018-04-22 06:25] LABS: Hematocrit 23.4 % (30.3-42.9); Hemoglobin 7.7 gm/dl (10.1-14.3); Mean Corpuscular HGB Conc 33 % (30-34); Mean Corpuscular Hemoglobin 30 pg (28-32); Mean Corpuscular Volume 92 fl (79-97); Red Blood Count 2.55 M/mm3 (3.65-5.03); Red Cell Distribution Width 17.6 % (13.2-15.2)
[2018-04-22 06:42] LABS: Calcium 8.4 mg/dL (8.4-10.2); Platelet Count 86 K/mm3 (140-440)
--- NOTE | 2018-04-22 08:03 | Progress Note ---
Assessment and Plan 1. ESRD: Patient received hemodialysis 2 days ago. HD today. [place] HD three times a week. 2. Volume overload: 2 Lts of UF with hemodialysis today as tolerated. 3. Hypotension. BP is improving. 4. Sepsis. Staph bacteremia. ID wants to remove the dialysis catheter, as it may be the possible source of bacteremia. Vascular consulted due to complicated vascular history / possible central vein occlusions. 5. Anemia. 6. DM-2. Subjective Date of service: 04/22/18 Interval history: Patient is feeling ok. Objective - Vital Signs Vital signs: Vital Signs - 12hr 04/21/18 04/21/18 04/21/18 20:12 20:55 22:00 Temperature 98.7 F Pulse Rate 99 H 96 H Respiratory 20 22 Rate Respiratory 20 Rate [left chest] Blood Pressure 76/34 O2 Sat by Pulse 85 97 Oximetry 04/21/18 04/21/18 04/22/18 23:00 23:49 05:12 Temperature 98.4 F 97.9 F Pulse Rate 99 H 89 83 Respiratory 20 20 Rate Respiratory Rate [left chest] Blood Pressure 76/34 94/42 112/53 O2 Sat by Pulse 100 98 Oximetry - General Appearance General appearance: well-developed, appears stated age, other (no distress) EENT: ATNC, PERRL, hearing intact Neck: supple Respiratory: Present: Rales Cardiology: regular, S1S2, no murmurs Gastrointestinal: normoactive bowel sounds, no tenderness Integumentary: no rash, warm and dry Neurologic: no focal deficit, no asterixis, alert and oriented x3 Musculoskeletal: other (bilateral BKA) Psychiatric: cooperative - Lab 04/22/18 05:24 04/22/18 05:24 Most recent lab results Calcium 8.4 mg/dL (8.4-10.2) 04/22/18 05:24
[2018-04-22] MEDS ORDERED: NACL 0.9% 100 ML IV PRN ×4 (08:30→16:06)
[2018-04-22] MEDS: PERCOCET 5/325 PO PRN ×2 (08:45→20:34)
[2018-04-22] MEDS: HumuLIN R SUB-Q SCH ×4 (09:00→23:28)
[2018-04-22 09:35] LABS: Band Neutrophils # (Manual) 1.2 K/mm3; Basophils % (Manual) 0 % (0.0-1.8); Hypochromasia 1+; Total Cells Counted 100
[2018-04-22 09:36] LABS: Platelet Estimate Consistent w Auto
[2018-04-22] MEDS: MOBIC PO SCH (10:29)
[2018-04-22] MEDS: Renal Caps PO SCH (10:29)
[2018-04-22] MEDS: LYRICA PO SCH (10:30)
[2018-04-22] MEDS: CARAFATE PO SCH ×2 (10:30→23:23)
[2018-04-22] MEDS: ECOTRIN PO SCH (10:30)
[2018-04-22] MEDS: LOPRESSOR PO SCH ×2 (10:30→23:22)
[2018-04-22] MEDS: IMDUR PO SCH (10:30)
[2018-04-22] MEDS: PROTONIX PO SCH (10:30)
[2018-04-22] MEDS: SODIUM CHLORIDE FLUSH SYRINGE 10 ML IV SCH ×2 (10:31→23:26)
[2018-04-22] MEDS: RENVELA PO SCH ×4 (10:33→18:00)
--- NOTE | 2018-04-22 11:34 | Progress Note ---
Assessment and Plan Assessment and plan: Generalized pain worse in the lower back - symptomatic management - CT abdomen and pelvis normal, CT thoracolumbar area normal Sepsis. Etiology secondary to staph bacteremia. We will consult infectious disease. Continue IV vancomycin. Follow-up repeat surveillance blood cultures. ESRD on hemodialysis. Continue hemodialysis per nephrology. Hyperkalemia - Nephrology is following History of [place] - No specific complaints about chest pain - Patient has elevated troponin, but troponin was elevated all the time in her previous admissions, etiology secondary to ESRD Diabetes mellitus with hyperglycemia - Sliding scale insulin, Lantus daily at bedtime - ADA diet, Accu-Chek - Adjust insulin as needed Bilateral BKA DVT prophylaxis - On heparin Disposition - Continue inpatient care History Interval history: 53-year-old -[place] female with past medical history significant for end-stage renal disease on hemodialysis, [place], and bilateral BKA presented to the emergency department with complaints of generalized pain. Patient didn't finish her 's dialysis because of pain. In the ED patient has elevated WBC count, elevated troponin which is chronic Hospitalist Physical - Constitutional Vitals: Temp Pulse Resp BP Pulse Ox 97.3 F L 87 20 112/55 100 04/22/18 08:19 04/22/18 10:30 04/22/18 08:45 04/22/18 10:30 04/22/18 08:49 General appearance: Present: no acute distress - EENT Eyes: Present: PERRL, EOM intact ENT: hearing intact, clear oral mucosa, dentition normal - Neck Neck: Present: supple, normal ROM - Respiratory Respiratory effort: normal Respiratory: bilateral: CTA - Cardiovascular Rhythm: regular Heart Sounds: Present: S1 & S2. Absent: gallop, rub - Extremities Extremities: no ischemia, No edema, Full ROM - Abdominal General gastrointestinal: soft, non-tender, non-distended, normal bowel sounds - Integumentary Integumentary: Present: clear, warm, dry - Neurologic Neurologic: CNII-XII intact, moves all extremities Results - Labs CBC & Chem 7: 04/22/18 05:24 04/22/18 05:24 Labs: Laboratory Last Values WBC 29.6 K/mm3 (4.5-11.0) H 04/22/18 05:24 RBC 2.55 M/mm3 (3.65-5.03) L 04/22/18 05:24 Hgb 7.7 gm/dl (10.1-14.3) L 04/22/18 05:24 Hct 23.4 % (30.3-42.9) L 04/22/18 05:24 MCV 92 fl (79-97) 04/22/18 05:24 MCH 30 pg (28-32) 04/22/18 05:24 MCHC 33 % (30-34) 04/22/18 05:24 RDW 17.6 % (13.2-15.2) H 04/22/18 05:24 Plt Count 86 K/mm3 (140-440) L 04/22/18 05:24 Add Manual Diff Complete 04/22/18 05:24 Total Counted 100 04/22/18 05:24 Seg Neutrophils % Rad Technologist 04/20/18 04:19 Seg Neuts % (Manual) 83.0 % (40.0-70.0) H 04/22/18 05:24 Band Neutrophils % 4.0 % 04/22/18 05:24 Lymphocytes % (Manual) 6.0 % (13.4-35.0) L 04/22/18 05:24 Reactive Lymphs % (Man) 0 % 04/22/18 05:24 Monocytes % (Manual) 6.0 % (0.0-7.3) 04/22/18 05:24 Eosinophils % (Manual) 1.0 % (0.0-4.3) 04/22/18 05:24 Basophils % (Manual) 0 % (0.0-1.8) 04/22/18 05:24 Metamyelocytes % 0 % 04/22/18 05:24 Myelocytes % 0 % 04/22/18 05:24 Promyelocytes % 0 % 04/22/18 05:24 Blast Cells % 0 % 04/22/18 05:24 Nucleated RBC % Not Reportable 04/22/18 05:24 Seg Neutrophils # Man 24.6 K/mm3 (1.8-7.7) H 04/22/18 05:24 Band Neutrophils # 1.2 K/mm3 04/22/18 05:24 Lymphocytes # (Manual) 1.8 K/mm3 (1.2-5.4) 04/22/18 05:24 Abs React Lymphs (Man) 0.0 K/mm3 04/22/18 05:24 Monocytes # (Manual) 1.8 K/mm3 (0.0-0.8) H 04/22/18 05:24 Eosinophils # (Manual) 0.3 K/mm3 (0.0-0.4) 04/22/18 05:24 Basophils # (Manual) 0.0 K/mm3 (0.0-0.1) 04/22/18 05:24 Metamyelocytes # 0.0 K/mm3 04/22/18 05:24 Myelocytes # 0.0 K/mm3 04/22/18 05:24 Promyelocytes # 0.0 K/mm3 04/22/18 05:24 Blast Cells # 0.0 K/mm3 04/22/18 05:24 WBC Morphology Not Reportable 04/22/18 05:24 Hypersegmented Neuts Not Reportable 04/22/18 05:24 Hyposegmented Neuts Not Reportable 04/22/18 05:24 Hypogranular Neuts Not Reportable 04/22/18 05:24 Smudge Cells Not Reportable 04/22/18 05:24 Toxic Granulation Not Reportable 04/22/18 05:24 Toxic Vacuolation Not Reportable 04/22/18 05:24 Dohle Bodies Not Reportable 04/22/18 05:24 Pelger-Huet Anomaly Not Reportable 04/22/18 05:24 Riccardo Rods Not Reportable 04/22/18 05:24 Platelet Estimate Consistent w auto 04/22/18 05:24 Clumped Platelets Not Reportable 04/22/18 05:24 Plt Clumps, EDTA Not Reportable 04/22/18 05:24 Large Platelets Not Reportable 04/22/18 05:24 Giant Platelets Not Reportable 04/22/18 05:24 Platelet Satelliting Not Reportable 04/22/18 05:24 Plt Morphology Comment Not Reportable 04/22/18 05:24 RBC Morphology Not Reportable 04/22/18 05:24 Dimorphic RBCs Not Reportable 04/22/18 05:24 Polychromasia Not Reportable 04/22/18 05:24 Hypochromasia 1+ 04/22/18 05:24 Poikilocytosis Not Reportable 04/22/18 05:24 Anisocytosis Not Reportable 04/22/18 05:24 Microcytosis Not Reportable 04/22/18 05:24 Macrocytosis Not Reportable 04/22/18 05:24 Spherocytes Not Reportable 04/22/18 05:24 Pappenheimer Bodies Not Reportable 04/22/18 05:24 Sickle Cells Not Reportable 04/22/18 05:24 Target Cells Not Reportable 04/22/18 05:24 Tear Drop Cells Not Reportable 04/22/18 05:24 Ovalocytes Not Reportable 04/22/18 05:24 Helmet Cells Not Reportable 04/22/18 05:24 Nick-[place] Bodies Not Reportable 04/22/18 05:24 [place] Rings Not Reportable 04/22/18 05:24 [place] Cells Not Reportable 04/22/18 05:24 Bite Cells Not Reportable 04/22/18 05:24 Crenated Cell Not Reportable 04/22/18 05:24 Elliptocytes Not Reportable 04/22/18 05:24 Acanthocytes (Spur) Not Reportable 04/22/18 05:24 Rouleaux Not Reportable 04/22/18 05:24 Hemoglobin C Crystals Not Reportable 04/22/18 05:24 Schistocytes Not Reportable 04/22/18 05:24 Malaria parasites Not Reportable 04/22/18 05:24 Paul Bodies Not Reportable 04/22/18 05:24 Hem Pathologist Commnt No 04/22/18 05:24 Sodium 131 mmol/L (137-145) L 04/22/18 05:24 Potassium 4.2 mmol/L (3.6-5.0) D 04/22/18 05:24 Chloride 90.6 mmol/L (98-107) L 04/22/18 05:24 Carbon Dioxide 24 mmol/L (22-30) 04/22/18 05:24 Anion Gap 21 mmol/L 04/22/18 05:24 BUN 39 mg/dL (7-17) H 04/22/18 05:24 Creatinine 7.5 mg/dL (0.7-1.2) H 04/22/18 05:24 Estimated GFR 7 ml/min 04/22/18 05:24 BUN/Creatinine Ratio 5 % 04/22/18 05:24 Glucose 56 mg/dL (65-100) L 04/22/18 05:24 POC Glucose 60 (70-105) L 04/22/18 06:44 Lactic Acid 1.00 mmol/L (0.7-2.0) 04/19/18 22:27 Calcium 8.4 mg/dL (8.4-10.2) 04/22/18 05:24 Troponin T 0.257 ng/mL (0.00-0.029) H* 04/19/18 12:04 NT-Pro-B Natriuret Pep > 37026 pg/mL (0-900) H 04/19/18 07:12 Triglycerides 292 mg/dL (2-149) H 04/19/18 07:12 Cholesterol 92 mg/dL (50-199) 04/19/18 07:12 LDL Cholesterol Direct 12 mg/dL (50-130) L 04/19/18 07:12 HDL Cholesterol 6 mg/dL (40-59) L 04/19/18 07:12 Cholesterol/HDL Ratio 15.33 % 04/19/18 07:12
--- NOTE | 2018-04-22 12:35 | Consultation ---
History of Present Illness - Reason for Consult Consult date: 04/29/18 Staph bacteremia Requesting physician: WEN MONTERO - History of Present Illness HPI: 52 yo Female PMH ESRD on HD (,, ) via L subclavian HD catheter, [place], CHF, Migraine STEWART, DM, Anxiety, HTN,s/p B BKA, who presented to the ED on 04/19/18 c/o shortness of breath, generalized body pain, more pronounced on her back, for the past 3 weeks with worsening symptoms the last week prior to presentation. Also had intermittent fevers. Denies N/V/D, cough, SOB, CP, abdominal pain, trauma to back, falls. Pt had to skip dialysis due to pain. In the ER temperature was 99.8, pulse 105, respiratory rate 14, saturation 95%, blood pressure 129/57. Labs showed leukocytosis of 29.7, H&H of 8.4 and 26.7, platelets 104. Lactic acid 1.0. Troponin was elevated. Chest x-ray was negative for acute findings. CT of abdomen and pelvis showed no acute intra- abdominal pathology. X-rays of the thoracic and lumbar spine showed no acute findings. Patient was started on Zosyn and vancomycin on 04/19/18. Blood cultures collected on 04/19/18, 4 of 4 bottles, are positive for Staphylococcus aureus. Infectious diseases is consulted today 02/05/18 for further antibiotic management. Microbiology: Blood cultures: 04/19 S aureus Current Antimicrobials: Zosyn 04/19- Vancomycin 04/19- Previous Antimicrobials: Past History Past Medical History: acute GA, diabetes, ESRD, heart failure, hypertension, migraines Past Surgical History: Other (Bilateral BKA, Permacath placement, AV Fistula) Social history: , lives with family. denies: smoking, alcohol abuse, prescription drug abuse Family history: diabetes, hypertension Medications and Allergies Allergies Allergy/AdvReac Type Severity Reaction Status Date / Time azithromycin [From Zithromax] Allergy Rash Verified 07/28/17 07:11 sulfamethoxazole Allergy Unknown Verified 07/28/17 04:12 [From Bactrim] trimethoprim [From Bactrim] Allergy Unknown Verified 07/28/17 04:12 Home Medications Medication Instructions Recorded Confirmed Last Taken Type ISOSORBIDE MONOnitrate [Imdur ER] 60 mg PO DAILY 07/28/17 04/20/18 09/02/17 History Losartan [Cozaar] 50 mg PO QDAY 07/28/17 04/20/18 09/02/17 History Pregabalin [Lyrica] 75 mg PO QDAY #30 capsule 08/04/17 04/20/18 09/02/17 Rx Sucralfate 1 gm PO BID #60 tablet 08/04/17 04/20/18 09/02/17 Rx oxyCODONE /ACETAMINOPHEN [Percocet 1 tab PO Q6H PRN #60 tablet 08/04/1709/02/17 Rx 5/325 mg] Insulin Detemir [Levemir Flextouch] 15 units SUB-Q QHS 08/25/17 04/20/18 History Sevelamer Carbonate [Renvela] 2 tab PO TIDWM 08/25/17 04/20/18 09/02/17 History ALBUTEROL NEB's [Proventil 0.083% 2.5 mg IH Q3HRT PRN nebu 08/26/17 04/20/18 Rx NEBS] AtorvaSTATin [Lipitor] 40 mg PO QHS tablet 08/26/17 04/20/18 09/02/17 Rx Aspirin EC [Aspirin Enteric Coated 325 mg PO QDAY #30 tablet. 09/04/17 Unknown Rx TAB] diphenhydrAMINE [Benadryl CAP] 25 mg PO Q6H PRN #20 capsule 09/04/17 04/20/18 Unknown Rx B Complex 11/Folic/C/Biot/Zinc 1 each PO QDAY 11/15/17 04/20/18 Unknown History [Dialyvite with Zinc Tablet] Meloxicam 15 mg PO QDAY 11/15/17 04/20/18 Unknown History Esomeprazole Magnesium [NexIUM] 20 mg PO QAM #30 capsule. 11/16/17 04/20/18 Unknown Rx Metoprolol [Lopressor TAB] 25 mg PO BID #60 tablet 11/16/17 04/20/18 Unknown Rx Active Meds: Active Medications Acetaminophen (Tylenol) 650 mg PO Q4H PRN PRN Reason: Pain MILD(1-3)/Fever >100.5/STEWART Albuterol (Proventil) 2.5 mg IH Q3HRT PRN PRN Reason: Shortness Of Breath Aspirin (Ecotrin) 325 mg PO QDAY [facility] Last Admin: 04/22/18 10:30 Dose: 325 mg Atorvastatin Calcium (Lipitor) 40 mg PO QHS [facility] Last Admin: 04/21/18 23:00 Dose: 40 mg Diphenhydramine HCl (Benadryl) 25 mg PO Q6H PRN PRN Reason: Itching Last Admin: 04/20/18 21:48 Dose: 25 mg Piperacillin Sod/Tazobactam Sod (Zosyn/Ns 2.25 Gm/50ml) 2.25 gm in 50 mls @ 100 mls/hr IV Q8HR [facility] Last Admin: 04/22/18 05:23 Dose: 100 mls/hr Sodium Chloride (Nacl 0.9%) 100 mls @ 999 mls/hr IV RAIN PRN PRN Reason: Hypotension Vancomycin HCl (Vancomycin/Ns 1 Gm/250 Ml) 1 gm in 250 mls @ 166.667 mls/hr IV MoWeFr [facility] Sodium Chloride (Nacl 0.9%) 100 mls @ 999 mls/hr IV RAIN PRN PRN Reason: Hypotension Insulin Glargine (Lantus) 15 units SUB-Q QHS [facility] Last Admin: 04/21/18 22:59 Dose: 15 units Insulin Human Regular (Humulin R) 0 units SUB-Q ACHS [facility]; Protocol Last Admin: 04/22/18 09:00 Dose: Not Given Isosorbide Mononitrate (Imdur) 60 mg PO DAILY [facility] Last Admin: 04/22/18 10:30 Dose: 60 mg Meloxicam (Mobic) 15 mg PO QDAY [facility] Last Admin: 04/22/18 10:29 Dose: 15 mg Metoprolol Tartrate (Lopressor) 25 mg PO BID [facility] Last Admin: 04/22/18 10:30 Dose: 25 mg Multivit/Ca Carb/B Cmplx/FA/Prenat (Renal Caps) 1 cap PO QDAY [facility] Last Admin: 04/22/18 10:29 Dose: 1 cap Ondansetron HCl (Zofran) 4 mg IV Q8H PRN PRN Reason: Nausea And Vomiting Last Admin: 04/19/18 23:26 Dose: 4 mg Oxycodone/Acetaminophen (Percocet 5/325) 2 tab PO Q6H PRN PRN Reason: Pain, Moderate (4-6) Last Admin: 04/22/18 08:45 Dose: 2 tab Pantoprazole Sodium (Protonix) 20 mg PO QAM [facility] Last Admin: 04/22/18 10:30 Dose: 20 mg Pregabalin (Lyrica) 75 mg PO QDAY [facility] Last Admin: 04/22/18 10:30 Dose: 75 mg Sevelamer Carbonate (Renvela) 1,600 mg PO TIDWM [facility] Last Admin: 04/22/18 10:33 Dose: 1,600 mg Sodium Chloride (Sodium Chloride Flush Syringe 10 Ml) 10 ml IV BID [facility] Last Admin: 04/22/18 10:31 Dose: 10 ml Sodium Chloride (Sodium Chloride Flush Syringe 10 Ml) 10 ml IV PRN PRN PRN Reason: LINE FLUSH Sucralfate (Carafate) 1 gm PO BID [facility] Last Admin: 04/22/18 10:30 Dose: 1 gm Vancomycin HCl (Vancomycin Pharmacy To Dose) 1 each IV PKCONSULT [facility]; Protocol Physical Examination - Physical Exam Narrative exam: General appearance: Pt in NAD. A&ox3. Eyes: anicteric sclerae, moist conjunctivae; PERRLA HENT: Atraumatic; oropharynx clear with moist mucous membranes and no mucosal ulcerations/no oral thrush; normal hard and soft palate. Normal external ears. Neck: Trachea midline; supple, no thyromegaly or lymphadenopathy Lungs: CTA, with normal respiratory effort and no intercostal retractions CV:S1,S2 Abdomen: Soft, non-tender; no masses or hepatosplenomegaly Extremities: B BKA, stumps well healed. Skin: No rash. Psych: Appropriate affect, alert and oriented to person, place and time. Neuro: alert and oriented x 3. Grossly non-focal. Lines: L upper chest HD catheter. - Constitutional Vitals: Vital Signs Temp Pulse Resp BP Pulse Ox 97.3 F L 87 20 112/55 100 04/22/18 08:19 04/22/18 10:30 04/22/18 08:45 04/22/18 10:30 04/22/18 08:49 Temperature -Last 24 Hours Temperature 97.3 F Temperature 97.9 F Temperature 98.4 F Temperature 98.7 F Results - Labs CBC & Chem 7: 04/22/18 05:24 04/22/18 05:24 Labs: Abnormal lab results 04/21/18 04/21/18 04/21/18 Range/Units 12:24 17:53 22:09 WBC (4.5-11.0) K/mm3 RBC (3.65-5.03) M/mm3 Hgb (10.1-14.3) gm/dl Hct (30.3-42.9) % RDW (13.2-15.2) % Plt Count (140-440) K/mm3 Seg Neuts % (Manual) (40.0-70.0) % Lymphocytes % (Manual) (13.4-35.0) % Seg Neutrophils # Man (1.8-7.7) K/mm3 Monocytes # (Manual) (0.0-0.8) K/mm3 Sodium (137-145) mmol/L Chloride (98-107) mmol/L BUN (7-17) mg/dL Creatinine (0.7-1.2) mg/dL Glucose (65-100) mg/dL POC Glucose 277 H 298 H 305 H (70-105) 04/22/18 04/22/18 04/22/18 Range/Units 05:24 05:24 06:44 WBC 29.6 H (4.5-11.0) K/mm3 RBC 2.55 L (3.65-5.03) M/mm3 Hgb 7.7 L (10.1-14.3) gm/dl Hct 23.4 L (30.3-42.9) % RDW 17.6 H (13.2-15.2) % Plt Count 86 L (140-440) K/mm3 Seg Neuts % (Manual) 83.0 H (40.0-70.0) % Lymphocytes % (Manual) 6.0 L (13.4-35.0) % Seg Neutrophils # Man 24.6 H (1.8-7.7) K/mm3 Monocytes # (Manual) 1.8 H (0.0-0.8) K/mm3 Sodium 131 L (137-145) mmol/L Chloride 90.6 L (98-107) mmol/L BUN 39 H (7-17) mg/dL Creatinine 7.5 H (0.7-1.2) mg/dL Glucose 56 L (65-100) mg/dL POC Glucose 60 L (70-105) Assessment and Plan Assessment: 1) Staphylococcus aureus bacteremia. Possible sources hemodialysis catheter infection, vs diskitis/OM in setting of severe back pain, vs endocarditis. 2)Acute leukocytosis. 3)End-stage renal disease on hemodialysis via L upper chest HD catheter 4)Thrombocytopenia 5) s/p Bilateral AKA 6)DM 7) All: azithromycin, bactrim. Plan: -Obtain blood cultures x 2 today -Stop zosyn -Start cefazolin -Continue intravenous vancomycin -Will continue to adjust antibiotics based on Staphylococcus aureus sensitivities -Needs AUDREY -Needs HD catheter removal and tip to be sent for culture. -Needs MRI of whole spine w/o contrast -d/w pt. -d/w Dr Montero. Thank you for your consultation, will follow up with you. Nahed Vasquez MD Infectious Diseases Specialist [facility] ([facility] [phone]
[2018-04-22] MEDS: ANCEF/NS 1 GM/50 ML 1 GM/50 ML BAG IV SCH ×2 (16:00→19:00)
--- NOTE | 2018-04-22 16:58 | Consultation ---
History of Present Illness - Reason for Consult Consult date: 04/22/18 Bacteremia and Possible Line Sepsis Requesting physician: DANIELLE NEGRON - History of Present Illness This Patient is a 52-year-old female that was admitted via the emergency room on 04/19/2018 with complaints of shortness of breath and diffuse body aches. Her symptoms have apparently been present for the last 3 weeks. There's reports of intermittent fever and a leukocytosis of 29,700. Blood cultures were drawn which showed a 4 out of 4 bottles positive for Staphylococcus aureus. An infectious disease consult was placed. The patient was initially started on Zosyn and vancomycin intravenously. The Zosyn has since been converted to Ancef. This patient has end-stage renal disease, and is currently on hemodialysis through a left chest permacath. This was placed in January at [facility]. She is known to our service from previous hospitalizations. She is status post a left upper extremity AV graft creation on 07/31/2017 (4-7 stepped AcuSeal AV graft). The patient used in this access from July 2017 through January 2018. The patient states she developed a "staph infection" in the graft, and it was removed at [facility]. The permacath was placed at that time. A vascular surgery consult is now requested to evaluate for bacteremia and possible line sepsis. Past History Past Medical History: acute OR, diabetes, dialysis, ESRD, heart failure, hypertension, migraines Past Surgical History: PTCA (2), Other (Bilateral BKA, multiple previous Permacath placements, left upper extremity 4-7 stepped AcuSeal AV graft with subsequent removal due to infection, tubal ligation) Social history: , lives with family. denies: smoking, alcohol abuse, prescription drug abuse Family history: diabetes, hypertension Medications and Allergies Allergies Allergy/AdvReac Type Severity Reaction Status Date / Time azithromycin [From Zithromax] Allergy Rash Verified 07/28/17 07:11 sulfamethoxazole Allergy Unknown Verified 07/28/17 04:12 [From Bactrim] trimethoprim [From Bactrim] Allergy Unknown Verified 07/28/17 04:12 Home Medications Medication Instructions Recorded Confirmed Last Taken Type ISOSORBIDE MONOnitrate [Imdur ER] 60 mg PO DAILY 07/28/17 04/20/18 09/02/17 History Losartan [Cozaar] 50 mg PO QDAY 07/28/17 04/20/18 09/02/17 History Pregabalin [Lyrica] 75 mg PO QDAY #30 capsule 08/04/17 04/20/18 09/02/17 Rx Sucralfate 1 gm PO BID #60 tablet 08/04/17 04/20/18 09/02/17 Rx oxyCODONE /ACETAMINOPHEN [Percocet 1 tab PO Q6H PRN #60 tablet 08/04/1709/02/17 Rx 5/325 mg] Insulin Detemir [Levemir Flextouch] 15 units SUB-Q QHS 08/25/17 04/20/18 History Sevelamer Carbonate [Renvela] 2 tab PO TIDWM 08/25/17 04/20/18 09/02/17 History ALBUTEROL NEB's [Proventil 0.083% 2.5 mg IH Q3HRT PRN nebu 08/26/17 04/20/18 Rx NEBS] AtorvaSTATin [Lipitor] 40 mg PO QHS tablet 08/26/17 04/20/18 09/02/17 Rx Aspirin EC [Aspirin Enteric Coated 325 mg PO QDAY #30 tablet. 09/04/17 Unknown Rx TAB] diphenhydrAMINE [Benadryl CAP] 25 mg PO Q6H PRN #20 capsule 09/04/17 04/20/18 Unknown Rx B Complex 11/Folic/C/Biot/Zinc 1 each PO QDAY 11/15/17 04/20/18 Unknown History [Dialyvite with Zinc Tablet] Meloxicam 15 mg PO QDAY 11/15/17 04/20/18 Unknown History Esomeprazole Magnesium [NexIUM] 20 mg PO QAM #30 capsule. 11/16/17 04/20/18 Unknown Rx Metoprolol [Lopressor TAB] 25 mg PO BID #60 tablet 11/16/17 04/20/18 Unknown Rx Active Meds: Active Medications Acetaminophen (Tylenol) 650 mg PO Q4H PRN PRN Reason: Pain MILD(1-3)/Fever >100.5/STEWART Albuterol (Proventil) 2.5 mg IH Q3HRT PRN PRN Reason: Shortness Of Breath Aspirin (Ecotrin) 325 mg PO QDAY [facility] Last Admin: 04/22/18 10:30 Dose: 325 mg Atorvastatin Calcium (Lipitor) 40 mg PO QHS [facility] Last Admin: 04/21/18 23:00 Dose: 40 mg Diphenhydramine HCl (Benadryl) 25 mg PO Q6H PRN PRN Reason: Itching Last Admin: 04/20/18 21:48 Dose: 25 mg Vancomycin HCl (Vancomycin/Ns 1 Gm/250 Ml) 1 gm in 250 mls @ 166.667 mls/hr IV MoWeFr [facility] Cefazolin Sodium (Ancef/Ns 1 Gm/50 Ml) 1 gm in 50 mls @ 100 mls/hr IV Q24HR [facility] ; Protocol Sodium Chloride (Nacl 0.9%) 100 mls @ 999 mls/hr IV RANI PRN PRN Reason: Hypotension Insulin Glargine (Lantus) 15 units SUB-Q QHS [facility] Last Admin: 04/21/18 22:59 Dose: 15 units Insulin Human Regular (Humulin R) 0 units SUB-Q ACHS [facility]; Protocol Last Admin: 04/22/18 09:00 Dose: Not Given Isosorbide Mononitrate (Imdur) 60 mg PO DAILY [facility] Last Admin: 04/22/18 10:30 Dose: 60 mg Meloxicam (Mobic) 15 mg PO QDAY [facility] Last Admin: 04/22/18 10:29 Dose: 15 mg Metoprolol Tartrate (Lopressor) 25 mg PO BID [facility] Last Admin: 04/22/18 10:30 Dose: 25 mg Multivit/Ca Carb/B Cmplx/FA/Prenat (Renal Caps) 1 cap PO QDAY [facility] Last Admin: 04/22/18 10:29 Dose: 1 cap Ondansetron HCl (Zofran) 4 mg IV Q8H PRN PRN Reason: Nausea And Vomiting Last Admin: 04/19/18 23:26 Dose: 4 mg Oxycodone/Acetaminophen (Percocet 5/325) 2 tab PO Q6H PRN PRN Reason: Pain, Moderate (4-6) Last Admin: 04/22/18 08:45 Dose: 2 tab Pantoprazole Sodium (Protonix) [facility] [place] Last Admin: 04/22/18 10:30 Dose: 20 mg Pregabalin (Lyrica) 75 mg PO QDAY [facility] Last Admin: 04/22/18 10:30 Dose: 75 mg Sevelamer Carbonate (Renvela) 1,600 mg PO TIDWM [facility] Last Admin: 04/22/18 10:33 Dose: 1,600 mg Sodium Chloride (Sodium Chloride Flush Syringe 10 Ml) 10 ml IV BID [facility] Last Admin: 04/22/18 10:31 Dose: 10 ml Sodium Chloride (Sodium Chloride Flush Syringe 10 Ml) 10 ml IV PRN PRN PRN Reason: LINE FLUSH Sucralfate (Carafate) 1 gm PO BID [facility] Last Admin: 04/22/18 10:30 Dose: 1 gm Vancomycin HCl (Vancomycin Pharmacy To Dose) 1 each IV PKCONSULT [facility]; Protocol Review of Systems All systems: negative Exam - Constitutional Vitals: Temp Pulse Resp BP Pulse Ox 98.8 F 77 18 102/51 97 04/22/18 14:58 04/22/18 15:30 04/22/18 14:58 04/22/18 15:30 04/22/18 12:02 General appearance: Present: no acute distress - EENT Eyes: Present: EOM intact ENT: hearing intact - Neck Neck: Present: supple (permacath in the left chest currently accessed and functioning adequately for hemodialysis) - Respiratory Respiratory effort: normal (unlabored at rest) - Extremities Extremities: no ischemia, abnormal (left upper extremity upper arm has a linear incision from the axilla to just proximal to the antecubital fossa. There he appears mostly healed with an eschar in the middle. There does not appear to be any erythema or drainage appreciated.) Extremity abnormal: other (she has bilateral below the knee amputations) - Psychiatric Psychiatric: appropriate mood/affect, intact judgment & insight, cooperative - Neurologic Neurologic: no focal deficits Results - Labs CBC & Chem 7: 04/22/18 05:24 04/22/18 05:24 Labs: Abnormal lab results 04/21/18 04/21/18 04/22/18 Range/Units 17:53 22:09 05:24 WBC 29.6 H (4.5-11.0) K/mm3 RBC 2.55 L (3.65-5.03) M/mm3 Hgb 7.7 L (10.1-14.3) gm/dl Hct 23.4 L (30.3-42.9) % RDW 17.6 H (13.2-15.2) % Plt Count 86 L (140-440) K/mm3 Seg Neuts % (Manual) 83.0 H (40.0-70.0) % Lymphocytes % (Manual) 6.0 L (13.4-35.0) % Seg Neutrophils # Man 24.6 H (1.8-7.7) K/mm3 Monocytes # (Manual) 1.8 H (0.0-0.8) K/mm3 Sodium (137-145) mmol/L Chloride (98-107) mmol/L BUN (7-17) mg/dL Creatinine (0.7-1.2) mg/dL Glucose (65-100) mg/dL POC Glucose 298 H 305 H (70-105) 04/22/18 04/22/18 04/22/18 Range/Units 05:24 06:44 12:12 WBC (4.5-11.0) K/mm3 RBC (3.65-5.03) M/mm3 Hgb (10.1-14.3) gm/dl Hct (30.3-42.9) % RDW (13.2-15.2) % Plt Count (140-440) K/mm3 Seg Neuts % (Manual) (40.0-70.0) % Lymphocytes % (Manual) (13.4-35.0) % Seg Neutrophils # Man (1.8-7.7) K/mm3 Monocytes # (Manual) (0.0-0.8) K/mm3 Sodium 131 L (137-145) mmol/L Chloride 90.6 L (98-107) mmol/L BUN 39 H (7-17) mg/dL Creatinine 7.5 H (0.7-1.2) mg/dL Glucose 56 L (65-100) mg/dL POC Glucose 60 L 122 H (70-105) Assessment and Plan This patient was admitted with sepsis. Blood cultures revealed a staph aureus bacteremia. She has a left internal jugular vein permacath that was placed in January 2017 at [facility]. This was following a left upper extremity AV graft removal due to a "staph" infection. This patient has multiple previous hemodialysis catheters. Removing the permacath for a line holiday could result in loss of upper body catheter access. We'll make patient nothing by mouth after midnight for possible permacath exchange versus removal and subsequent replacement following a line holiday. Discussed with the patient. She will need new long-term hemodialysis access once all infectious issues have been resolved. - Patient Problems (1) Sepsis Current Visit: Yes Status: Acute Qualifiers: Sepsis type: sepsis due to unspecified organism Qualified Code(s): A41.9 - Sepsis, unspecified organism (2) Bacteremia Current Visit: Yes Status: Acute (3) ESRD (end stage renal disease) on dialysis Current Visit: No Status: Acute (4) Hypertension Current Visit: No Status: Chronic Qualifiers: Hypertension type: essential hypertension Qualified Code(s): I10 - Essential (primary) hypertension (5) Diabetes mellitus with hyperglycemia Current Visit: No Status: Chronic Qualifiers: Diabetes mellitus type: type 2
[2018-04-22] MEDS ORDERED: VANCOMYCIN/NS 1 GM/250 ML 1 GM/250 ML BAG IV SCH (20:00)
[2018-04-22] MEDS: SODIUM CHLORIDE FLUSH SYRINGE 10 ML IV PRN (20:38)
[2018-04-22] MEDS: LANTUS SUB-Q SCH (23:23)
[2018-04-23] MEDS: PERCOCET 5/325 PO PRN ×3 (05:53→22:08)
[2018-04-23] MEDS: HumuLIN R SUB-Q SCH ×4 (07:00→22:12)
[2018-04-23] MEDS ORDERED: D50W (25GM) Syringe IV ONE (07:34)
[2018-04-23] MEDS: SODIUM CHLORIDE FLUSH SYRINGE 10 ML IV PRN (07:42)
--- NOTE | 2018-04-23 07:57 | Progress Note ---
Assessment and Plan 1. ESRD: Patient was last dialyzed yesterday. Cotinue HD three times a week. 2. Volume overload: 2 Lts of UF with hemodialysis yesterday. Volume status is better. 3. Hypotension. BP is improving. 4. Sepsis. Staph bacteremia. Tunnel dialysis catheter exchange today by Vascular. 5. Anemia. 6. DM-2. Subjective Date of service: 04/23/18 Interval history: Patient is feeling better. Objective - Vital Signs Vital signs: Vital Signs - 12hr 04/22/18 04/22/18 04/22/18 20:04 22:00 23:22 Temperature 99.4 F Pulse Rate 114 H 94 H Respiratory 20 Rate Blood Pressure 142/60 144/60 O2 Sat by Pulse 93 97 Oximetry 04/22/18 04/22/18 04/23/18 23:51 23:52 05:27 Temperature 98.1 F Pulse Rate 86 87 87 Respiratory 22 22 20 Rate Blood Pressure 107/49 121/63 O2 Sat by Pulse 97 95 91 Oximetry - General Appearance General appearance: well-developed, well-nourished, appears stated age, other ( no distress, left IJ tunnel catheter) EENT: ATNC, PERRL, hearing intact, vision intact Neck: supple Respiratory: Present: Rales Cardiology: regular, S1S2, no murmurs Gastrointestinal: normoactive bowel sounds, no tenderness Integumentary: no rash, warm and dry Neurologic: no focal deficit, no asterixis, alert and oriented x3 Musculoskeletal: other (no edema, bilateral BKA) Psychiatric: cooperative - Lab 04/22/18 05:24 04/22/18 05:24 Most recent lab results Calcium 8.4 mg/dL (8.4-10.2) 04/22/18 05:24
[2018-04-23] MEDS: LOPRESSOR PO SCH ×2 (10:00→22:07)
[2018-04-23] MEDS: CARAFATE PO SCH ×2 (10:00→22:08)
[2018-04-23] MEDS: PROTONIX PO SCH (10:00)
[2018-04-23] MEDS: Renal Caps PO SCH (10:00)
[2018-04-23] MEDS: ECOTRIN PO SCH (10:00)
[2018-04-23] MEDS: MOBIC PO SCH (10:00)
[2018-04-23] MEDS: LYRICA PO SCH ×2 (10:00→22:07)
[2018-04-23] MEDS: IMDUR PO SCH (10:00)
[2018-04-23] MEDS: RENVELA PO SCH ×3 (10:22→18:55)
[2018-04-23] MEDS ORDERED: HEPARIN/NS 5000 UNIT/500ML(CATH LAB) 500 ML IR ONE (11:14)
[2018-04-23] MEDS ORDERED: VERSED ONE (11:14)
[2018-04-23] MEDS ORDERED: XYLOCAINE 1%/ EPI 1:100,000 INFILTRATI ONE (11:15)
[2018-04-23] MEDS ORDERED: SUBLIMAZE ONE (11:15)
[2018-04-23] MEDS ORDERED: NACL 0.9% 250ML 250 ML ONE (11:17)
--- NOTE | 2018-04-23 11:18 | Progress Note ---
Assessment and Plan Assessment and plan: Generalized pain worse in the lower back - symptomatic management - CT abdomen and pelvis normal, CT thoracolumbar area normal Sepsis. Etiology secondary to staph bacteremia. Infectious disease following. Continue IV vancomycin. Follow-up repeat surveillance blood cultures. Etiology likely secondary to line sepsis from hemodialysis catheter infection. Other possible etiologies may be discitis/OM given the back pain and endocarditis. Follow-up MRI and echocardiogram. ESRD on hemodialysis. Continue hemodialysis per nephrology. Patient will have hemodialysis catheter removal and tip cultured. Hyperkalemia - Nephrology is following History of CO - No specific complaints about chest pain - Patient has elevated troponin, but troponin was elevated all the time in her previous admissions, etiology secondary to ESRD Diabetes mellitus with hyperglycemia - Sliding scale insulin, Lantus daily at bedtime - ADA diet, Accu-Chek - Adjust insulin as needed Bilateral BKA DVT prophylaxis - On heparin Disposition - Continue inpatient care History Interval history: 53-year-old -[place] female with past medical history significant for end-stage renal disease on hemodialysis, CO, and bilateral BKA presented to the emergency department with complaints of generalized pain. Patient didn't finish her 's dialysis because of pain. In the ED patient has elevated WBC count, elevated troponin which is chronic. Patient was found to have sepsis likely secondary to line sepsis Hospitalist Physical - Constitutional Vitals: Temp Pulse Resp BP Pulse Ox 98.1 F 87 20 121/63 91 04/23/18 05:27 04/23/18 05:27 04/23/18 05:27 04/23/18 05:27 04/23/18 05:27 General appearance: Present: no acute distress - EENT Eyes: Present: PERRL, EOM intact ENT: hearing intact, clear oral mucosa, dentition normal - Neck Neck: Present: supple, normal ROM - Respiratory Respiratory effort: normal Respiratory: bilateral: CTA - Cardiovascular Rhythm: regular Heart Sounds: Present: S1 & S2. Absent: gallop, rub - Extremities Extremities: no ischemia, No edema, Full ROM - Abdominal General gastrointestinal: soft, non-tender, non-distended, normal bowel sounds - Integumentary Integumentary: Present: clear, warm, dry - Neurologic Neurologic: CNII-XII intact, moves all extremities Results - Labs CBC & Chem 7: 04/22/18 05:24 04/22/18 05:24 Labs: Laboratory Last Values WBC 29.6 K/mm3 (4.5-11.0) H 04/22/18 05:24 RBC 2.55 M/mm3 (3.65-5.03) L 04/22/18 05:24 Hgb 7.7 gm/dl (10.1-14.3) L 04/22/18 05:24 Hct 23.4 % (30.3-42.9) L 04/22/18 05:24 MCV 92 fl (79-97) 04/22/18 05:24 MCH 30 pg (28-32) 04/22/18 05:24 MCHC 33 % (30-34) 04/22/18 05:24 RDW 17.6 % (13.2-15.2) H 04/22/18 05:24 Plt Count 86 K/mm3 (140-440) L 04/22/18 05:24 Add Manual Diff Complete 04/22/18 05:24 Total Counted 100 04/22/18 05:24 Seg Neutrophils % Business Office Assistant 04/20/18 04:19 Seg Neuts % (Manual) 83.0 % (40.0-70.0) H 04/22/18 05:24 Band Neutrophils % 4.0 % 04/22/18 05:24 Lymphocytes % (Manual) 6.0 % (13.4-35.0) L 04/22/18 05:24 Reactive Lymphs % (Man) 0 % 04/22/18 05:24 Monocytes % (Manual) 6.0 % (0.0-7.3) 04/22/18 05:24 Eosinophils % (Manual) 1.0 % (0.0-4.3) 04/22/18 05:24 Basophils % (Manual) 0 % (0.0-1.8) 04/22/18 05:24 Metamyelocytes % 0 % 04/22/18 05:24 Myelocytes % 0 % 04/22/18 05:24 Promyelocytes % 0 % 04/22/18 05:24 Blast Cells % 0 % 04/22/18 05:24 Nucleated RBC % Not Reportable 04/22/18 05:24 Seg Neutrophils # Man 24.6 K/mm3 (1.8-7.7) H 04/22/18 05:24 Band Neutrophils # 1.2 K/mm3 04/22/18 05:24 Lymphocytes # (Manual) 1.8 K/mm3 (1.2-5.4) 04/22/18 05:24 Abs React Lymphs (Man) 0.0 K/mm3 04/22/18 05:24 Monocytes # (Manual) 1.8 K/mm3 (0.0-0.8) H 04/22/18 05:24 Eosinophils # (Manual) 0.3 K/mm3 (0.0-0.4) 04/22/18 05:24 Basophils # (Manual) 0.0 K/mm3 (0.0-0.1) 04/22/18 05:24 Metamyelocytes # 0.0 K/mm3 04/22/18 05:24 Myelocytes # 0.0 K/mm3 04/22/18 05:24 Promyelocytes # 0.0 K/mm3 04/22/18 05:24 Blast Cells # 0.0 K/mm3 04/22/18 05:24 WBC Morphology Not Reportable 04/22/18 05:24 Hypersegmented Neuts Not Reportable 04/22/18 05:24 Hyposegmented Neuts Not Reportable 04/22/18 05:24 Hypogranular Neuts Not Reportable 04/22/18 05:24 Smudge Cells Not Reportable 04/22/18 05:24 Toxic Granulation Not Reportable 04/22/18 05:24 Toxic Vacuolation Not Reportable 04/22/18 05:24 Dohle Bodies Not Reportable 04/22/18 05:24 Pelger-Huet Anomaly Not Reportable 04/22/18 05:24 Riccardo Rods Not Reportable 04/22/18 05:24 Platelet Estimate Consistent w auto 04/22/18 05:24 Clumped Platelets Not Reportable 04/22/18 05:24 Plt Clumps, EDTA Not Reportable 04/22/18 05:24 Large Platelets Not Reportable 04/22/18 05:24 Giant Platelets Not Reportable 04/22/18 05:24 Platelet Satelliting Not Reportable 04/22/18 05:24 Plt Morphology Comment Not Reportable 04/22/18 05:24 RBC Morphology Not Reportable 04/22/18 05:24 Dimorphic RBCs Not Reportable 04/22/18 05:24 Polychromasia Not Reportable 04/22/18 05:24 Hypochromasia 1+ 04/22/18 05:24 Poikilocytosis Not Reportable 04/22/18 05:24 Anisocytosis Not Reportable 04/22/18 05:24 Microcytosis Not Reportable 04/22/18 05:24 Macrocytosis Not Reportable 04/22/18 05:24 Spherocytes Not Reportable 04/22/18 05:24 Pappenheimer Bodies Not Reportable 04/22/18 05:24 Sickle Cells Not Reportable 04/22/18 05:24 Target Cells Not Reportable 04/22/18 05:24 Tear Drop Cells Not Reportable 04/22/18 05:24 Ovalocytes Not Reportable 04/22/18 05:24 Helmet Cells Not Reportable 04/22/18 05:24 Nick-Sammy Martinez Bodies Not Reportable 04/22/18 05:24 [place] Rings Not Reportable 04/22/18 05:24 [place] Cells Not Reportable 04/22/18 05:24 Bite Cells Not Reportable 04/22/18 05:24 Crenated Cell Not Reportable 04/22/18 05:24 Elliptocytes Not Reportable 04/22/18 05:24 Acanthocytes (Spur) Not Reportable 04/22/18 05:24 Rouleaux Not Reportable 04/22/18 05:24 Hemoglobin C Crystals Not Reportable 04/22/18 05:24 Schistocytes Not Reportable 04/22/18 05:24 Malaria parasites Not Reportable 04/22/18 05:24 Paul Bodies Not Reportable 04/22/18 05:24 Hem Pathologist Commnt No 04/22/18 05:24 Sodium 131 mmol/L (137-145) L 04/22/18 05:24 Potassium 4.2 mmol/L (3.6-5.0) D 04/22/18 05:24 Chloride 90.6 mmol/L (98-107) L 04/22/18 05:24 Carbon Dioxide 24 mmol/L (22-30) 04/22/18 05:24 Anion Gap 21 mmol/L 04/22/18 05:24 BUN 39 mg/dL (7-17) H 04/22/18 05:24 Creatinine 7.5 mg/dL (0.7-1.2) H 08/08/18 05:24 Estimated GFR 7 ml/min 04/22/18 05:24 BUN/Creatinine Ratio 5 % 04/22/18 05:24 Glucose 56 mg/dL (65-100) L 04/22/18 05:24 POC Glucose 85 (70-105) 04/23/18 10:39 Lactic Acid 1.00 mmol/L (0.7-2.0) 04/19/18 22:27 Calcium 8.4 mg/dL (8.4-10.2) 04/22/18 05:24 Troponin T 0.257 ng/mL (0.00-0.029) H* 04/19/18 12:04 NT-Pro-B Natriuret Pep > 35696 pg/mL (0-900) H 04/19/18 07:12 Triglycerides 292 mg/dL (2-149) H 04/19/18 07:12 Cholesterol 92 mg/dL (50-199) 04/19/18 07:12 LDL Cholesterol Direct 12 mg/dL (50-130) L 04/19/18 07:12 HDL Cholesterol 6 mg/dL (40-59) L 04/19/18 07:12 Cholesterol/HDL Ratio 15.33 % 04/19/18 07:12
[2018-04-23] MEDS: HEPARIN 10,000 UNITS/10 ML ONE ×3 (11:46→12:10)
--- NOTE | 2018-04-23 12:32 | Event Note ---
Date: 04/23/18 Multiple prior permcaths which limit patient's upper extremity access. Discussed options with patient about permcath exchange vs removal. Patient wants exchange. Discussed r/b/a. Discussed with ID physician.
--- NOTE | 2018-04-23 12:35 | Operative Report ---
Operative Report Operative Report: EXAM: 1. Fluoroscopic guided exchange of a left internal jugular tunneled cuffed hemodialysis catheter. 2. Superior venacava venography and left innominate vein venography 3. Angioplasty with a 12 mm x 60 mm angioplasty balloon of the SVC and left innominate vein DATE: 04/23/18 INDICATION: PermCath infection with malfunction requiring exchange. Patient has limited IV access options with multiple prior PermCath. She is not septic. Discussed options of PermCath exchange versus removal and placement. Patient wishes to have PermCath exchange to avoid losing upper extremity access. Loss of upper extremity access is an extremely morbid condition associated with higher mortality. MEDICATIONS: Please see nursing report for full details. CONCRETE VIBRATOR OPERATOR: YARELY JOLLY MD DEVICES: 23 cm tip to cuff 15 Fr dual lumen hemodialysis catheter ; existing catheter was a 23 cm tip to cuff dual lumen hemodialysis catheter CONTRAST: Please see orthodontic lab technician report for full details PROCEDURE: The risks, benefits, and alternatives were discussed and informed consent was obtained. The patient was transported to the angiography suite in satisfactory/ stable condition and was transported onto the angiography table. The patient was prepped and draped in a sterile fashion. The existing PermCath was prepped and draped in a sterile fashion. Heparin was removed from the lumens and then saline was used to flush the lumens. A stiff angled Glidewire was advanced through one of the lumen of the existing PermCath. Lidocaine was used to anesthetize the existing PermCath dermatotomy. Using a hemostat, blunt dissection was used to free the existing cuff. The catheter was partially retracted. Digital subtraction venography was performed through the other lumen. Over the 0.035 inch wire, the existing PermCath was removed and a 7 [place] sheath was advanced over the wire. The wire was cleaned with ChloraPrep prior to sheath placement. 12 mm x 60 mm angioplasty balloon was advanced over the wire and used to perform angioplasty along the left innominate vein and SVC. The balloon was removed and a second wire was passed into the IVC. The sheath was removed. Wires were cleaned with ChloraPrep again and gloves were cleaned with ChloraPrep. A new PermCath was advanced over the wire and position centrally under fluoroscopic guidance. 2-0 Ethilon suture was used to secure the catheter at the dermatotomy. The catheter was charged with heparin 1000 units per mL of space. The patient was transferred from the angiography suite back to the floor in stable condition. FINDINGS: 1. Excellent flow was obtained through the dialysis catheter with 20 mL syringes. 2. The new catheter tip is in the right atrium. 3. Superior vena cava venography and left innominate venography demonstrates moderate stenosis. Status post angioplasty results in minimal residual narrowing of the SVC and left innominate vein. 4. Tip of the old catheter was cut off and sent for culture. IMPRESSION: 1. Successful fluoroscopic guided replacement of a left internal jugular tunneled cuffed hemodialysis catheter. 2. Successful angioplasty of the SVC and left innominate vein.
--- NOTE | 2018-04-23 12:35 | Post Operative Note ---
Date of procedure: 04/23/18 Pre-op diagnosis: Permcath bacteremia Post-op diagnosis: same Procedure: 1. Permcath exchange 2. Central venography 3. Central venoplasty old tip sent off for culture Anesthesia: local Surgeon: YARELY JOLLY Estimated blood loss: minimal Condition: stable Disposition: floor
--- NOTE | 2018-04-23 13:04 | Progress Note ---
Assessment and Plan Assessment: 1)Staphylococcus aureus (MSSA) bacteremia. Possible sources hemodialysis catheter infection, vs diskitis/OM in setting of severe back pain, vs endocarditis. 2)Acute leukocytosis. Trending up. 3)End-stage renal disease on hemodialysis via L upper chest HD catheter 4)Thrombocytopenia. Better. 5) s/p Bilateral AKA 6)DM 7) All: azithromycin, bactrim. Plan: -Will f/u blood cultures. -Continue cefazolin. -Stop vancomycin. -Awaiting AUDREY and MRI of spine. -Will f/u catheteter tip culture. -d/w pt, RN, vascular service. Thank you for your consultation, will follow up with you. Nahed Vasquez MD Infectious Diseases Specialist [facility] ([facility]) M [phone] Subjective Date of service: 04/23/18 Interval history: Underwent HD catheter exchange today. Since she has very difficult vascular access it was too risky to leave her with no catheter for HD as per d/w vascular service. Microbiology: Blood cultures: 04/19 S aureus (MSSA) 04/22 pending Current Antimicrobials: Vancomycin 04/19- Cefazolin 04/22- Previous Antimicrobials: Zosyn 04/19-04/22 Objective - Exam Narrative Exam: General appearance: Pt in NAD. A&ox3. Eyes: anicteric sclerae, moist conjunctivae; PERRLA HENT: Atraumatic; oropharynx clear with moist mucous membranes and no mucosal ulcerations/no oral thrush; normal hard and soft palate. Normal external ears. Neck: Trachea midline; supple, no thyromegaly or lymphadenopathy Lungs: CTA, with normal respiratory effort and no intercostal retractions CV:S1,S2 Abdomen: Soft, non-tender; no masses or hepatosplenomegaly Extremities: B BKA, stumps well healed. Skin: No rash. Psych: Appropriate affect, alert and oriented to person, place and time. Neuro: alert and oriented x 3. Grossly non-focal. Lines: L upper chest HD catheter (exchange 04/23). - Constitutional Vitals: Vital Signs Temp Pulse Resp BP Pulse Ox 98.1 F 87 20 121/63 91 04/23/18 05:27 04/23/18 05:27 04/23/18 05:27 04/23/18 05:27 04/23/18 05:27 Temperature -Last 24 Hours Temperature 98.1 F Temperature 99.4 F Temperature 98.8 F Temperature 98.8 F - Labs CBC & Chem 7: 04/22/18 05:24 04/22/18 05:24 Labs: Abnormal lab results 04/22/18 04/23/18 Range/Units 21:40 07:17 POC Glucose 391 H 48 L (70-105)
[2018-04-23] MEDS: MORPHINE IV PRN (18:52)
[2018-04-23] MEDS: SODIUM CHLORIDE FLUSH SYRINGE 10 ML IV SCH ×2 (18:57→22:13)
[2018-04-23] MEDS: ZOFRAN IV PRN (19:01)
[2018-04-23] MEDS: ANCEF/NS 1 GM/50 ML 1 GM/50 ML BAG IV SCH (22:08)
[2018-04-23] MEDS: LANTUS SUB-Q SCH (22:09)
[2018-04-24] MEDS: HumuLIN R SUB-Q SCH ×4 (07:30→22:06)
[2018-04-24 07:39] LABS: Calcium 8.4 mg/dL (8.4-10.2)
[2018-04-24 08:08] LABS: Hematocrit 24.2 % (30.3-42.9); Hemoglobin 7.7 gm/dl (10.1-14.3); Mean Corpuscular HGB Conc 32 % (30-34); Mean Corpuscular Hemoglobin 29 pg (28-32); Mean Corpuscular Volume 93 fl (79-97); Mean Platelet Volume 12.1 fl (6-12); Platelet Count 155 K/mm3 (140-440); Red Blood Count 2.61 M/mm3 (3.65-5.03); Red Cell Distribution Width 18.3 % (13.2-15.2)
[2018-04-24] MEDS: SODIUM CHLORIDE FLUSH SYRINGE 10 ML IV SCH (09:00)
[2018-04-24] MEDS ORDERED: HURRICAINE ONE 20% TOPICAL SPRAY MM NR (09:00)
--- NOTE | 2018-04-24 09:42 | Anesthesia Consultation ---
Anesthesia Consult and Med Hx Date of service: 04/24/18 - Airway Anesthetic Teeth Evaluation: Dentures (upper) ROM Head & Neck: Adequate Mental/Hyoid Distance: Adequate Mallampati Class: Class II Intubation Access Assessment: Probably Good - Pulmonary Exam CTA: Yes - Cardiac Exam Cardiac Exam: RRR - Pre-Operative Health Status ASA Pre-Surgery Classification: ASA4 Proposed Anesthetic Plan: MAC - Pulmonary Hx Smoking: Yes (daily marijuana use) Hx Asthma: No Hx Respiratory Symptoms: Yes (dyspnea on admission) COPD: No Home Oxygen Therapy: No Hx Pneumonia: No Hx Sleep Apnea: No - Cardiovascular System Hx Hypertension: Yes Hx Coronary Artery Disease: Yes Hx Heart Attack/AMI: Yes (x2, most recent in 2013) Hx Angina: Yes (prior to admission but none since. Presumed noncardiac etiology. ) Hx Percutaneous Transluminal Coronary Angioplasty (PTCA): Yes Hx Peripheral Vascular Disease: Yes (s/p b/l BKA) - Central Nervous System Hx Neuromuscular Disorder: No Hx Back Pain: Yes Hx Psychiatric Problems: Yes (anxiety) - Gastrointestinal Hx Ulcer: Yes - Endocrine Hx Renal Disease: Yes Hx End Stage Renal Disease: Yes (HD (T/T/S)) Hx Insulin Dependent Diabetes: Yes Hx Thyroid Disease: No - Hematic Hx Anemia: Yes - Other Systems Hx Substance Use: Yes (daily marijuana use) Hx Cancer: No - Additional Comments Anesthesia Medical History Comments: PMH previous [place], ESRD on HD, DM found to have staph bacteremia and concern for endocarditis and osteomyelitis
[2018-04-24] MEDS: LYRICA PO SCH (10:00)
[2018-04-24] MEDS: CARAFATE PO SCH ×2 (10:00→22:08)
[2018-04-24] MEDS: MOBIC PO SCH (10:00)
[2018-04-24] MEDS: LOPRESSOR PO SCH ×2 (10:00→22:08)
[2018-04-24] MEDS: IMDUR PO SCH (10:00)
[2018-04-24] MEDS: PROTONIX PO SCH (10:00)
[2018-04-24] MEDS: Renal Caps PO SCH (10:00)
[2018-04-24] MEDS: ECOTRIN PO SCH (10:00)
[2018-04-24 11:16] LABS: Band Neutrophils # (Manual) 0.5 K/mm3; Basophils % (Manual) 0 % (0.0-1.8); Total Cells Counted 100
[2018-04-24 11:17] LABS: Anisocytosis 1+; Hypochromasia 2+; Macrocytosis 1+; Platelet Estimate Consistent w Auto
[2018-04-24] MEDS ORDERED: HURRICAINE ONE 20% TOPICAL SPRAY MM (11:19)
[2018-04-24] MEDS: RENVELA PO SCH ×3 (11:30→18:57)
--- NOTE | 2018-04-24 11:33 | Progress Note ---
Assessment and Plan 1. ESRD: Patient was last dialyzed 2 days ago. Cotinue HD three times a week. HD tomorrow. 2. Volume overload: 2 Lts of UF with hemodialysis today. 3. Hypotension. BP is better. 4. Sepsis. Staph bacteremia. S/p exchange of Tunnel dialysis catheter yesterday. 5. Anemia. 6. DM-2. Subjective Date of service: 04/24/18 Interval history: Patient is feeling better. Objective - Vital Signs Vital signs: Vital Signs - 12hr 04/24/18 04/24/18 00:37 04:40 Temperature 98.4 F 98.0 F Pulse Rate 90 45 L Respiratory 18 18 Rate Blood Pressure 140/80 125/69 O2 Sat by Pulse 95 61 L Oximetry - General Appearance General appearance: well-developed, well-nourished, appears stated age, other ( not in distress) EENT: ATNC, PERRL, hearing intact Neck: supple Respiratory: Present: Rales Cardiology: regular, S1S2, no murmurs Gastrointestinal: normoactive bowel sounds Integumentary: no rash, warm and dry Neurologic: no focal deficit, no asterixis, alert and oriented x3 Musculoskeletal: other (bilateral BKA) Psychiatric: cooperative - Lab 04/24/18 06:26 04/24/18 06:26 Most recent lab results Calcium 8.4 mg/dL (8.4-10.2) 04/24/18 06:26
[2018-04-24] MEDS ORDERED: NACL 0.9% 500 ML 500 ML IV SCH (12:00)
--- NOTE | 2018-04-24 12:35 | Anesthesia Day of Surgery ---
Anesthesia Day of Surgery - Day of Surgery Patient Examined: Yes Patient H&P Reviewed: Yes Patient is NPO: Yes
[2018-04-24] MEDS ORDERED: KETALAR ONE (12:41)
[2018-04-24] MEDS ORDERED: VERSED ONE (12:41)
[2018-04-24] MEDS ORDERED: XYLOCAINE MPF 2% ONE (12:46)
--- NOTE | 2018-04-24 12:54 | Progress Note ---
Assessment and Plan Assessment and plan: Generalized pain worse in the lower back - symptomatic management - CT abdomen and pelvis normal, CT thoracolumbar area normal -MRI lumbar spine to rule out discitis pending. Sepsis. Etiology secondary to staph bacteremia. Infectious disease following. Continue IV vancomycin. Follow-up repeat surveillance blood cultures. Etiology likely secondary to line sepsis from hemodialysis catheter infection. Patient is status post PermCath exchange per IR. Other possible etiologies may be discitis/OM given the back pain and endocarditis. Follow-up MRI and echocardiogram. Leukocytosis. Etiology secondary to sepsis. ESRD on hemodialysis. Continue hemodialysis per nephrology. Hyperkalemia -Resolved - Nephrology is following History of RI - No specific complaints about chest pain - Patient has elevated troponin, but troponin was elevated all the time in her previous admissions, etiology secondary to ESRD Diabetes mellitus with hyperglycemia - Sliding scale insulin, Lantus daily at bedtime - ADA diet, Accu-Chek - Adjust insulin as needed Bilateral BKA DVT prophylaxis - On heparin Disposition - Continue inpatient care History Interval history: 53-year-old -[place] female with past medical history significant for end-stage renal disease on hemodialysis, RI, and bilateral BKA presented to the emergency department with complaints of generalized pain. Patient didn't finish her 's dialysis because of pain. In the ED patient has elevated WBC count, elevated troponin which is chronic. Patient was found to have sepsis likely secondary to line sepsis. The patient was seen in MRI. Patient undergoing MRI of lower spine to rule out discitis. Hospitalist Physical - Constitutional Vitals: Temp Pulse Resp BP Pulse Ox 97.1 F L 88 16 143/67 100 04/24/18 12:31 04/24/18 12:44 04/24/18 12:44 04/24/18 12:44 04/24/18 12:44 General appearance: Present: no acute distress - Respiratory Respiratory effort: normal Respiratory: bilateral: CTA - Cardiovascular Heart Sounds: Absent: gallop, rub - Abdominal General gastrointestinal: soft, non-tender, non-distended, normal bowel sounds - Neurologic Neurologic: moves all extremities Results - Labs CBC & Chem 7: 04/24/18 06:26 04/24/18 06:26 Labs: Laboratory Last Values WBC 23.7 K/mm3 (4.5-11.0) H 04/24/18 06:26 RBC 2.61 M/mm3 (3.65-5.03) L 04/24/18 06:26 Hgb 7.7 gm/dl (10.1-14.3) L 04/24/18 06:26 Hct 24.2 % (30.3-42.9) L 04/24/18 06:26 MCV 93 fl (79-97) 04/24/18 06:26 MCH 29 pg (28-32) 04/24/18 06:26 MCHC 32 % (30-34) 04/24/18 06:26 RDW 18.3 % (13.2-15.2) H 04/24/18 06:26 Plt Count 155 K/mm3 (140-440) 04/24/18 06:26 Lymph % (Auto) Hospice Patient Care Secretary 04/24/18 06:26 [place] % (Auto) Hospice Patient Care Secretary 04/24/18 06:26 Eos % (Auto) Hospice Patient Care Secretary 04/24/18 06:26 Baso % (Auto) Hospice Patient Care Secretary 04/24/18 06:26 Lymph # Hospice Patient Care Secretary 04/24/18 06:26 [place] # Hospice Patient Care Secretary 04/24/18 06:26 Eos # Hospice Patient Care Secretary 04/24/18 06:26 Baso # Hospice Patient Care Secretary 04/24/18 06:26 Add Manual Diff Complete 04/24/18 06:26 Total Counted 100 04/24/18 06:26 Seg Neutrophils % Hospice Patient Care Secretary 04/24/18 06:26 Seg Neuts % (Manual) 80.0 % (40.0-70.0) H 04/24/18 06:26 Band Neutrophils % 2.0 % 04/24/18 06:26 Lymphocytes % (Manual) 8.0 % (13.4-35.0) L 04/24/18 06:26 Reactive Lymphs % (Man) 1.0 % 04/24/18 06:26 Monocytes % (Manual) 8.0 % (0.0-7.3) H 04/24/18 06:26 Eosinophils % (Manual) 1.0 % (0.0-4.3) 04/24/18 06:26 Basophils % (Manual) 0 % (0.0-1.8) 04/24/18 06:26 Metamyelocytes % 0 % 04/24/18 06:26 Myelocytes % 0 % 04/24/18 06:26 Promyelocytes % 0 % 04/24/18 06:26 Blast Cells % 0 % 04/24/18 06:26 Nucleated RBC % Not Reportable 04/24/18 06:26 Seg Neutrophils # Hospice Patient Care Secretary 04/24/18 06:26 Seg Neutrophils # Man 19.0 K/mm3 (1.8-7.7) H 04/24/18 06:26 Band Neutrophils # 0.5 K/mm3 04/24/18 06:26 Lymphocytes # (Manual) 1.9 K/mm3 (1.2-5.4) 04/24/18 06:26 Abs React Lymphs (Man) 0.2 K/mm3 04/24/18 06:26 Monocytes # (Manual) 1.9 K/mm3 (0.0-0.8) H 04/24/18 06:26 Eosinophils # (Manual) 0.2 K/mm3 (0.0-0.4) 04/24/18 06:26 Basophils # (Manual) 0.0 K/mm3 (0.0-0.1) 04/24/18 06:26 Metamyelocytes # 0.0 K/mm3 04/24/18 06:26 Myelocytes # 0.0 K/mm3 04/24/18 06:26 Promyelocytes # 0.0 K/mm3 04/24/18 06:26 Blast Cells # 0.0 K/mm3 04/24/18 06:26 WBC Morphology Not Reportable 04/24/18 06:26 Hypersegmented Neuts Not Reportable 04/24/18 06:26 Hyposegmented Neuts Not Reportable 04/24/18 06:26 Hypogranular Neuts Not Reportable 04/24/18 06:26 Smudge Cells Not Reportable 04/24/18 06:26 Toxic Granulation Not Reportable 04/24/18 06:26 Toxic Vacuolation Not Reportable 04/24/18 06:26 Dohle Bodies Not Reportable 04/24/18 06:26 Pelger-Huet Anomaly Not Reportable 04/24/18 06:26 Riccardo Rods Not Reportable 04/24/18 06:26 Platelet Estimate Consistent w auto 04/24/18 06:26 Clumped Platelets Not Reportable 04/24/18 06:26 Plt Clumps, EDTA Not Reportable 04/24/18 06:26 Large Platelets Not Reportable 04/24/18 06:26 Giant Platelets Not Reportable 04/24/18 06:26 Platelet Satelliting Not Reportable 04/24/18 06:26 Plt Morphology Comment Not Reportable 04/24/18 06:26 RBC Morphology Not Reportable 04/24/18 06:26 Dimorphic RBCs Not Reportable 04/24/18 06:26 Polychromasia Not Reportable 04/24/18 06:26 Hypochromasia 2+ 04/24/18 06:26 Poikilocytosis Not Reportable 04/24/18 06:26 Anisocytosis 1+ 04/24/18 06:26 Microcytosis Not Reportable 04/24/18 06:26 Macrocytosis 1+ 04/24/18 06:26 Spherocytes Not Reportable 04/24/18 06:26 Pappenheimer Bodies Not Reportable 04/24/18 06:26 Sickle Cells Not Reportable 04/24/18 06:26 Target Cells Not Reportable 04/24/18 06:26 Tear Drop Cells Not Reportable 04/24/18 06:26 Ovalocytes Not Reportable 04/24/18 06:26 Helmet Cells Not Reportable 04/24/18 06:26 Nick[place] Bodies Not Reportable 04/24/18 06:26 Holley Rings Not Reportable 04/24/18 06:26 [place] Cells Not Reportable 04/24/18 06:26 Bite Cells Not Reportable 04/24/18 06:26 Crenated Cell Not Reportable 04/24/18 06:26 Elliptocytes Not Reportable 04/24/18 06:26 Acanthocytes (Spur) Not Reportable 04/24/18 06:26 Rouleaux Not Reportable 04/24/18 06:26 Hemoglobin C Crystals Not Reportable 04/24/18 06:26 Schistocytes Not Reportable 04/24/18 06:26 Malaria parasites Not Reportable 04/24/18 06:26 Paul Bodies Not Reportable 04/24/18 06:26 Hem Pathologist Commnt No 04/24/18 06:26 Sodium 136 mmol/L (137-145) L 04/24/18 06:26 Potassium 3.9 mmol/L (3.6-5.0) 04/24/18 06:26 Chloride 94.3 mmol/L (98-107) L 04/24/18 06:26 Carbon Dioxide 24 mmol/L (22-30) 04/24/18 06:26 Anion Gap 22 mmol/L 04/24/18 06:26 BUN 28 mg/dL (7-17) H 04/24/18 06:26 Creatinine 5.8 mg/dL (0.7-1.2) H 04/24/18 06:26 Estimated GFR 9 ml/min 04/24/18 06:26 BUN/Creatinine Ratio 5 % 04/24/18 06:26 Glucose 185 mg/dL (65-100) H 04/24/18 06:26 POC Glucose 184 (70-105) H 04/24/18 06:34 Lactic Acid 1.00 mmol/L (0.7-2.0) 04/19/18 22:27 Calcium 8.4 mg/dL (8.4-10.2) 04/24/18 06:26 Troponin T 0.257 ng/mL (0.00-0.029) H* 04/19/18 12:04 NT-Pro-B Natriuret Pep > 49025 pg/mL (0-900) H 04/19/18 07:12 Triglycerides 292 mg/dL (2-149) H 04/19/18 07:12 Cholesterol 92 mg/dL (50-199) 04/19/18 07:12 LDL Cholesterol Direct 12 mg/dL (50-130) L 04/19/18 07:12 HDL Cholesterol 6 mg/dL (40-59) L 04/19/18 07:12 Cholesterol/HDL Ratio 15.33 % 04/19/18 07:12
[2018-04-24] MEDS ORDERED: AMIDATE IV ONE (13:00)
[2018-04-24] MEDS ORDERED: NACL 0.9% 100 ML IV PRN ×2 (14:19→17:50)
[2018-04-24] MEDS: MORPHINE IV PRN ×2 (14:21→22:06)
--- NOTE | 2018-04-24 15:54 | Magnetic Resonance Report ---
FINAL REPORT PROCEDURE: MR CERVICAL SPINE WO CON TECHNIQUE: Magnetic resonance imaging of the cervical spine was performed using standard pulse sequences without contrast material. HISTORY: pain COMPARISON: No prior studies are available for comparison. FINDINGS: Today's study is significantly limited due to motion artifact on most of the sequences. The region of the foramina magnum appears normal. There appears to be heterogeneous areas of increased T2 signal in the cervical spine at C4-5, C5-6 and C6-7. Gliosis in the cord is suspected. This appears to be greatest at C6-C7. The spinal canal at these levels appears significantly narrowed and I suspect there likely is cord compression secondary to degenerative disc disease with posterior osteophytic spurring and bulging or herniated discs although not seen well due to the motion artifact. Marked spinal stenosis appears to be present. Evaluation of the neural foramina is limited due to the motion artifact. IMPRESSION: Spinal stenosis appears to be present at multiple levels, as C4 to the C6-C7 level. There appears to be significant cord compression as well as mild gliosis although visualization is limited due to significant motion artifact. No fracture or subluxation is visualized
--- NOTE | 2018-04-24 16:04 | Magnetic Resonance Report ---
FINAL REPORT PROCEDURE: MR LUMBAR SPINE WO CON TECHNIQUE: Magnetic resonance imaging of the lumbar spine was performed using standard pulse sequences without contrast material. CPT 20924 HISTORY: pain COMPARISON: No prior studies are available for comparison. FINDINGS: There is a large Schmorl's node involving superior endplate of L2 anteriorly. No compression fractures are seen. Posterior elements are intact. L1-2: No significant abnormality . L2-3: Disc spaces well preserved. Mild facet arthritis visualized.. L3-4: Minimal diffuse posterior disc bulge. No focal disc herniation or spinal stenosis is visualized. Mild facet arthritis present bilaterally. L4-5: Spinal canal appears delete narrowed secondary to ligamentum flavum laxity mild diffuse disc bulge and mild to moderate facet arthritis.. L5-S1: There mild to moderate facet arthritis and mild ligamentum flavum laxity. Mild diffuse disc bulge is present. No focal disc herniation is seen. No spinal stenosis identified.. Other: None . IMPRESSION: Mild spinal stenosis L4-5 level secondary to facet arthritis ligamentum flavum laxity and diffuse disc bulge. Mild to moderate facet arthritis L5-S1 level with minimal diffuse disc bulge. There is no focal disc herniation present. Mild facet arthritis L3-4 level with minimal diffuse disc bulge. Mild facet arthritis L2-3 level. Large Schmorl's nodes seen superior endplate L2.
--- NOTE | 2018-04-24 16:11 | Magnetic Resonance Report ---
FINAL REPORT PROCEDURE: MR THORACIC SPINE WO CON TECHNIQUE: Magnetic resonance imaging of the thoracic spine was performed using standard pulse sequences without contrast material. CPT 60929 HISTORY: pain COMPARISON: No prior studies are available for comparison. FINDINGS: The signal intensity and height of the vertebral bodies appears normal. Disc spaces are well preserved. No focal disc herniation or spinal stenosis is visualized. The neural foramina bilaterally appear widely patent. IMPRESSION: Negative exam.
[2018-04-24] MEDS ORDERED: NACL 0.9 (PRIMING MACHINE ONLY DIALYSIS) MC ONE (18:31)
[2018-04-24] MEDS: PERCOCET 5/325 PO PRN (18:56)
[2018-04-24] MEDS: ANCEF/NS 1 GM/50 ML 1 GM/50 ML BAG IV SCH (22:07)
[2018-04-24] MEDS: LANTUS SUB-Q SCH (22:07)
[2018-04-25] MEDS: MORPHINE IV PRN ×3 (05:42→20:41)
[2018-04-25] MEDS: HumuLIN R SUB-Q SCH ×4 (08:00→22:55)
--- NOTE | 2018-04-25 08:36 | Progress Note ---
Assessment and Plan 1. ESRD: Cotinue HD three times a week. HD today. 2. Volume overload: 2 Lts of UF with hemodialysis today. 3. Hypotension. BP is better. 4. Sepsis. Staph bacteremia. S/p exchange of Tunnel dialysis catheter. 5. Anemia: Epogen with HD. 6. DM-2. Subjective Date of service: 04/25/18 Interval history: Patient is feeling ok. Objective - Vital Signs Vital signs: Vital Signs - 12hr 04/24/18 04/24/18 04/25/18 22:00 23:58 05:14 Temperature 98.1 F 98.8 F Pulse Rate 94 H 60 Respiratory 18 18 Rate Blood Pressure 125/60 108/58 O2 Sat by Pulse 100 91 Oximetry 04/25/18 04/25/18 07:37 08:07 Temperature 97.7 F Pulse Rate 92 H Respiratory 18 Rate Blood Pressure 146/72 O2 Sat by Pulse 100 95 Oximetry - General Appearance General appearance: well-developed, well-nourished, appears stated age, other ( no distress, left IJ tunnel catheter) EENT: ATNC, PERRL Neck: supple Respiratory: Present: Clear to Ascultation Cardiology: regular, S1S2, no murmurs Gastrointestinal: normoactive bowel sounds Integumentary: no rash, warm and dry Neurologic: no focal deficit, no asterixis, alert and oriented x3 Musculoskeletal: other (trace edema of both UEs noted, bilateral BKA) - Lab 04/25/18 15:30 04/25/18 15:30 Most recent lab results Calcium 8.4 mg/dL (8.4-10.2) 04/24/18 06:26
--- NOTE | 2018-04-25 10:07 | Progress Note ---
Assessment and Plan Assessment and plan: Generalized pain worse in the lower back - symptomatic management - CT abdomen and pelvis normal, CT thoracolumbar area normal -MRI lumbar spine does not reveal any evidence of discitis. Patient does have facet osteoarthritis at multiple levels. Sepsis. Etiology secondary to staph bacteremia. Infectious disease following. Continue IV vancomycin. Follow-up repeat surveillance blood cultures. Etiology likely secondary to line sepsis from hemodialysis catheter infection. Patient is status post PermCath exchange per IR. MRI is negative for discitis and echocardiogram is negative for endocarditis. Leukocytosis. Etiology secondary to sepsis. ESRD on hemodialysis. Continue hemodialysis per nephrology. Hyperkalemia -Resolved - Nephrology is following History of [place] - No specific complaints about chest pain - Patient has elevated troponin, but troponin was elevated all the time in her previous admissions, etiology secondary to ESRD Diabetes mellitus with hyperglycemia - Sliding scale insulin, Lantus daily at bedtime - ADA diet, Accu-Chek - Adjust insulin as needed Diabetic neuropathy. Continue Lyrica Bilateral BKA DVT prophylaxis - On heparin Disposition - Continue inpatient care History Interval history: 53-year-old -Burm[place] female with past medical history significant for end-stage renal disease on hemodialysis, [place], and bilateral BKA presented to the emergency department with complaints of generalized pain. Patient didn't finish her 's dialysis because of pain. In the ED patient has elevated WBC count, elevated troponin which is chronic. Patient was found to have sepsis likely secondary to line sepsis. Hospitalist Physical - Constitutional Vitals: Temp Pulse Resp BP Pulse Ox 97.7 F 92 H 18 146/72 95 04/25/18 07:37 04/25/18 07:37 04/25/18 07:37 04/25/18 07:37 04/25/18 08:07 General appearance: Present: no acute distress - EENT Eyes: Present: PERRL, EOM intact ENT: hearing intact, clear oral mucosa, dentition normal - Neck Neck: Present: supple, normal ROM - Respiratory Respiratory effort: normal Respiratory: bilateral: CTA - Cardiovascular Rhythm: regular Heart Sounds: Present: S1 & S2. Absent: gallop, rub - Extremities Extremities: no ischemia, No edema, Full ROM - Abdominal General gastrointestinal: soft, non-tender, non-distended, normal bowel sounds - Integumentary Integumentary: Present: clear, warm, dry - Neurologic Neurologic: CNII-XII intact, moves all extremities Results - Labs CBC & Chem 7: 04/24/18 06:26 04/24/18 06:26 Labs: Laboratory Last Values WBC 23.7 K/mm3 (4.5-11.0) H 04/24/18 06:26 RBC 2.61 M/mm3 (3.65-5.03) L 04/24/18 06:26 Hgb 7.7 gm/dl (10.1-14.3) L 04/24/18 06:26 Hct 24.2 % (30.3-42.9) L 04/24/18 06:26 MCV 93 fl (79-97) 04/24/18 06:26 MCH 29 pg (28-32) 04/24/18 06:26 MCHC 32 % (30-34) 04/24/18 06:26 RDW 18.3 % (13.2-15.2) H 04/24/18 06:26 Plt Count 155 K/mm3 (140-440) 04/24/18 06:26 Lymph % (Auto) Entertainment Lawyer 04/24/18 06:26 [place] % (Auto) Entertainment Lawyer 04/24/18 06:26 Eos % (Auto) Entertainment Lawyer 04/24/18 06:26 Baso % (Auto) Entertainment Lawyer 04/24/18 06:26 Lymph # Entertainment Lawyer 04/24/18 06:26 [place] # Entertainment Lawyer 04/24/18 06:26 Eos # Entertainment Lawyer 04/24/18 06:26 Baso # Entertainment Lawyer 04/24/18 06:26 Add Manual Diff Complete 04/24/18 06:26 Total Counted 100 04/24/18 06:26 Seg Neutrophils % Entertainment Lawyer 04/24/18 06:26 Seg Neuts % (Manual) 80.0 % (40.0-70.0) H 04/24/18 06:26 Band Neutrophils % 2.0 % 04/24/18 06:26 Lymphocytes % (Manual) 8.0 % (13.4-35.0) L 04/24/18 06:26 Reactive Lymphs % (Man) 1.0 % 04/24/18 06:26 Monocytes % (Manual) 8.0 % (0.0-7.3) H 04/24/18 06:26 Eosinophils % (Manual) 1.0 % (0.0-4.3) 04/24/18 06:26 Basophils % (Manual) 0 % (0.0-1.8) 04/24/18 06:26 Metamyelocytes % 0 % 04/24/18 06:26 Myelocytes % 0 % 04/24/18 06:26 Promyelocytes % 0 % 04/24/18 06:26 Blast Cells % 0 % 04/24/18 06:26 Nucleated RBC % Not Reportable 04/24/18 06:26 Seg Neutrophils # Entertainment Lawyer 04/24/18 06:26 Seg Neutrophils # Man 19.0 K/mm3 (1.8-7.7) H 04/24/18 06:26 Band Neutrophils # 0.5 K/mm3 04/24/18 06:26 Lymphocytes # (Manual) 1.9 K/mm3 (1.2-5.4) 04/24/18 06:26 Abs React Lymphs (Man) 0.2 K/mm3 04/24/18 06:26 Monocytes # (Manual) 1.9 K/mm3 (0.0-0.8) H 04/24/18 06:26 Eosinophils # (Manual) 0.2 K/mm3 (0.0-0.4) 04/24/18 06:26 Basophils # (Manual) 0.0 K/mm3 (0.0-0.1) 04/24/18 06:26 Metamyelocytes # 0.0 K/mm3 04/24/18 06:26 Myelocytes # 0.0 K/mm3 04/24/18 06:26 Promyelocytes # 0.0 K/mm3 04/24/18 06:26 Blast Cells # 0.0 K/mm3 04/24/18 06:26 WBC Morphology Not Reportable 04/24/18 06:26 Hypersegmented Neuts Not Reportable 04/24/18 06:26 Hyposegmented Neuts Not Reportable 04/24/18 06:26 Hypogranular Neuts Not Reportable 04/24/18 06:26 Smudge Cells Not Reportable 04/24/18 06:26 Toxic Granulation Not Reportable 04/24/18 06:26 Toxic Vacuolation Not Reportable 04/24/18 06:26 Dohle Bodies Not Reportable 04/24/18 06:26 Pelger-Huet Anomaly Not Reportable 04/24/18 06:26 Riccardo Rods Not Reportable 08/10/18 06:26 Platelet Estimate Consistent w auto 04/24/18 06:26 Clumped Platelets Not Reportable 04/24/18 06:26 Plt Clumps, EDTA Not Reportable 04/24/18 06:26 Large Platelets Not Reportable 04/24/18 06:26 Giant Platelets Not Reportable 04/24/18 06:26 Platelet Satelliting Not Reportable 04/24/18 06:26 Plt Morphology Comment Not Reportable 04/24/18 06:26 RBC Morphology Not Reportable 04/24/18 06:26 Dimorphic RBCs Not Reportable 04/24/18 06:26 Polychromasia Not Reportable 04/24/18 06:26 Hypochromasia 2+ 04/24/18 06:26 Poikilocytosis Not Reportable 04/24/18 06:26 Anisocytosis 1+ 04/24/18 06:26 Microcytosis Not Reportable 04/24/18 06:26 Macrocytosis 1+ 04/24/18 06:26 Spherocytes Not Reportable 04/24/18 06:26 Pappenheimer Bodies Not Reportable 04/24/18 06:26 Sickle Cells Not Reportable 04/24/18 06:26 Target Cells Not Reportable 04/24/18 06:26 Tear Drop Cells Not Reportable 04/24/18 06:26 Ovalocytes Not Reportable 04/24/18 06:26 Helmet Cells Not Reportable 04/24/18 06:26 [place] Bodies Not Reportable 04/24/18 06:26 [place] Rings Not Reportable 04/24/18 06:26 [place] Cells Not Reportable 04/24/18 06:26 Bite Cells Not Reportable 04/24/18 06:26 Crenated Cell Not Reportable 04/24/18 06:26 Elliptocytes Not Reportable 04/24/18 06:26 Acanthocytes (Spur) Not Reportable 04/24/18 06:26 Rouleaux Not Reportable 04/24/18 06:26 Hemoglobin C Crystals Not Reportable 04/24/18 06:26 Schistocytes Not Reportable 04/24/18 06:26 Malaria parasites Not Reportable 04/24/18 06:26 Paul Bodies Not Reportable 04/24/18 06:26 Hem Pathologist Commnt No 04/24/18 06:26 Sodium 136 mmol/L (137-145) L 04/24/18 06:26 Potassium 3.9 mmol/L (3.6-5.0) 04/24/18 06:26 Chloride 94.3 mmol/L (98-107) L 04/24/18 06:26 Carbon Dioxide 24 mmol/L (22-30) 04/24/18 06:26 Anion Gap 22 mmol/L 04/24/18 06:26 BUN 28 mg/dL (7-17) H 04/24/18 06:26 Creatinine 5.8 mg/dL (0.7-1.2) H 04/24/18 06:26 Estimated GFR 9 ml/min 04/24/18 06:26 BUN/Creatinine Ratio 5 % 04/24/18 06:26 Glucose 185 mg/dL (65-100) H 04/24/18 06:26 POC Glucose 180 (70-105) H 04/25/18 07:05 Lactic Acid 1.00 mmol/L (0.7-2.0) 04/19/18 22:27 Calcium 8.4 mg/dL (8.4-10.2) 04/24/18 06:26 Troponin T 0.257 ng/mL (0.00-0.029) H* 04/19/18 12:04 NT-Pro-B Natriuret Pep > 84213 pg/mL (0-900) H 04/19/18 07:12 Triglycerides 292 mg/dL (2-149) H 04/19/18 07:12 Cholesterol 92 mg/dL (50-199) 04/19/18 07:12 LDL Cholesterol Direct 12 mg/dL (50-130) L 04/19/18 07:12 HDL Cholesterol 6 mg/dL (40-59) L 04/19/18 07:12 Cholesterol/HDL Ratio 15.33 % 04/19/18 07:12
[2018-04-25] MEDS: SODIUM CHLORIDE FLUSH SYRINGE 10 ML IV SCH ×2 (10:18→22:00)
[2018-04-25] MEDS: RENVELA PO SCH ×3 (10:19→18:16)
[2018-04-25] MEDS ORDERED: NACL 0.9% 100 ML IV PRN (12:13)
[2018-04-25] MEDS: ZOFRAN IV PRN (12:42)
[2018-04-25] MEDS: CARAFATE PO SCH ×2 (15:23→22:37)
[2018-04-25] MEDS: IMDUR PO SCH (15:23)
[2018-04-25] MEDS: ECOTRIN PO SCH (15:23)
[2018-04-25] MEDS: LOPRESSOR PO SCH ×2 (15:24→22:51)
[2018-04-25] MEDS: LYRICA PO SCH ×2 (15:24→22:45)
[2018-04-25] MEDS: MOBIC PO SCH (15:25)
[2018-04-25] MEDS: PROTONIX PO SCH (15:25)
[2018-04-25] MEDS: Renal Caps PO SCH (15:26)
[2018-04-25 16:12] LABS: Calcium 8.3 mg/dL (8.4-10.2)
[2018-04-25 16:25] LABS: Hematocrit 22.6 % (30.3-42.9); Hemoglobin 7.3 gm/dl (10.1-14.3); Mean Corpuscular HGB Conc 33 % (30-34); Mean Corpuscular Hemoglobin 30 pg (28-32); Mean Corpuscular Volume 93 fl (79-97); Platelet Count 180 K/mm3 (140-440); Red Blood Count 2.43 M/mm3 (3.65-5.03); Red Cell Distribution Width 18.1 % (13.2-15.2)
[2018-04-25 17:21] LABS: Band Neutrophils # (Manual) 0.6 K/mm3; Eosinophils % (Manual) 0 % (0.0-4.3); Total Cells Counted 100
[2018-04-25 17:22] LABS: Anisocytosis 1+; Hypochromasia 2+; Macrocytosis 1+; Ovalocytes Few; Platelet Estimate Consistent w Auto; Target Cells 1+
[2018-04-25] MEDS ORDERED: NACL 0.9 (PRIMING MACHINE ONLY DIALYSIS) MC ONE ×2 (17:49→20:36)
--- NOTE | 2018-04-25 20:30 | Progress Note ---
Assessment and Plan Assessment: 1)Staphylococcus aureus (MSSA) bacteremia. Possible sources hemodialysis catheter infection, -blood cx 04/19 MSSA -blood cx 04/22 ngtd -AUDREY no vegetations -cath removed 04/23 tip ngtd -MRI thoracic neg 2)Acute leukocytosis. Trending up. 3)End-stage renal disease on hemodialysis via L upper chest HD catheter 4)Thrombocytopenia. Better. 5) s/p Bilateral AKA 6)DM 7) All: azithromycin, bactrim 8) Severe left neck and shoulder pain ? -MRI cervical showed significant spinal stenosis multilevel C4-C7 with cord compression and mild gliosis from DJD, no abscess seen Plan: -left shoulder XR r/o effusion -neurosurgical or spinal surgery eval in light of cervical MRI findings. -Continue cefazolin. -Will f/u catheteter tip culture. -CRP -IV cefazolin duration 4 weeks Thank you for your consultation, will follow up with you. Nahed Vasquez MD Infectious Diseases Specialist [facility] ([facility] Subjective Date of service: 04/25/18 Principal diagnosis: MSSA bactereia Interval history: Remains afebrile, c/o severe left sided neck pain and left shoulder pain. Microbiology: Blood cultures: 04/19 S aureus (MSSA) 04/22 ngtd Cath tip ngtd Current Antimicrobials: Cefazolin 04/22- Previous Antimicrobials: Zosyn 04/19-04/22 Vancomycin 04/19- Objective - Exam Narrative Exam: General appearance: Pt in NAD. A&ox3. Eyes: anicteric sclerae, moist conjunctivae; PERRLA HENT: Atraumatic; oropharynx clear with moist mucous membranes and no mucosal ulcerations/no oral thrush; normal hard and soft palate. Normal external ears. Neck: Trachea midline; supple, no thyromegaly or lymphadenopathy Lungs: CTA, with normal respiratory effort and no intercostal retractions CV:S1,S2 Abdomen: Soft, non-tender; no masses or hepatosplenomegaly Extremities: B BKA, stumps well healed. Skin: No rash. Psych: Appropriate affect, alert and oriented to person, place and time. Neuro: alert and oriented x 3. Grossly non-focal. Lines: L upper chest HD catheter (exchange 04/23). - Constitutional Vitals: Vital Signs Temp Pulse Resp BP Pulse Ox 99.1 F 110 H 18 147/64 97 04/25/18 19:21 04/25/18 19:21 04/25/18 19:20 04/25/18 19:21 04/25/18 19:21 Temperature -Last 24 Hours Temperature 99.1 F Temperature 99.1 F Temperature 98.1 F Temperature 98.9 F Temperature 98.4 F Temperature 98.2 F Temperature 97.7 F Temperature 98.8 F Temperature 98.1 F - Labs CBC & Chem 7: 04/25/18 15:30 04/25/18 15:30 Labs: Abnormal lab results 04/24/18 04/25/18 04/25/18 Range/Units 22:02 07:05 11:32 WBC (4.5-11.0) K/mm3 RBC (3.65-5.03) M/mm3 Hgb (10.1-14.3) gm/dl Hct (30.3-42.9) % RDW (13.2-15.2) % Seg Neuts % (Manual) (40.0-70.0) % Lymphocytes % (Manual) (13.4-35.0) % Monocytes % (Manual) (0.0-7.3) % Seg Neutrophils # Man (1.8-7.7) K/mm3 Monocytes # (Manual) (0.0-0.8) K/mm3 Basophils # (Manual) (0.0-0.1) K/mm3 Sodium (137-145) mmol/L Chloride (98-107) mmol/L BUN (7-17) mg/dL Creatinine (0.7-1.2) mg/dL Glucose (65-100) mg/dL POC Glucose 437 H 180 H 179 H (70-105) Calcium (8.4-10.2) mg/dL 04/25/18 04/25/18 Range/Units 15:30 15:30 WBC 20.7 H (4.5-11.0) K/mm3 RBC 2.43 L (3.65-5.03) M/mm3 Hgb 7.3 L (10.1-14.3) gm/dl Hct 22.6 L (30.3-42.9) % RDW 18.1 H (13.2-15.2) % Seg Neuts % (Manual) 82.0 H (40.0-70.0) % Lymphocytes % (Manual) 6.0 L (13.4-35.0) % Monocytes % (Manual) 8.0 H (0.0-7.3) % Seg Neutrophils # Man 17.0 H (1.8-7.7) K/mm3 Monocytes # (Manual) 1.7 H (0.0-0.8) K/mm3 Basophils # (Manual) 0.2 H (0.0-0.1) K/mm3 Sodium 129 L D (137-145) mmol/L Chloride 89.2 L (98-107) mmol/L BUN 42 H (7-17) mg/dL Creatinine 7.4 H (0.7-1.2) mg/dL Glucose 162 H (65-100) mg/dL POC Glucose (70-105) Calcium 8.3 L (8.4-10.2) mg/dL
--- NOTE | 2018-04-25 21:58 | XRay Report ---
FINAL REPORT PROCEDURE: XR SHOULDER 2+V LT TECHNIQUE: Left shoulder radiographs including AP views in internal and external rotation and abduction. CPT 30445 HISTORY: eval for effusion COMPARISON: No prior studies are available for comparison. FINDINGS: Fracture (s) and/or Dislocation(s): None . Joint space(s): Normal . Soft tissues: Normal . Bone mineralization: Normal . Foreign bodies: None . IMPRESSION: Normal Examination
[2018-04-25] MEDS: LANTUS SUB-Q SCH (22:52)
[2018-04-25] MEDS: ANCEF/NS 1 GM/50 ML 1 GM/50 ML BAG IV SCH (22:56)
[2018-04-26] MEDS: SODIUM CHLORIDE FLUSH SYRINGE 10 ML IV SCH ×2 (00:12→18:23)
[2018-04-26] MEDS: HumuLIN R SUB-Q SCH ×4 (07:45→23:28)
[2018-04-26] MEDS: MORPHINE IV PRN ×2 (07:59→23:29)
[2018-04-26] MEDS: RENVELA PO SCH ×4 (08:00→18:50)
[2018-04-26] MEDS: CARAFATE PO SCH ×2 (09:02→22:15)
[2018-04-26] MEDS: MOBIC PO SCH (09:02)
[2018-04-26] MEDS: IMDUR PO SCH (09:02)
[2018-04-26] MEDS: Renal Caps PO SCH (09:03)
[2018-04-26] MEDS: ECOTRIN PO SCH (09:04)
[2018-04-26] MEDS: LYRICA PO SCH (09:04)
[2018-04-26] MEDS: LOPRESSOR PO SCH ×2 (09:04→22:18)
[2018-04-26] MEDS: PROTONIX PO SCH (09:04)
[2018-04-26 09:12] LABS: Hematocrit 22.2 % (30.3-42.9); Hemoglobin 7.2 gm/dl (10.1-14.3); Mean Corpuscular HGB Conc 33 % (30-34); Mean Corpuscular Hemoglobin 30 pg (28-32); Mean Corpuscular Volume 93 fl (79-97); Platelet Count 210 K/mm3 (140-440); Red Blood Count 2.39 M/mm3 (3.65-5.03); Red Cell Distribution Width 18.4 % (13.2-15.2)
[2018-04-26 09:13] LABS: Calcium 8.4 mg/dL (8.4-10.2)
[2018-04-26 10:23] LABS: Basophils % (Manual) 0 % (0.0-1.8); Eosinophils % (Manual) 1.5 % (0.0-4.3); Total Cells Counted 200
[2018-04-26 10:24] LABS: Anisocytosis 1+; Hypochromasia 1+; Stomatocytes 1+; Target Cells Few
[2018-04-26 10:25] LABS: Large Platelets Few; Platelet Estimate Cons
--- NOTE | 2018-04-26 10:47 | Progress Note ---
Assessment and Plan Assessment and plan: Left neck and shoulder pain. -MRI lumbar spine does not reveal any evidence of discitis. Patient does have facet osteoarthritis at multiple levels. Also, MRI reveals significant spinal stenosis multilevel C4 through C7 with cord compression and mild DJD from gliosis. Outpatient neurosurgery follow-up. Sepsis. Etiology secondary to staph bacteremia. Infectious disease following. Continue IV vancomycin. Follow-up repeat surveillance blood cultures. Etiology likely secondary to line sepsis from hemodialysis catheter infection. Patient is status post PermCath exchange per IR. MRI is negative for discitis and echocardiogram is negative for endocarditis. Leukocytosis. Etiology secondary to sepsis. ESRD on hemodialysis. Continue hemodialysis per nephrology. Hyperkalemia -Resolved - Nephrology is following History of [place] - No specific complaints about chest pain - Patient has elevated troponin, but troponin was elevated all the time in her previous admissions, etiology secondary to ESRD Diabetes mellitus with hyperglycemia - Sliding scale insulin, Lantus daily at bedtime - ADA diet, Accu-Chek - Adjust insulin as needed Diabetic neuropathy. Continue Lyrica Bilateral BKA DVT prophylaxis - On heparin Disposition - Continue inpatient care. LTAC evaluation for long-term antibiotics. History Interval history: 53-year-old -Gibralt[place] female with past medical history significant for end-stage renal disease on hemodialysis, [place], and bilateral BKA presented to the emergency department with complaints of generalized pain. Patient didn't finish her 's dialysis because of pain. In the ED patient has elevated WBC count, elevated troponin which is chronic. Patient was found to have sepsis likely secondary to line sepsis. Hospitalist Physical - Constitutional Vitals: Temp Pulse Resp BP Pulse Ox 98.3 F 96 H 18 138/67 100 04/26/18 08:00 04/26/18 09:04 04/26/18 08:00 04/26/18 08:00 04/26/18 08:00 General appearance: Present: no acute distress - EENT Eyes: Present: PERRL, EOM intact ENT: hearing intact, clear oral mucosa, dentition normal - Neck Neck: Present: supple, normal ROM - Respiratory Respiratory effort: normal Respiratory: bilateral: CTA - Cardiovascular Rhythm: regular Heart Sounds: Present: S1 & S2. Absent: gallop, rub - Extremities Extremities: no ischemia, No edema, Full ROM - Abdominal General gastrointestinal: soft, non-tender, non-distended, normal bowel sounds - Integumentary Integumentary: Present: clear, warm, dry - Neurologic Neurologic: CNII-XII intact, moves all extremities Results - Labs CBC & Chem 7: 04/26/18 08:07 04/26/18 08:07 Labs: Laboratory Last Values WBC 20.7 K/mm3 (4.5-11.0) H 04/26/18 08:07 RBC 2.39 M/mm3 (3.65-5.03) L 04/26/18 08:07 Hgb 7.2 gm/dl (10.1-14.3) L 04/26/18 08:07 Hct 22.2 % (30.3-42.9) L 04/26/18 08:07 MCV 93 fl (79-97) 04/26/18 08:07 MCH 30 pg (28-32) 04/26/18 08:07 MCHC 33 % (30-34) 04/26/18 08:07 RDW 18.4 % (13.2-15.2) H 04/26/18 08:07 Plt Count 210 K/mm3 (140-440) 04/26/18 08:07 Lymph % (Auto) Foreclosure Clerk 04/25/18 15:30 [place] % (Auto) Foreclosure Clerk 04/25/18 15:30 Eos % (Auto) Foreclosure Clerk 04/25/18 15:30 Baso % (Auto) Foreclosure Clerk 04/25/18 15:30 Lymph # Foreclosure Clerk 04/25/18 15:30 [place] # Foreclosure Clerk 04/25/18 15:30 Eos # Foreclosure Clerk 04/25/18 15:30 Baso # Foreclosure Clerk 04/25/18 15:30 Add Manual Diff Complete 04/26/18 08:07 Total Counted 200 04/26/18 08:07 Seg Neutrophils % Foreclosure Clerk 04/25/18 15:30 Seg Neuts % (Manual) 83.0 % (40.0-70.0) H 04/26/18 08:07 Band Neutrophils % 0 % 04/26/18 08:07 Lymphocytes % (Manual) 7.5 % (13.4-35.0) L 04/26/18 08:07 Reactive Lymphs % (Man) 0.5 % 04/26/18 08:07 Monocytes % (Manual) 7.0 % (0.0-7.3) 04/26/18 08:07 Eosinophils % (Manual) 1.5 % (0.0-4.3) 04/26/18 08:07 Basophils % (Manual) 0 % (0.0-1.8) 04/26/18 08:07 Metamyelocytes % 0.5 % 04/26/18 08:07 Myelocytes % 0 % 04/26/18 08:07 Promyelocytes % 0 % 04/26/18 08:07 Blast Cells % 0 % 04/26/18 08:07 Nucleated RBC % Not Reportable 04/26/18 08:07 Seg Neutrophils # Foreclosure Clerk 04/25/18 15:30 Seg Neutrophils # Man 17.2 K/mm3 (1.8-7.7) H 04/26/18 08:07 Band Neutrophils # 0.0 K/mm3 04/26/18 08:07 Lymphocytes # (Manual) 1.6 K/mm3 (1.2-5.4) 04/26/18 08:07 Abs React Lymphs (Man) 0.1 K/mm3 04/26/18 08:07 Monocytes # (Manual) 1.4 K/mm3 (0.0-0.8) H 04/26/18 08:07 Eosinophils # (Manual) 0.3 K/mm3 (0.0-0.4) 04/26/18 08:07 Basophils # (Manual) 0.0 K/mm3 (0.0-0.1) 04/26/18 08:07 Metamyelocytes # 0.1 K/mm3 04/26/18 08:07 Myelocytes # 0.0 K/mm3 04/26/18 08:07 Promyelocytes # 0.0 K/mm3 04/26/18 08:07 Blast Cells # 0.0 K/mm3 04/26/18 08:07 WBC Morphology Not Reportable 04/26/18 08:07 Hypersegmented Neuts Not Reportable 04/26/18 08:07 Hyposegmented Neuts Not Reportable 04/26/18 08:07 Hypogranular Neuts Not Reportable 04/26/18 08:07 Smudge Cells Not Reportable 04/26/18 08:07 Toxic Granulation Not Reportable 04/26/18 08:07 Toxic Vacuolation Not Reportable 04/26/18 08:07 Dohle Bodies Not Reportable 04/26/18 08:07 Pelger-Huet Anomaly Not Reportable 04/26/18 08:07 Riccardo Rods Not Reportable 04/26/18 08:07 Platelet Estimate Cons 04/26/18 08:07 Clumped Platelets Not Reportable 04/26/18 08:07 Plt Clumps, EDTA Not Reportable 04/26/18 08:07 Large Platelets Few 04/26/18 08:07 Giant Platelets Not Reportable 04/26/18 08:07 Platelet Satelliting Not Reportable 04/26/18 08:07 Plt Morphology Comment Not Reportable 04/26/18 08:07 RBC Morphology Not Reportable 04/26/18 08:07 Dimorphic RBCs Not Reportable 04/26/18 08:07 Polychromasia Not Reportable 04/26/18 08:07 Hypochromasia 1+ 04/26/18 08:07 Poikilocytosis Not Reportable 04/26/18 08:07 Anisocytosis 1+ 04/26/18 08:07 Microcytosis Not Reportable 04/26/18 08:07 Macrocytosis Not Reportable 04/26/18 08:07 Spherocytes Not Reportable 04/26/18 08:07 Pappenheimer Bodies Not Reportable 04/26/18 08:07 Sickle Cells Not Reportable 04/26/18 08:07 Target Cells Few 04/26/18 08:07 Tear Drop Cells Not Reportable 04/26/18 08:07 Ovalocytes Not Reportable 04/26/18 08:07 Stomatocytes 1+ 04/26/18 08:07 Helmet Cells Not Reportable 04/26/18 08:07 Nick[place] Bodies Not Reportable 04/26/18 08:07 [place] Rings Not Reportable 04/26/18 08:07 [place] Cells Not Reportable 04/26/18 08:07 Bite Cells Not Reportable 04/26/18 08:07 Crenated Cell Not Reportable 04/26/18 08:07 Elliptocytes Not Reportable 04/26/18 08:07 Acanthocytes (Spur) Not Reportable 04/26/18 08:07 Rouleaux Not Reportable 04/26/18 08:07 Hemoglobin C Crystals Not Reportable 04/26/18 08:07 Schistocytes Not Reportable 04/26/18 08:07 Malaria parasites Not Reportable 04/26/18 08:07 Paul Bodies Not Reportable 04/26/18 08:07 Hem Pathologist Commnt No 04/26/18 08:07 Sodium 131 mmol/L (137-145) L 04/26/18 08:07 Potassium 3.9 mmol/L (3.6-5.0) 04/26/18 08:07 Chloride 90.4 mmol/L (98-107) L 04/26/18 08:07 Carbon Dioxide 25 mmol/L (22-30) 04/26/18 08:07 Anion Gap 20 mmol/L 04/26/18 08:07 BUN 21 mg/dL (7-17) H 04/26/18 08:07 Creatinine 4.8 mg/dL (0.7-1.2) H 04/26/18 08:07 Estimated GFR 12 ml/min 04/26/18 08:07 BUN/Creatinine Ratio 4 % 04/26/18 08:07 Glucose 96 mg/dL (65-100) 04/26/18 08:07 POC Glucose 68 (70-105) L 04/26/18 06:43 Lactic Acid 1.00 mmol/L (0.7-2.0) 04/19/18 22:27 Calcium 8.4 mg/dL (8.4-10.2) 04/26/18 08:07 Troponin T 0.257 ng/mL (0.00-0.029) H* 04/19/18 12:04 C-Reactive Protein 29.90 mg/dL (0.00-1.30) H 04/25/18 23:01 NT-Pro-B Natriuret Pep > 50853 pg/mL (0-900) H 04/19/18 07:12 Triglycerides 292 mg/dL (2-149) H 04/19/18 07:12 Cholesterol 92 mg/dL (50-199) 04/19/18 07:12 LDL Cholesterol Direct 12 mg/dL (50-130) L 04/19/18 07:12 HDL Cholesterol 6 mg/dL (40-59) L 04/19/18 07:12 Cholesterol/HDL Ratio 15.33 % 04/19/18 07:12
--- NOTE | 2018-04-26 11:31 | Progress Note ---
Assessment and Plan 1. ESRD: Cotinue HD three times a week. Last dialyzed yesterday. 2. Volume overload: Improved. 3. Hypotension. BP is better. 4. Sepsis. MSSA bacteremia. S/p exchange of Tunnel dialysis catheter. Followed by ID. 5. Anemia: Epogen with HD. 6. DM-2. Subjective Date of service: 04/26/18 Principal diagnosis: MSSA bactereia Interval history: Patient is feeling ok. Objective - Vital Signs Vital signs: Vital Signs - 12hr 04/26/18 04/26/18 04/26/18 04:06 08:00 09:02 Temperature 98.3 F Pulse Rate 91 H 93 H 96 H Respiratory 18 Rate Blood Pressure 105/50 138/67 O2 Sat by Pulse 96 100 Oximetry 04/26/18 09:04 Temperature Pulse Rate 96 H Respiratory Rate Blood Pressure O2 Sat by Pulse Oximetry - General Appearance General appearance: well-developed, well-nourished, appears stated age, other ( no distress) EENT: ATNC, PERRL Neck: supple Respiratory: Present: Clear to Ascultation Cardiology: regular, S1S2, no murmurs Gastrointestinal: normoactive bowel sounds, no tenderness Integumentary: no rash, warm and dry Neurologic: no focal deficit, no asterixis, alert and oriented x3 Musculoskeletal: other (trace bilateral UE edema noted) - Lab 04/26/18 08:07 04/26/18 08:07 Most recent lab results Calcium 8.4 mg/dL (8.4-10.2) 04/26/18 08:07
[2018-04-26] MEDS: ZOFRAN IV PRN (18:23)
[2018-04-26] MEDS: PERCOCET 5/325 PO PRN (18:25)
[2018-04-26] MEDS ORDERED: MIRALAX 3350 PO PRN (19:06)
[2018-04-26] MEDS: ANCEF/NS 1 GM/50 ML 1 GM/50 ML BAG IV SCH (22:15)
[2018-04-26] MEDS: LANTUS SUB-Q SCH (23:27)
[2018-04-27 06:16] LABS: Basophils # (Auto) 0.1 K/mm3 (0.0-0.1); Basophils % (Auto) 0.6 % (0.0-1.8); Eosinophils # (Auto) 0.2 K/mm3 (0.0-0.4); Hematocrit 22.5 % (30.3-42.9); Hemoglobin 7.2 gm/dl (10.1-14.3); Lymphocytes # (Auto) 2.3 K/mm3 (1.2-5.4); Lymphocytes % (Auto) 12.4 % (13.4-35.0); Mean Corpuscular HGB Conc 32 % (30-34); Mean Corpuscular Hemoglobin 30 pg (28-32); Mean Corpuscular Volume 93 fl (79-97); Monocytes # (Auto) 1.6 K/mm3 (0.0-0.8); Monocytes % (Auto) 8.9 % (0.0-7.3); Platelet Count 237 K/mm3 (140-440); Red Blood Count 2.41 M/mm3 (3.65-5.03); Red Cell Distribution Width 18.8 % (13.2-15.2)
[2018-04-27 06:47] LABS: Calcium 8.6 mg/dL (8.4-10.2)
[2018-04-27] MEDS: MORPHINE IV PRN ×2 (07:00→23:48)
[2018-04-27] MEDS: RENVELA PO SCH ×3 (08:00→17:37)
[2018-04-27] MEDS: PROTONIX PO SCH (10:00)
[2018-04-27] MEDS: Renal Caps PO SCH (10:00)
--- NOTE | 2018-04-27 10:04 | Progress Note ---
Assessment and Plan 1. ESRD: Cotinue HD three times a week. 2. Volume overload: Improved. 3. Hypotension. BP is better. 4. Sepsis. MSSA bacteremia. S/p exchange of Tunnel dialysis catheter. Followed by ID. 5. Anemia: Epogen. 6. DM-2. Subjective Date of service: 04/27/18 Principal diagnosis: MSSA bactereia Interval history: Patient was seen and examined while on HD. Objective - Vital Signs Vital signs: Vital Signs - 12hr 04/27/18 04/27/18 04/27/18 00:41 04:51 07:27 Temperature 98.2 F 98.4 F 97.9 F Pulse Rate 87 80 89 Respiratory 16 16 18 Rate Blood Pressure 105/50 119/61 141/56 O2 Sat by Pulse 92 96 94 Oximetry - General Appearance General appearance: well-developed, appears stated age, other (no distress, left IJ tunnel catheter) EENT: ATNC, PERRL, hearing intact, vision intact Neck: supple Respiratory: Present: Clear to Ascultation Cardiology: regular, S1S2, no murmurs Gastrointestinal: normoactive bowel sounds, no tenderness Integumentary: no rash, warm and dry Neurologic: no focal deficit, no asterixis, alert and oriented x3 Musculoskeletal: other (no edema, bilateral BKA) Psychiatric: cooperative - Lab 04/27/18 04:52 04/27/18 04:52 Most recent lab results Calcium 8.6 mg/dL (8.4-10.2) 04/27/18 04:52
--- NOTE | 2018-04-27 10:50 | Progress Note ---
Assessment and Plan Assessment and plan: Left neck and shoulder pain. -MRI lumbar spine does not reveal any evidence of discitis. Patient does have facet osteoarthritis at multiple levels. Also, MRI reveals significant spinal stenosis multilevel C4 through C7 with cord compression and mild DJD from gliosis. Outpatient neurosurgery follow-up. Sepsis. Etiology secondary to staph bacteremia. Infectious disease following. Continue IV Cefazolin. Follow-up repeat surveillance blood cultures. Etiology likely secondary to line sepsis from hemodialysis catheter infection. Patient is status post PermCath exchange per IR. MRI is negative for discitis and echocardiogram is negative for endocarditis. Leukocytosis. Etiology secondary to sepsis. ESRD on hemodialysis. Continue hemodialysis per nephrology. Hyperkalemia - Resolved - Nephrology is following History of [place] - No specific complaints about chest pain - Patient has elevated troponin, but troponin was elevated all the time in her previous admissions, etiology secondary to ESRD Diabetes mellitus with hyperglycemia - Sliding scale insulin, Lantus daily at bedtime - ADA diet, Accu-Chek - Adjust insulin as needed Diabetic neuropathy. Continue Lyrica Bilateral AKA Thrombocytopenia. Etiology secondary to sepsis. Follow-up CBC. Drug allergy: Azithromycin, Bactrim DVT prophylaxis - On heparin Disposition - Continue inpatient care. LTAC evaluation for long-term antibiotics. History Interval history: 53-year-old -[place]ic female with past medical history significant for end-stage renal disease on hemodialysis, [place], and bilateral BKA presented to the emergency department with complaints of generalized pain. Patient didn't finish her 's dialysis because of pain. In the ED patient has elevated WBC count, elevated troponin which is chronic. Patient was found to have sepsis likely secondary to line sepsis. Hospitalist Physical - Constitutional Vitals: Temp Pulse Resp BP Pulse Ox 97.9 F 89 18 141/56 94 04/27/18 07:27 04/27/18 07:27 04/27/18 07:27 04/27/18 07:27 04/27/18 07:27 General appearance: Present: no acute distress - EENT Eyes: Present: PERRL, EOM intact ENT: hearing intact, clear oral mucosa, dentition normal - Neck Neck: Present: supple, normal ROM - Respiratory Respiratory effort: normal Respiratory: bilateral: CTA - Cardiovascular Rhythm: regular Heart Sounds: Present: S1 & S2. Absent: gallop, rub - Extremities Extremities: no ischemia, No edema, Full ROM - Abdominal General gastrointestinal: soft, non-tender, non-distended, normal bowel sounds - Integumentary Integumentary: Present: clear, warm, dry - Neurologic Neurologic: CNII-XII intact, moves all extremities Results - Labs CBC & Chem 7: 04/27/18 04:52 04/27/18 04:52 Labs: Laboratory Last Values WBC 18.3 K/mm3 (4.5-11.0) H 04/27/18 04:52 RBC 2.41 M/mm3 (3.65-5.03) L 04/27/18 04:52 Hgb 7.2 gm/dl (10.1-14.3) L 04/27/18 04:52 Hct 22.5 % (30.3-42.9) L 04/27/18 04:52 MCV 93 fl (79-97) 04/27/18 04:52 MCH 30 pg (28-32) 04/27/18 04:52 MCHC 32 % (30-34) 04/27/18 04:52 RDW 18.8 % (13.2-15.2) H 04/27/18 04:52 Plt Count 237 K/mm3 (140-440) 04/27/18 04:52 Lymph % (Auto) 12.4 % (13.4-35.0) L 04/27/18 04:52 [place] % (Auto) 8.9 % (0.0-7.3) H 04/27/18 04:52 Eos % (Auto) 1.0 % (0.0-4.3) 04/27/18 04:52 Baso % (Auto) 0.6 % (0.0-1.8) 04/27/18 04:52 Lymph # 2.3 K/mm3 (1.2-5.4) 04/27/18 04:52 [place] # 1.6 K/mm3 (0.0-0.8) H 04/27/18 04:52 Eos # 0.2 K/mm3 (0.0-0.4) 04/27/18 04:52 Baso # 0.1 K/mm3 (0.0-0.1) 04/27/18 04:52 Add Manual Diff Complete 04/26/18 08:07 Total Counted 200 04/26/18 08:07 Seg Neutrophils % 77.1 % (40.0-70.0) H 04/27/18 04:52 Seg Neuts % (Manual) 83.0 % (40.0-70.0) H 04/26/18 08:07 Band Neutrophils % 0 % 04/26/18 08:07 Lymphocytes % (Manual) 7.5 % (13.4-35.0) L 04/26/18 08:07 Reactive Lymphs % (Man) 0.5 % 04/26/18 08:07 Monocytes % (Manual) 7.0 % (0.0-7.3) 04/26/18 08:07 Eosinophils % (Manual) 1.5 % (0.0-4.3) 04/26/18 08:07 Basophils % (Manual) 0 % (0.0-1.8) 04/26/18 08:07 Metamyelocytes % 0.5 % 04/26/18 08:07 Myelocytes % 0 % 04/26/18 08:07 Promyelocytes % 0 % 04/26/18 08:07 Blast Cells % 0 % 04/26/18 08:07 Nucleated RBC % Not Reportable 04/26/18 08:07 Seg Neutrophils # 14.1 K/mm3 (1.8-7.7) H 04/27/18 04:52 Seg Neutrophils # Man 17.2 K/mm3 (1.8-7.7) H 04/26/18 08:07 Band Neutrophils # 0.0 K/mm3 04/26/18 08:07 Lymphocytes # (Manual) 1.6 K/mm3 (1.2-5.4) 04/26/18 08:07 Abs React Lymphs (Man) 0.1 K/mm3 04/26/18 08:07 Monocytes # (Manual) 1.4 K/mm3 (0.0-0.8) H 04/26/18 08:07 Eosinophils # (Manual) 0.3 K/mm3 (0.0-0.4) 04/26/18 08:07 Basophils # (Manual) 0.0 K/mm3 (0.0-0.1) 04/26/18 08:07 Metamyelocytes # 0.1 K/mm3 04/26/18 08:07 Myelocytes # 0.0 K/mm3 04/26/18 08:07 Promyelocytes # 0.0 K/mm3 04/26/18 08:07 Blast Cells # 0.0 K/mm3 04/26/18 08:07 WBC Morphology Not Reportable 04/26/18 08:07 Hypersegmented Neuts Not Reportable 04/26/18 08:07 Hyposegmented Neuts Not Reportable 04/26/18 08:07 Hypogranular Neuts Not Reportable 04/26/18 08:07 Smudge Cells Not Reportable 04/26/18 08:07 Toxic Granulation Not Reportable 04/26/18 08:07 Toxic Vacuolation Not Reportable 04/26/18 08:07 Dohle Bodies Not Reportable 04/26/18 08:07 Pelger-Huet Anomaly Not Reportable 04/26/18 08:07 Riccardo Rods Not Reportable 04/26/18 08:07 Platelet Estimate Cons 04/26/18 08:07 Clumped Platelets Not Reportable 04/26/18 08:07 Plt Clumps, EDTA Not Reportable 04/26/18 08:07 Large Platelets Few 04/26/18 08:07 Giant Platelets Not Reportable 04/26/18 08:07 Platelet Satelliting Not Reportable 04/26/18 08:07 Plt Morphology Comment Not Reportable 04/26/18 08:07 RBC Morphology Not Reportable 04/26/18 08:07 Dimorphic RBCs Not Reportable 04/26/18 08:07 Polychromasia Not Reportable 04/26/18 08:07 Hypochromasia 1+ 04/26/18 08:07 Poikilocytosis Not Reportable 04/26/18 08:07 Anisocytosis 1+ 04/26/18 08:07 Microcytosis Not Reportable 04/26/18 08:07 Macrocytosis Not Reportable 04/26/18 08:07 Spherocytes Not Reportable 04/26/18 08:07 Pappenheimer Bodies Not Reportable 04/26/18 08:07 Sickle Cells Not Reportable 04/26/18 08:07 Target Cells Few 04/26/18 08:07 Tear Drop Cells Not Reportable 04/26/18 08:07 Ovalocytes Not Reportable 04/26/18 08:07 Stomatocytes 1+ 04/26/18 08:07 Helmet Cells Not Reportable 04/26/18 08:07 [place] Bodies Not Reportable 04/26/18 08:07 [place] Rings Not Reportable 04/26/18 08:07 Bharath Cells Not Reportable 04/26/18 08:07 Bite Cells Not Reportable 04/26/18 08:07 Crenated Cell Not Reportable 04/26/18 08:07 Elliptocytes Not Reportable 04/26/18 08:07 Acanthocytes (Spur) Not Reportable 04/26/18 08:07 Rouleaux Not Reportable 04/26/18 08:07 Hemoglobin C Crystals Not Reportable 04/26/18 08:07 Schistocytes Not Reportable 04/26/18 08:07 Malaria parasites Not Reportable 04/26/18 08:07 Paul Bodies Not Reportable 04/26/18 08:07 Hem Pathologist Commnt No 04/26/18 08:07 Sodium 134 mmol/L (137-145) L 04/27/18 04:52 Potassium 3.9 mmol/L (3.6-5.0) 04/27/18 04:52 Chloride 91.0 mmol/L (98-107) L 04/27/18 04:52 Carbon Dioxide 25 mmol/L (22-30) 04/27/18 04:52 Anion Gap 22 mmol/L 04/27/18 04:52 BUN 33 mg/dL (7-17) H 04/27/18 04:52 Creatinine 6.4 mg/dL (0.7-1.2) H 04/27/18 04:52 Estimated GFR 8 ml/min 04/27/18 04:52 BUN/Creatinine Ratio 5 % 04/27/18 04:52 Glucose 97 mg/dL (65-100) 04/27/18 04:52 POC Glucose 111 (70-105) H 04/27/18 07:01 Lactic Acid 1.00 mmol/L (0.7-2.0) 04/19/18 22:27 Calcium 8.6 mg/dL (8.4-10.2) 04/27/18 04:52 Troponin T 0.257 ng/mL (0.00-0.029) H* 04/19/18 12:04 C-Reactive Protein 29.90 mg/dL (0.00-1.30) H 04/25/18 23:01 NT-Pro-B Natriuret Pep > 87229 pg/mL (0-900) H 04/19/18 07:12 Triglycerides 292 mg/dL (2-149) H 04/19/18 07:12 Cholesterol 92 mg/dL (50-199) 04/19/18 07:12 LDL Cholesterol Direct 12 mg/dL (50-130) L 04/19/18 07:12 HDL Cholesterol 6 mg/dL (40-59) L 04/19/18 07:12 Cholesterol/HDL Ratio 15.33 % 04/19/18 07:12
[2018-04-27] MEDS: HumuLIN R SUB-Q SCH ×3 (11:35→23:36)
[2018-04-27] MEDS: ECOTRIN PO SCH (11:37)
[2018-04-27] MEDS: CARAFATE PO SCH ×2 (11:37→22:15)
[2018-04-27] MEDS: IMDUR PO SCH (11:37)
[2018-04-27] MEDS: LOPRESSOR PO SCH ×2 (11:38→22:15)
[2018-04-27] MEDS: LYRICA PO SCH (11:39)
[2018-04-27] MEDS: MOBIC PO SCH (11:40)
[2018-04-27] MEDS: SODIUM CHLORIDE FLUSH SYRINGE 10 ML IV SCH ×2 (12:00→23:37)
--- NOTE | 2018-04-27 19:35 | Progress Note ---
Assessment and Plan Assessment: 1)Staphylococcus aureus (MSSA) bacteremia. Source hemodialysis catheter infection, -blood cx 04/19 MSSA -blood cx 04/22 neg -AUDREY no vegetations -cath removed 04/23 tip +MSSA -MRI thoracic neg -CRP=29 2)Acute leukocytosis. Trending down slowly 3)End-stage renal disease on hemodialysis via L upper chest HD catheter 4)Thrombocytopenia. Better. 5) s/p Bilateral AKA 6)DM 7) All: azithromycin, bactrim 8) Severe left neck and shoulder pain ? better -MRI cervical showed significant spinal stenosis multilevel C4-C7 with cord compression and mild gliosis from DJD, no abscess seen -XR shoulder normal Plan: -Continue cefazolin -neurosurgical or spinal surgery eval in light of cervical MRI findings per internal med -upon discharge will do cefazolin 2 g IV on HD Friday, 2 g IV on HD Friday, 3 g IV on HD Friday total 4 weeks until 05/21/18 -ID clinic f/u on 05/14 I am signing off Thank you for your consultation, will follow up with you. Nahed Vasquez MD Infectious Diseases Specialist [facility] Subjective Date of service: 04/27/18 Principal diagnosis: MSSA bactereia Interval history: Remains afebrile, denies left sided neck pain and left shoulder pain. Feels better watching TV Microbiology: Blood cultures: 04/19 S aureus (MSSA) 04/22 ngtd Cath tip ngtd Current Antimicrobials: Cefazolin 04/22- Previous Antimicrobials: Zosyn 04/19-04/22 Vancomycin 04/19- Objective - Exam Narrative Exam: General appearance: Pt in NAD. A&ox3. Eyes: anicteric sclerae, moist conjunctivae; PERRLA HENT: Atraumatic; oropharynx clear with moist mucous membranes and no mucosal ulcerations/no oral thrush; normal hard and soft palate. Normal external ears. Neck: Trachea midline; supple, no thyromegaly or lymphadenopathy Lungs: CTA, with normal respiratory effort and no intercostal retractions CV:S1,S2 Abdomen: Soft, non-tender; no masses or hepatosplenomegaly Extremities: B BKA, stumps well healed. Skin: No rash. Psych: Appropriate affect, alert and oriented to person, place and time. Neuro: alert and oriented x 3. Grossly non-focal. Lines: L upper chest HD catheter (exchange 04/23). - Constitutional Vitals: Vital Signs Temp Pulse Resp BP Pulse Ox 98.8 F 102 H 18 138/67 94 04/27/18 13:30 04/27/18 13:30 04/27/18 13:30 04/27/18 13:30 04/27/18 07:27 Temperature -Last 24 Hours Temperature 98.8 F Temperature 98.2 F Temperature 97.9 F Temperature 98.4 F Temperature 98.2 F Temperature 98.9 F - Labs CBC & Chem 7: 04/27/18 04:52 04/27/18 04:52 Labs: Abnormal lab results 04/26/18 04/27/18 04/27/18 Range/Units 22:34 04:52 04:52 WBC 18.3 H (4.5-11.0) K/mm3 RBC 2.41 L (3.65-5.03) M/mm3 Hgb 7.2 L (10.1-14.3) gm/dl Hct 22.5 L (30.3-42.9) % RDW 18.8 H (13.2-15.2) % Lymph % (Auto) 12.4 L (13.4-35.0) % [place] % (Auto) 8.9 H (0.0-7.3) % [place] # 1.6 H (0.0-0.8) K/mm3 Seg Neutrophils % 77.1 H (40.0-70.0) % Seg Neutrophils # 14.1 H (1.8-7.7) K/mm3 Sodium 134 L (137-145) mmol/L Chloride 91.0 L (98-107) mmol/L BUN 33 H (7-17) mg/dL Creatinine 6.4 H (0.7-1.2) mg/dL POC Glucose 217 H (70-105) 04/27/18 04/27/18 Range/Units 07:01 16:35 WBC (4.5-11.0) K/mm3 RBC (3.65-5.03) M/mm3 Hgb (10.1-14.3) gm/dl Hct (30.3-42.9) % RDW (13.2-15.2) % Lymph % (Auto) (13.4-35.0) % [place] % (Auto) (0.0-7.3) % [place] # (0.0-0.8) K/mm3 Seg Neutrophils % (40.0-70.0) % Seg Neutrophils # (1.8-7.7) K/mm3 Sodium (137-145) mmol/L Chloride (98-107) mmol/L BUN (7-17) mg/dL Creatinine (0.7-1.2) mg/dL POC Glucose 111 H 269 H (70-105)
[2018-04-27] MEDS: ANCEF/NS 1 GM/50 ML 1 GM/50 ML BAG IV SCH (22:17)
[2018-04-27] MEDS: LANTUS SUB-Q SCH (23:36)
[2018-04-28] MEDS: ZOFRAN IV PRN (05:47)
[2018-04-28] MEDS: MORPHINE IV PRN ×2 (05:48→10:36)
[2018-04-28] MEDS: HumuLIN R SUB-Q SCH ×2 (08:00→12:35)
--- NOTE | 2018-04-28 08:40 | Progress Note ---
Assessment and Plan 1. ESRD: [place] HD three times a week. 2. Volume overload: Improved. 3. Hypotension. BP is better. 4. Sepsis. MSSA bacteremia. S/p exchange of Tunnel dialysis catheter. Followed by ID. 5. Anemia: Epogen. 6. DM-2. Subjective Date of service: 04/28/18 Principal diagnosis: MSSA bactereia Interval history: Patient was seen and examined at the bedside. Objective - Vital Signs Vital signs: Vital Signs - 12hr 04/27/18 04/28/18 20:51 00:25 Temperature 98.7 F Pulse Rate 102 H 65 Respiratory 18 Rate Blood Pressure 124/48 [Right] O2 Sat by Pulse 97 Oximetry - General Appearance General appearance: well-developed, appears stated age, other (not in distress, left IJ tunnel catheter) EENT: ATNC, PERRL Neck: supple Respiratory: Present: Clear to Ascultation Cardiology: regular, S1S2, no murmurs Gastrointestinal: normoactive bowel sounds, no tenderness Integumentary: no rash, warm and dry Neurologic: no focal deficit, no asterixis, alert and oriented x3 Musculoskeletal: other (bilateral BKA) Psychiatric: cooperative - Lab 04/27/18 04:52 04/28/18 06:54 Most recent lab results Calcium 8.6 mg/dL (8.4-10.2) 04/27/18 04:52
[2018-04-28] MEDS: RENVELA PO SCH ×2 (08:59→12:59)
--- NOTE | 2018-04-28 09:02 | Progress Note ---
Assessment and Plan Assessment and plan: 53-year-old -[place] female with past medical history significant for end-stage renal disease on hemodialysis, [place], and lateral BKA presented to the emergency department with complaints of generalized pain. Patient didn't finish her 's dialysis because of pain. In the ED patient has elevated WBC count, elevated troponin which is chronic MSSA - On cefazolin -Repeat blood culture is negative - ID consult appreciated - Patient needed outpatient IV antibiotic for 4 weeks Lower back pain - Due to spinal stenosis Sepsis lieky from catheter infection - Catheter tip culture grew Staphylococcus aureus - Sensitivity pending ESRD on hemodialysis Hyperkalemia - Nephrology is following History of [place] - No specific complaints about chest pain - Patient has elevated troponin, but troponin was elevated all the time in her previous admissions Diabetes mellitus with hyperglycemia - Sliding scale insulin, Lantus daily at bedtime - ADA diet, Accu-Chek - Adjust insulin as needed Bilateral BKA DVT prophylaxis - On heparin Disposition - Continue inpatient care History Interval history: Patient was seen and evaluated this morning, patient is complaining lower back pain. Hospitalist Physical - Physical exam Narrative exam: Not in cardiopulmonary distress. The patient appeared well nourished and normally developed. Vital signs as documented. Head exam is unremarkable. No scleral icterus . Neck is without jugular venous distension, thyromegaly, or carotid bruits. Lungs are clear to auscultation. Cardiac exam reveals regular rate and Rhythm. Abdominal exam reveals normal bowel sounds. Extremities bilateral BKA. 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 - Constitutional Vitals: Temp Pulse Resp BP Pulse Ox 68.3 F L 89 18 134/64 96 04/28/18 08:06 04/28/18 08:06 04/28/18 08:06 04/28/18 08:06 04/28/18 08:06 General appearance: Present: no acute distress Results - Labs CBC & Chem 7: 04/27/18 04:52 04/28/18 06:54 Labs: Laboratory Last Values WBC 18.3 K/mm3 (4.5-11.0) H 04/27/18 04:52 RBC 2.41 M/mm3 (3.65-5.03) L 04/27/18 04:52 Hgb 7.2 gm/dl (10.1-14.3) L 04/27/18 04:52 Hct 22.5 % (30.3-42.9) L 04/27/18 04:52 MCV 93 fl (79-97) 04/27/18 04:52 MCH 30 pg (28-32) 04/27/18 04:52 MCHC 32 % (30-34) 04/27/18 04:52 RDW 18.8 % (13.2-15.2) H 04/27/18 04:52 Plt Count 237 K/mm3 (140-440) 04/27/18 04:52 Lymph % (Auto) 12.4 % (13.4-35.0) L 04/27/18 04:52 [place] % (Auto) 8.9 % (0.0-7.3) H 04/27/18 04:52 Eos % (Auto) 1.0 % (0.0-4.3) 04/27/18 04:52 Baso % (Auto) 0.6 % (0.0-1.8) 04/27/18 04:52 Lymph # 2.3 K/mm3 (1.2-5.4) 04/27/18 04:52 [place] # 1.6 K/mm3 (0.0-0.8) H 04/27/18 04:52 Eos # 0.2 K/mm3 (0.0-0.4) 04/27/18 04:52 Baso # 0.1 K/mm3 (0.0-0.1) 04/27/18 04:52 Add Manual Diff Complete 04/26/18 08:07 Total Counted 200 04/26/18 08:07 Seg Neutrophils % 77.1 % (40.0-70.0) H 04/27/18 04:52 Seg Neuts % (Manual) 83.0 % (40.0-70.0) H 04/26/18 08:07 Band Neutrophils % 0 % 04/26/18 08:07 Lymphocytes % (Manual) 7.5 % (13.4-35.0) L 04/26/18 08:07 Reactive Lymphs % (Man) 0.5 % 04/26/18 08:07 Monocytes % (Manual) 7.0 % (0.0-7.3) 04/26/18 08:07 Eosinophils % (Manual) 1.5 % (0.0-4.3) 04/26/18 08:07 Basophils % (Manual) 0 % (0.0-1.8) 04/26/18 08:07 Metamyelocytes % 0.5 % 04/26/18 08:07 Myelocytes % 0 % 04/26/18 08:07 Promyelocytes % 0 % 04/26/18 08:07 Blast Cells % 0 % 04/26/18 08:07 Nucleated RBC % Not Reportable 04/26/18 08:07 Seg Neutrophils # 14.1 K/mm3 (1.8-7.7) H 04/27/18 04:52 Seg Neutrophils # Man 17.2 K/mm3 (1.8-7.7) H 04/26/18 08:07 Band Neutrophils # 0.0 K/mm3 04/26/18 08:07 Lymphocytes # (Manual) 1.6 K/mm3 (1.2-5.4) 04/26/18 08:07 Abs React Lymphs (Man) 0.1 K/mm3 04/26/18 08:07 Monocytes # (Manual) 1.4 K/mm3 (0.0-0.8) H 04/26/18 08:07 Eosinophils # (Manual) 0.3 K/mm3 (0.0-0.4) 04/26/18 08:07 Basophils # (Manual) 0.0 K/mm3 (0.0-0.1) 04/26/18 08:07 Metamyelocytes # 0.1 K/mm3 04/26/18 08:07 Myelocytes # 0.0 K/mm3 04/26/18 08:07 Promyelocytes # 0.0 K/mm3 04/26/18 08:07 Blast Cells # 0.0 K/mm3 04/26/18 08:07 WBC Morphology Not Reportable 04/26/18 08:07 Hypersegmented Neuts Not Reportable 04/26/18 08:07 Hyposegmented Neuts Not Reportable 04/26/18 08:07 Hypogranular Neuts Not Reportable 04/26/18 08:07 Smudge Cells Not Reportable 04/26/18 08:07 Toxic Granulation Not Reportable 04/26/18 08:07 Toxic Vacuolation Not Reportable 04/26/18 08:07 Dohle Bodies Not Reportable 04/26/18 08:07 Pelger-Huet Anomaly Not Reportable 04/26/18 08:07 Riccardo Rods Not Reportable 04/26/18 08:07 Platelet Estimate Cons 04/26/18 08:07 Clumped Platelets Not Reportable 04/26/18 08:07 Plt Clumps, EDTA Not Reportable 04/26/18 08:07 Large Platelets Few 04/26/18 08:07 Giant Platelets Not Reportable 04/26/18 08:07 Platelet Satelliting Not Reportable 04/26/18 08:07 Plt Morphology Comment Not Reportable 04/26/18 08:07 RBC Morphology Not Reportable 04/26/18 08:07 Dimorphic RBCs Not Reportable 04/26/18 08:07 Polychromasia Not Reportable 04/26/18 08:07 Hypochromasia 1+ 04/26/18 08:07 Poikilocytosis Not Reportable 04/26/18 08:07 Anisocytosis 1+ 04/26/18 08:07 Microcytosis Not Reportable 04/26/18 08:07 Macrocytosis Not Reportable 04/26/18 08:07 Spherocytes Not Reportable 04/26/18 08:07 Pappenheimer Bodies Not Reportable 04/26/18 08:07 Sickle Cells Not Reportable 04/26/18 08:07 Target Cells Few 04/26/18 08:07 Tear Drop Cells Not Reportable 04/26/18 08:07 Ovalocytes Not Reportable 04/26/18 08:07 Stomatocytes 1+ 04/26/18 08:07 Helmet Cells Not Reportable 04/26/18 08:07 Nick-[place] Bodies Not Reportable 04/26/18 08:07 [place] Rings Not Reportable 04/26/18 08:07 [place] Cells Not Reportable 04/26/18 08:07 Bite Cells Not Reportable 04/26/18 08:07 Crenated Cell Not Reportable 04/26/18 08:07 Elliptocytes Not Reportable 04/26/18 08:07 Acanthocytes (Spur) Not Reportable 04/26/18 08:07 Rouleaux Not Reportable 04/26/18 08:07 Hemoglobin C Crystals Not Reportable 04/26/18 08:07 Schistocytes Not Reportable 04/26/18 08:07 Malaria parasites Not Reportable 04/26/18 08:07 Paul Bodies Not Reportable 04/26/18 08:07 Hem Pathologist Commnt No 04/26/18 08:07 Sodium 134 mmol/L (137-145) L 04/27/18 04:52 Potassium 3.9 mmol/L (3.6-5.0) 04/27/18 04:52 Chloride 91.0 mmol/L (98-107) L 04/27/18 04:52 Carbon Dioxide 25 mmol/L (22-30) 04/27/18 04:52 Anion Gap 22 mmol/L 04/27/18 04:52 BUN 33 mg/dL (7-17) H 04/27/18 04:52 Creatinine 6.4 mg/dL (0.7-1.2) H 04/27/18 04:52 Estimated GFR 8 ml/min 04/27/18 04:52 BUN/Creatinine Ratio 5 % 04/27/18 04:52 Glucose 58 mg/dL (65-100) L 04/28/18 06:54 POC Glucose 115 (70-105) H 04/28/18 08:06 Lactic Acid 1.00 mmol/L (0.7-2.0) 04/19/18 22:27 Calcium 8.6 mg/dL (8.4-10.2) 04/27/18 04:52 Troponin T 0.257 ng/mL (0.00-0.029) H* 04/19/18 12:04 C-Reactive Protein 29.90 mg/dL (0.00-1.30) H 04/25/18 23:01 NT-Pro-B Natriuret Pep > 23743 pg/mL (0-900) H 04/19/18 07:12 Triglycerides 292 mg/dL (2-149) H 04/19/18 07:12 Cholesterol 92 mg/dL (50-199) 04/19/18 07:12 LDL Cholesterol Direct 12 mg/dL (50-130) L 04/19/18 07:12 HDL Cholesterol 6 mg/dL (40-59) L 04/19/18 07:12 Cholesterol/HDL Ratio 15.33 % 04/19/18 07:12
[2018-04-28] MEDS: Renal Caps PO SCH (10:35)
[2018-04-28] MEDS: LYRICA PO SCH (10:35)
[2018-04-28] MEDS: CARAFATE PO SCH (10:35)
[2018-04-28] MEDS: MOBIC PO SCH (10:35)
[2018-04-28] MEDS: ECOTRIN PO SCH (10:35)
[2018-04-28] MEDS: LOPRESSOR PO SCH (10:35)
[2018-04-28] MEDS: PROTONIX PO SCH (10:35)
[2018-04-28] MEDS: IMDUR PO SCH (10:35)
--- NOTE | 2018-04-28 10:47 | Discharge Summary ---
Providers - Providers Date of Admission: 04/19/18 16:40 Date of discharge: 04/28/18 Attending physician: MARCELL JONES MD 04/19/18 18:09 Consult to Physician [CONS] Routine Comment: Consulting Provider: DANIELLE NEGRON Physician Instructions: Reason For Exam: esrd 04/22/18 11:33 Consult to Physician [CONS] Routine Comment: Consulting Provider: PHILIPPE MARISCAL Physician Instructions: Reason For Exam: staph bacteremia 04/27/18 19:43 Consult to Case Management [CONS] Stat Services Needed at Discharge: Other Notified:: coordinator of online programs Additional Physician Instructions: [facility] Abx: cefazolin 2 g IV on HD Friday, 2 g IV on HD Friday, 3 g IV on HD Friday total 4 weeks until 05/21/18 Diagnosis: MSSA septicemia from HD cath Labs: CBC, BMP, CRP every Friday send results to ID office [phone] MD Jayson 04/27/18 Primary care physician: [employer] Hospitalization Reason for admission: Sespis with bacteremia, ESRD on HD, spinal stenosis Condition: Stable Pertinent studies: AUDREY no evidence of endocarditis, EF of 40-45% Lumbar MRI Mild spinal stenosis L4-5 level secondary to facet arthritis ligamentum flavum laxity and diffuse disc bulge. Mild to moderate facet arthritis L5-S1 level with minimal diffuse disc bulge. There is no focal disc herniation present. Mild facet arthritis L3-4 level with minimal diffuse disc bulge. Mild facet arthritis L2-3 level. Large Schmorl's nodes seen superior endplate L2. Cervical MRI IMPRESSION: Spinal stenosis appears to be present at multiple levels, as C4 to the C6-C7 level. There appears to be significant cord compression as well as mild gliosis although visualization is limited due to significant motion artifact. No fracture or subluxation is visualized Hospital course: 53-year-old -[place] female with past medical history significant for end-stage renal disease on hemodialysis, AK, and bilateral BKA presented to the emergency department with complaints of generalized pain. Patient didn't finish her 's dialysis because of pain. In the ED patient has elevated WBC count, elevated troponin which is chronic blood culture was positive for MSSA - On cefazolin and will continue IV cefazolin during dialysis for a total of 4 weeks and will see Dr Tyler on 05/14/18 - Repeat blood culture is negative Lower back pain - Due to spinal stenosis - patient advised to have O/P neurosurgery evaluation Sepsis lieky from catheter infection - Catheter tip culture grew Staphylococcus aureus - Treatment as above - Catheter was exchanged ESRD on hemodialysis Hyperkalemia - Nephrology is following - Continue dialysis History of AK - No specific complaints about chest pain - Patient has elevated troponin, but troponin was elevated all the time in her previous admissions Diabetes mellitus with hyperglycemia - Continue home diabetic regimen Bilateral BKA patient discharged home in a stable condition, patient's questions and concerns were addressed at the bedside. Appropriate medications were given at the time of discharge. Disposition: [id number] HOME UND[facility] Time spent for discharge: 34 minutes - Discharge Diagnoses (1) Back pain Status: Chronic Qualifiers: Back pain location: thoracic back pain (2) Bacteremia Status: Acute (3) Sepsis Status: Acute Qualifiers: Sepsis type: sepsis due to unspecified organism Qualified Code(s): A41.9 - Sepsis, unspecified organism (4) Acute on chronic combined systolic and diastolic CHF (congestive heart failure) Status: Chronic Core Measure Documentation - Palliative Care Palliative Care/ Comfort Measures: Not Applicable - Core Measures Any of the following diagnoses?: history only (CHF) Exam - Physical Exam Narrative exam: Not in cardiopulmonary distress. The patient appeared well nourished and normally developed. Vital signs as documented. Head exam is unremarkable. No scleral icterus . Neck is without jugular venous distension, thyromegaly, or carotid bruits. Lungs are clear to auscultation. Cardiac exam reveals regular rate and Rhythm. Abdominal exam reveals normal bowel sounds. Extremities bilateral BKA. 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 - Constitutional Vitals: Temp Pulse Resp BP Pulse Ox 68.3 F L 89 20 134/64 96 04/28/18 08:06 04/28/18 08:06 04/28/18 10:36 04/28/18 08:06 04/28/18 08:06 Plan Activity: other (Bilateral BKA) Weight Bearing Status: Non-Weight Bearing Diet: low salt, diabetic, renal Additional Instructions: Follow up at [facility] in 1-2 weeks Follow up with: MIRANDA APONTE MD [Primary Care Provider] - 3-5 Days DANIELLE NEGRON MD [Staff Physician] - 7 Days Prescriptions: oxyCODONE /ACETAMINOPHEN [Percocet 5/325 mg] 1 tab PO Q6H PRN #20 tablet PRN Reason: Pain, Moderate (4-6)
[2018-04-28 12:29] VITALS: BP 115/49
== END 2018-04-28 14:16 | disposition home health service (06) | DRG 853 ==
LOC: ED 05:38 → 4A 16:40
PROVIDERS: ADMIT Internal Medicine; ATTEND Internal Medicine
PROC: 5A1D70Z Performance of Urinary Filtration, Intermittent, Less than 6 Hours Per Day (ICD-10-PCS; 2018-04-22)
PROC: 05PY33Z Removal of Infusion Device from Upper Vein, Percutaneous Approach (ICD-10-PCS; principal; 2018-04-23)
PROC: 03723ZZ Dilation of Innominate Artery, Percutaneous Approach (ICD-10-PCS; 2018-04-23)
PROC: 027V3ZZ Dilation of Superior Vena Cava, Percutaneous Approach (ICD-10-PCS; 2018-04-23)
PROC: 02H633Z Insertion of Infusion Device into Right Atrium, Percutaneous Approach (ICD-10-PCS; 2018-04-23)
PROC: B2141ZZ Fluoroscopy of Right Heart using Low Osmolar Contrast (ICD-10-PCS; 2018-04-23)
PROC: 5A1D70Z Performance of Urinary Filtration, Intermittent, Less than 6 Hours Per Day (ICD-10-PCS; 2018-04-24)
PROC: 5A1D70Z Performance of Urinary Filtration, Intermittent, Less than 6 Hours Per Day (ICD-10-PCS; 2018-04-25)
PROC: 5A1D70Z Performance of Urinary Filtration, Intermittent, Less than 6 Hours Per Day (ICD-10-PCS; 2018-04-27)
DX: A41.9 Sepsis, unspecified organism (principal); N18.6 End stage renal disease; I50.23 Acute on chronic systolic (congestive) heart failure; N39.0 Urinary tract infection, site not specified; I13.2 Hypertensive heart and chronic kidney disease with heart failure and with stage 5 chronic kidney disease, or end stage renal disease; T82.41XA Breakdown (mechanical) of vascular dialysis catheter, initial encounter; Z99.2 Dependence on renal dialysis; Z88.8 Allergy status to other drugs, medicaments and biological substances; E11.22 Type 2 diabetes mellitus with diabetic chronic kidney disease; E11.51 Type 2 diabetes mellitus with diabetic peripheral angiopathy without gangrene; Z89.512 Acquired absence of left leg below knee; Z89.511 Acquired absence of right leg below knee; G89.29 Other chronic pain; M54.9 Dorsalgia, unspecified; E78.5 Hyperlipidemia, unspecified; F41.9 Anxiety disorder, unspecified; Z79.4 Long term (current) use of insulin; I25.2 Old myocardial infarction; E78.00 Pure hypercholesterolemia, unspecified; Z98.51 Tubal ligation status; Z89.612 Acquired absence of left leg above knee; Z89.611 Acquired absence of right leg above knee; Z79.82 Long term (current) use of aspirin; Z79.899 Other long term (current) drug therapy; G43.909 Migraine, unspecified, not intractable, without status migrainosus; Z83.3 Family history of diabetes mellitus; Z82.49 Family history of ischemic heart disease and other diseases of the circulatory system; E11.65 Type 2 diabetes mellitus with hyperglycemia; I25.10 Atherosclerotic heart disease of native coronary artery without angina pectoris; D64.9 Anemia, unspecified; E87.5 Hyperkalemia; D69.6 Thrombocytopenia, unspecified; E11.40 Type 2 diabetes mellitus with diabetic neuropathy, unspecified; M54.2 Cervicalgia; M25.512 Pain in left shoulder; M19.079 Primary osteoarthritis, unspecified ankle and foot; Y83.8 Other surgical procedures as the cause of abnormal reaction of the patient, or of later complication, without mention of misadventure at the time of the procedure; Y92.89 Other specified places as the place of occurrence of the external cause
CPT/HCPCS: 36415; 36581; 37248; 71045; 72080; 72141; 72146; 72148; 74176; 77001; 80048; 80061; 82140; 82947; 82962; 83880; 84484; 85007; 85025; 86140; 86403; 87040; 87076; 87116; 87186; 93005; 93010; 93312; 93320; 93325; 94760; 96374; 96375; 99285; A9270-GY; C1725; C1750; C1769; C1894; J0690; J0885; J1644; J1815; J2250; J2270; J2405; J2543; J3010; J3370; J7030; J7040; J7050; Q9967

== ENCOUNTER 2018-09-30 20:54 | Emergency (ER) | payer MEDICARE ==
[2018-09-30] MEDS ORDERED: MORPHINE IV ONE (21:13)
[2018-09-30] MEDS ORDERED: ZOFRAN IV ONE (21:13)
[2018-09-30 21:14] VITALS: BP 135/74
--- NOTE | 2018-09-30 21:18 | Emergency Department Report ---
ED Abdominal Pain HPI - General Stated Complaint: ABD PAIN Time Seen by Provider: 09/30/18 21:03 - History of Present Illness Initial Comments: Patient is 53 years old female with history of end-stage renal disease on hemodialysis. Patient presented to the ER complaining of diffuse abdominal pain, crampy in nature, constant for the last few days. Patient denied any nausea, vomiting or diarrhea. Patient also denied any chest pain or shortness of breath. She stated that she had dialysis yesterday. MD Complaint: abdominal pain -: days(s) Location: diffuse Radiation: none Migration to: no migration Severity: moderate Consistency: constant Worsens With: nothing - Related Data Home Medications Medication Instructions Recorded Confirmed Last Taken ISOSORBIDE MONOnitrate [Imdur ER] 60 mg PO DAILY 07/28/17 05/19/18 09/02/17 Losartan [Cozaar] 50 mg PO QDAY 07/28/17 05/19/18 09/02/17 Insulin Detemir [Levemir Flextouch] 15 units SUB-Q QHS 08/25/17 05/19/18 09/02/17 Sevelamer Carbonate [Renvela] 2 tab PO TIDWM 08/25/17 05/19/18 09/02/17 B Complex 11/Folic/C/Biot/Zinc 1 each PO QDAY 11/15/17 05/19/18 Unknown [Dialyvite with Zinc Tablet] Meloxicam 15 mg PO QDAY 11/15/17 05/19/18 Unknown Previous Rx's Medication Instructions Recorded Last Taken Type Pregabalin [Lyrica] 75 mg PO QDAY #30 capsule 08/04/17 09/02/17 Rx Sucralfate 1 gm PO BID #60 tablet 08/04/17 09/02/17 Rx ALBUTEROL NEB's [Proventil 0.083% 2.5 mg IH Q3HRT PRN nebu 08/26/17 09/02/17 Rx NEBS] AtorvaSTATin [Lipitor] 40 mg PO QHS tablet 08/26/17 09/02/17 Rx Aspirin EC [Aspirin Enteric Coated 325 mg PO QDAY #30 tablet. 09/04/17 Unknown Rx TAB] diphenhydrAMINE [Benadryl CAP] 25 mg PO Q6H PRN #20 capsule 09/04/17 Unknown Rx Esomeprazole Magnesium [NexIUM] 20 mg PO QAM #30 capsule. 11/16/17 Unknown Rx Metoprolol [Lopressor TAB] 25 mg PO BID #60 tablet 11/16/17 Unknown Rx oxyCODONE /ACETAMINOPHEN [Percocet 1 tab PO Q6H PRN #20 tablet 04/28/18 Unknown Rx 5/325 mg] Allergies Allergy/AdvReac Type Severity Reaction Status Date / Time azithromycin [From Zithromax] Allergy Rash Verified 07/28/17 07:11 sulfamethoxazole Allergy Unknown Verified 07/28/17 04:12 [From Bactrim] trimethoprim [From Bactrim] Allergy Unknown Verified 07/28/17 04:12 ED Review of Systems ROS: Stated complaint: ABD PAIN Other details as noted in HPI Comment: All other systems reviewed and negative Constitutional: denies: chills, fever Respiratory: denies: cough, orthopnea, shortness of breath, SOB with exertion, SOB at rest, wheezing Cardiovascular: denies: chest pain, palpitations Gastrointestinal: abdominal pain. denies: nausea, vomiting, diarrhea, constipa tion, hematemesis, melena, hematochezia Musculoskeletal: denies: back pain Neurological: denies: headache, weakness, numbness, paresthesias, confusion, abnormal gait ED Past Medical Hx - Past Medical History Hx Hypertension: Yes Hx Heart Attack/AMI: Yes (x 2 2009 & 2013) Hx Congestive Heart Failure: Yes Hx Diabetes: Yes Hx Renal Disease: Yes (ESRD Tues, Th, Sat) Hx Arthritis: Yes (hands) Hx Headaches / Migraines: Yes Hx Asthma: No Hx COPD: No Hx HIV: No Additional medical history: Hypercholesterolemia, anxiety - Surgical History Hx Coronary Stent: Yes Additional Surgical History: Bilateral Tubal ligation. R. Chest permacath. Bilateral AKAs 2000. Left upper extremity fistula placement and removal secondary to infection. Left chest permacath - Social History Smoking Status: Never Smoker - Medications Home Medications: Home Medications Medication Instructions Recorded Confirmed Last Taken Type ISOSORBIDE MONOnitrate [Imdur ER] 60 mg PO DAILY 07/28/17 05/19/18 09/02/17 History Losartan [Cozaar] 50 mg PO QDAY 07/28/17 05/19/18 09/02/17 History Pregabalin [Lyrica] 75 mg PO QDAY #30 capsule 08/04/17 05/19/18 09/02/17 Rx Sucralfate 1 gm PO BID #60 tablet 08/04/17 05/19/18 09/02/17 Rx Insulin Detemir [Levemir Flextouch] 15 units SUB-Q QHS 08/25/17 05/19/18 09/02/17 History Sevelamer Carbonate [Renvela] 2 tab PO TIDWM 08/25/17 05/19/18 09/02/17 History ALBUTEROL NEB's [Proventil 0.083% 2.5 mg IH Q3HRT PRN nebu 08/26/17 04/20/18 09/02/17 Rx NEBS] AtorvaSTATin [Lipitor] 40 mg PO QHS tablet 08/26/17 05/19/18 09/02/17 Rx Aspirin EC [Aspirin Enteric Coated 325 mg PO QDAY #30 tablet. 09/04/17 05/19/18 Unknown Rx TAB] diphenhydrAMINE [Benadryl CAP] 25 mg PO Q6H PRN #20 capsule 09/04/17 05/19/18 Unknown Rx B Complex 11/Folic/C/Biot/Zinc 1 each PO QDAY 11/15/17 05/19/18 Unknown History [Dialyvite with Zinc Tablet] Meloxicam 15 mg PO QDAY 11/15/17 05/19/18 Unknown History Esomeprazole Magnesium [NexIUM] 20 mg PO QAM #30 capsule. 11/16/17 05/19/18 Unknown Rx Metoprolol [Lopressor TAB] 25 mg PO BID #60 tablet 11/16/17 05/19/18 Unknown Rx oxyCODONE /ACETAMINOPHEN [Percocet 1 tab PO Q6H PRN #20 tablet 04/28/18 05/19/18 Unknown Rx 5/325 mg] ED Physical Exam - General General appearance: alert, in no apparent distress - Head Head exam: Present: atraumatic, normocephalic, normal inspection - Eye Eye exam: Present: normal appearance - ENT ENT exam: Present: normal exam, normal orophraynx, mucous membranes moist - Neck Neck exam: Present: normal inspection, full ROM. Absent: tenderness, meningismus, lymphadenopathy, thyromegaly - Respiratory Respiratory exam: Present: normal lung sounds bilaterally - Cardiovascular Cardiovascular Exam: Present: regular rate, normal rhythm, normal heart sounds - GI/Abdominal GI/Abdominal exam: Present: soft, normal bowel sounds. Absent: distended, tenderness, guarding, rebound, rigid, organomegaly, mass, bruit, pulsatile mass, hernia - Extremities Exam Extremities exam: Present: normal inspection, full ROM, normal capillary refill. Absent: pedal edema, calf tenderness - Back Exam Back exam: Present: normal inspection, full ROM. Absent: CVA tenderness (R), CVA tenderness (L) - Neurological Exam Neurological exam: Present: alert, oriented X3, CN II-XII intact - Skin Skin exam: Present: warm, intact, normal color ED Course Vital Signs 09/30/18 21:11 Temperature 98.8 F Pulse Rate 84 Respiratory 20 Rate Blood Pressure 135/74 O2 Sat by Pulse 97 Oximetry ED Medical Decision Making - Lab Data Result diagrams: 09/30/18 21:26 09/30/18 21:26 - Radiology Data Radiology results: report reviewed Referring Physician: MERCED CHARLTON Patient Name: RIDDHI RODRIGUEZ Date of : 1965 Sex: Female Report Date: 2018-09-30 Report Status: [place] [address] Cat Scan Report Signed Patient: RIDDHI RODRIGUEZ MR#: [id number] : 1965 Acct:[id number] Age/Sex: 53 / F ADM Date: 09/30/18 Loc: ED Attending Dr: Ordering Physician: MERCED CHARLTON Date of Service: 09/30/18 Procedure(s): CT abdomen pelvis wo con Accession Number(s): [id number] cc: MERCED CHARLTON FINAL REPORT EXAM: CT ABDOMEN PELVIS WO CON HISTORY: Abdominal Pain TECHNIQUE: Standard unenhanced CT of the abdomen and pelvis. Coronal and sagittal reconstruction was also performed. PRIORS: CT a/P 04/19/2018 FINDINGS: Within the abdomen, the liver, spleen, pancreas, gallbladder, adrenal glands, and kidneys are unremarkable. Numerous calcifications are associated with the kidneys, however, these appear vascular rather than renal calculi. No evidence for retroperitoneal or pelvic lymphadenopathy is seen. Moderate stool is present throughout the entire colon. The bowel loops have normal caliber. No soft tissue mass, fluid collection, inflammatory change, or free air is seen within the abdomen or pelvis. The cecum dips deep into the right pelvis. The appendix is normal. Marked calcification of aorta and its major distributions is noted. Within the pelvis, the bladder is unremarkable. The uterus is mildly enlarged and has multiple focal amorphous calcifications suggesting underlying fibroid formation. The appearance is stable. No evidence for mass or lymphadenopathy is seen in the pelvis. Images through the upper abdomen include the lung bases which demonstrates right basilar atelectasis. Bony structures show a stable large Schmorl's node in the anterior aspect of L2 superiorly. There is a remote healed rib fracture of the posterior left 10th rib, new since the prior study. IMPRESSION: 1. Moderate stool present throughout the colon which can be associated constipation 2. Uterus is mildly enlarged containing underlying calcified fibroids 3. Right basilar atelectasis Transcribed By: [facility] Dictated By: ARA ROJAS MD Electronically Authenticated By: ARA ROJAS MD Signed Date/Time: 09/30/182252 DD/ 53 TD/TT: 09/30/182253 - Medical Decision Making Patient is 53 years old female with history of end-stage renal disease on hemodialysis. Patient presented to the ER complaining of diffuse abdominal pain, crampy in nature, constant for the last few days. Patient denied any nausea, vomiting or diarrhea. Patient also denied any chest pain or shortness of breath. She stated that she had dialysis yesterday. Patient stated that she is feeling much better. Her pain is completely resolved. CT abdomen and pelvis showed a fecal retention. No other acute finding. Patient will be discharged home to follow up with her primary care physician in the next 2-3 days. Critical care attestation.: If time is entered above; I have spent that time in minutes in the direct care of this critically ill patient, excluding procedure time. ED Disposition Clinical Impression: Abdominal pain, ESRD needing dialysis, Constipation, Pancreatitis Disposition: - TO HOME OR SELFCARE Is pt being admited?: No Condition: Stable Instructions: Pancreatitis (ED), Constipation (ED), High Fiber Diet (ED), Abdominal Pain (ED) Referrals: GISELLE THOMPSON MD [Primary Care Provider] - 3-5 Days
[2018-09-30 21:38] LABS: Basophils # (Auto) 0.1 K/mm3 (0.0-0.1); Basophils % (Auto) 1.5 % (0.0-1.8); Eosinophils # (Auto) 0.2 K/mm3 (0.0-0.4); Eosinophils % (Auto) 3.5 % (0.0-4.3); Hematocrit 37.3 % (30.3-42.9); Hemoglobin 11.9 gm/dl (10.1-14.3); Lymphocytes # (Auto) 1.3 K/mm3 (1.2-5.4); Lymphocytes % (Auto) 23.2 % (13.4-35.0); Mean Corpuscular HGB Conc 32 % (30-34); Mean Corpuscular Volume 102 fl (79-97); Monocytes # (Auto) 0.8 K/mm3 (0.0-0.8); Monocytes % (Auto) 13.8 % (0.0-7.3); Red Blood Count 3.65 M/mm3 (3.65-5.03)
[2018-09-30 22:00] LABS: Alanine Aminotransferase 7 units/L (7-56); Albumin 3.9 g/dL (3.9-5); BUN/Creatinine Ratio 4; Blood Urea Nitrogen 33 mg/dL (7-17); Calcium 9.2 mg/dL (8.4-10.2); Hemolysis Index 6
[2018-09-30 22:03] LABS: Bilirubin,Direct < 0.2 mg/dL (0-0.2)
[2018-09-30 22:13] LABS: Platelet Count 109 K/mm3 (140-440)
--- NOTE | 2018-09-30 22:53 | Cat Scan Report ---
FINAL REPORT EXAM: CT ABDOMEN PELVIS WO CON HISTORY: Abdominal Pain TECHNIQUE: Standard unenhanced CT of the abdomen and pelvis. Coronal and sagittal reconstruction was also performed. PRIORS: CT a/P 04/19/2018 FINDINGS: Within the abdomen, the liver, spleen, pancreas, gallbladder, adrenal glands, and kidneys are unremar kable. Numerous calcifications are associated with the kidneys, however, these appear vascular rather than renal calculi. No evidence for retroperitoneal or pelvic lymphadenopathy is seen. Moderate stoo l is present throughout the entire colon. The bowel loops have normal caliber. No soft tissue mass, f luid collection, inflammatory change, or free air is seen within the abdomen or pelvis. The cecum dip s deep into the right pelvis. The appendix is normal. Marked calcification of aorta and its major dis tributions is noted. Within the pelvis, the bladder is unremarkable. The uterus is mildly enlarged and has multiple focal amorphous calcifications suggesting underlying fibroid formation. The appearance is stable. No eviden ce for mass or lymphadenopathy is seen in the pelvis. Images through the upper abdomen include the lung bases which demonstrates right basilar atelectasis. Bony structures show a stable large Schmorl's node in the anterior aspect of L2 superiorly. There is a remote healed rib fracture of the posterior left 10th rib, new since the prior study. IMPRESSION: 1. Moderate stool present throughout the colon which can be associated constipation 2. Uterus is mildly enlarged containing underlying calcified fibroids 3. Right basilar atelectasis
== END 2018-10-01 00:42 | disposition home or self-care (01) ==
LOC: ED 20:54
DX: K85.90 Acute pancreatitis without necrosis or infection, unspecified (principal); K59.00 Constipation, unspecified; E11.22 Type 2 diabetes mellitus with diabetic chronic kidney disease; I13.2 Hypertensive heart and chronic kidney disease with heart failure and with stage 5 chronic kidney disease, or end stage renal disease; I50.9 Heart failure, unspecified; N18.6 End stage renal disease; Z99.2 Dependence on renal dialysis; M19.042 Primary osteoarthritis, left hand; M19.041 Primary osteoarthritis, right hand; G43.909 Migraine, unspecified, not intractable, without status migrainosus; E78.00 Pure hypercholesterolemia, unspecified; F41.9 Anxiety disorder, unspecified
CPT/HCPCS: 36415; 74176; 80048; 80076; 83690; 85025; 96374; 96375; 99285; J2270; J2405

== ENCOUNTER 2019-01-01 00:07 | Emergency (ER) | payer MEDICARE ==
[2019-01-01] MEDS ORDERED: PEPCID IV ONE (00:19)
[2019-01-01] MEDS ORDERED: ZOFRAN IV ONE (00:19)
[2019-01-01] MEDS ORDERED: BENTYL IM ONE (00:19)
[2019-01-01] MEDS ORDERED: MORPHINE IV ONE (00:19)
[2019-01-01] MEDS ORDERED: NACL 0.9% 500 ML 500 ML IV ONE (00:19)
[2019-01-01 00:22] VITALS: BP 151/79
--- NOTE | 2019-01-01 00:23 | Emergency Department Report ---
ED N/V/D HPI - General Stated complaint: ABD PAIN Time Seen by Provider: 01/01/19 00:18 - History of Present Illness Initial comments: Patient is a 53-year-old asthmatic female past medical history of diabetes hypertension congestive heart failure and ESRD who is presenting with nausea vomiting diarrhea. Patient states he felt fine this morning and did attend her hemodialysis session and states that she went to [employer] afterwards to eat and shortly thereafter she developed epigastric pain with nausea vomiting diarrhea. Patient states the pain is mostly in epigastrium and down to the umbilicus. States the cramping in nature. She denies any fever or chills, cold or congestion. Patient states the pain is 8 out of 10 in severity. Associated Symptoms: nausea/vomiting. denies: myalgias, chest pain, cough, diaphoresis, fever/chills, headaches, loss of appetite, malaise, rash, dysuria, shortness of breath, syncope, weakness - Related Data Home Medications Medication Instructions Recorded Confirmed Last Taken ISOSORBIDE MONOnitrate [Imdur ER] 60 mg PO DAILY 07/28/17 05/19/18 09/02/17 Losartan [Cozaar] 50 mg PO QDAY 07/28/17 05/19/18 09/02/17 Insulin Detemir [Levemir Flextouch] 15 units SUB-Q QHS 08/25/17 05/19/18 09/02/17 Sevelamer Carbonate [Renvela] 2 tab PO TIDWM 08/25/17 05/19/18 09/02/17 B Complex 11/Folic/C/Biot/Zinc 1 each PO QDAY 11/15/17 05/19/18 Unknown [Dialyvite with Zinc Tablet] Meloxicam 15 mg PO QDAY 11/15/17 05/19/18 Unknown Previous Rx's Medication Instructions Recorded Last Taken Type Pregabalin [Lyrica] 75 mg PO QDAY #30 capsule 08/04/17 09/02/17 Rx Sucralfate 1 gm PO BID #60 tablet 08/04/17 09/02/17 Rx ALBUTEROL NEB's [Proventil 0.083% 2.5 mg IH Q3HRT PRN nebu 08/26/17 09/02/17 Rx NEBS] AtorvaSTATin [Lipitor] 40 mg PO QHS tablet 08/26/17 09/02/17 Rx Aspirin EC [Aspirin Enteric Coated 325 mg PO QDAY #30 tablet. 09/04/17 Unknown Rx TAB] diphenhydrAMINE [Benadryl CAP] 25 mg PO Q6H PRN #20 capsule 09/04/17 Unknown Rx Esomeprazole Magnesium [NexIUM] 20 mg PO QAM #30 capsule. 11/16/17 Unknown Rx Metoprolol [Lopressor TAB] 25 mg PO BID #60 tablet 11/16/17 Unknown Rx oxyCODONE /ACETAMINOPHEN [Percocet 1 tab PO Q6H PRN #20 tablet 04/28/18 Unknown Rx 5/325 mg] Docusate Sodium [Colace] 100 mg PO BID PRN #60 capsule 09/30/18 Unknown Rx Lactulose 10 gm PO DAILY PRN #150 ml 09/30/18 Unknown Rx Ondansetron [Zofran Odt] 4 mg PO Q8HR PRN #14 tab.rapdis 09/30/18 Unknown Rx traMADol [Ultram] 50 mg PO Q6HR PRN #14 tablet 09/30/18 Unknown Rx Dicyclomine [Bentyl] 20 mg PO QID #10 tablet 01/01/19 Unknown Rx Ondansetron [Zofran Odt] 4 mg PO Q8HR #10 tab.rapdis 01/01/19 Unknown Rx Sucralfate [Carafate] 1 gm PO Q6HR 7 Days udc 01/01/19 Unknown Rx traMADol [Ultram] 50 mg PO Q6HR PRN #12 tablet 01/01/19 Unknown Rx Allergies Allergy/AdvReac Type Severity Reaction Status Date / Time azithromycin [From Zithromax] Allergy Rash Verified 07/28/17 07:11 sulfamethoxazole Allergy Unknown Verified 07/28/17 04:12 [From Bactrim] trimethoprim [From Bactrim] Allergy Unknown Verified 07/28/17 04:12 ED Review of Systems ROS: Stated complaint: ABD PAIN Other details as noted in HPI Comment: All other systems reviewed and negative ED Past Medical Hx - Past Medical History Hx Hypertension: Yes Hx Heart Attack/AMI: Yes (x 2 2009 & 2013) Hx Congestive Heart Failure: Yes Hx Diabetes: Yes Hx Renal Disease: Yes (ESRD Tues, Thurs, Sat) Hx Arthritis: Yes (hands) Hx Headaches / Migraines: Yes Hx Asthma: No Hx COPD: No Hx HIV: No Additional medical history: Hypercholesterolemia, anxiety - Surgical History Hx Coronary Stent: Yes Additional Surgical History: Bilateral Tubal ligation. R. Chest permacath. Bilateral AKAs 2000. Left upper extremity fistula placement and removal secondary to infection. Left chest permacath - Social History Smoking Status: Never Smoker - Medications Home Medications: Home Medications Medication Instructions Recorded Confirmed Last Taken Type ISOSORBIDE MONOnitrate [Imdur ER] 60 mg PO DAILY 07/28/17 05/19/18 09/02/17 History Losartan [Cozaar] 50 mg PO QDAY 07/28/17 05/19/18 09/02/17 History Pregabalin [Lyrica] 75 mg PO QDAY #30 capsule 08/04/17 05/19/18 09/02/17 Rx Sucralfate 1 gm PO BID #60 tablet 08/04/17 05/19/18 09/02/17 Rx Insulin Detemir [Levemir Flextouch] 15 units SUB-Q QHS 08/25/17 05/19/18 09/02/17 History Sevelamer Carbonate [Renvela] 2 tab PO TIDWM 08/25/17 05/19/18 09/02/17 History ALBUTEROL NEB's [Proventil 0.083% 2.5 mg IH Q3HRT PRN nebu 08/26/17 04/20/18 09/02/17 Rx NEBS] AtorvaSTATin [Lipitor] 40 mg PO QHS tablet 08/26/17 05/19/18 09/02/17 Rx Aspirin EC [Aspirin Enteric Coated 325 mg PO QDAY #30 tablet. 09/04/17 05/19/18 Unknown Rx TAB] diphenhydrAMINE [Benadryl CAP] 25 mg PO Q6H PRN #20 capsule 09/04/17 05/19/18 Unknown Rx B Complex 11/Folic/C/Biot/Zinc 1 each PO QDAY 11/15/17 05/19/18 Unknown History [Dialyvite with Zinc Tablet] Meloxicam 15 mg PO QDAY 11/15/17 05/19/18 Unknown History Esomeprazole Magnesium [NexIUM] 20 mg PO QAM #30 capsule. 11/16/17 05/19/18 Unknown Rx Metoprolol [Lopressor TAB] 25 mg PO BID #60 tablet 11/16/17 05/19/18 Unknown Rx oxyCODONE /ACETAMINOPHEN [Percocet 1 tab PO Q6H PRN #20 tablet 04/28/18 05/19/18 Unknown Rx 5/325 mg] Docusate Sodium [Colace] 100 mg PO BID PRN #60 capsule 09/30/18 Unknown Rx Lactulose 10 gm PO DAILY PRN #150 ml 09/30/18 Unknown Rx Ondansetron [Zofran Odt] 4 mg PO Q8HR PRN #14 tab.rapdis 09/30/18 Unknown Rx traMADol [Ultram] 50 mg PO Q6HR PRN #14 tablet 09/30/18 Unknown Rx Dicyclomine [Bentyl] 20 mg PO QID #10 tablet 01/01/19 Unknown Rx Ondansetron [Zofran Odt] 4 mg PO Q8HR #10 tab.rapdis 01/01/19 Unknown Rx Sucralfate [Carafate] 1 gm PO Q6HR 7 Days udc 01/01/19 Unknown Rx traMADol [Ultram] 50 mg PO Q6HR PRN #12 tablet 01/01/19 Unknown Rx ED Physical Exam - General General appearance: alert, in no apparent distress - Head Head exam: Present: atraumatic, normocephalic - Eye Eye exam: Present: normal appearance, PERRL, EOMI - ENT ENT exam: Present: mucous membranes moist - Neck Neck exam: Present: normal inspection - Respiratory Respiratory exam: Present: normal lung sounds bilaterally. Absent: respiratory distress, wheezes, rales, rhonchi - Cardiovascular Cardiovascular Exam: Present: regular rate, normal rhythm. Absent: systolic murmur, diastolic murmur, rubs, gallop - GI/Abdominal GI/Abdominal exam: Present: soft, tenderness (epigastric tenderness), normal bowel sounds. Absent: distended, guarding, rebound, rigid - Extremities Exam Extremities exam: Present: normal inspection - Back Exam Back exam: Present: normal inspection - Neurological Exam Neurological exam: Present: alert, oriented X3 - Psychiatric Psychiatric exam: Present: normal affect, normal mood - Skin Skin exam: Present: warm, dry, intact, normal color. Absent: rash ED Course Vital Signs 01/01/19 01/01/19 01/01/19 00:12 00:16 00:30 Temperature 98.7 F Pulse Rate 81 80 78 Respiratory 11 L 18 Rate Blood Pressure 151/79 151/79 O2 Sat by Pulse 100 100 Oximetry 01/01/19 01/01/19 00:46 01:00 Temperature Pulse Rate 79 79 Respiratory 13 16 Rate Blood Pressure 151/79 151/79 O2 Sat by Pulse 100 91 Oximetry ED Medical Decision Making - Lab Data Result diagrams: 01/01/19 00:32 01/01/19 00:32 - Radiology Data [facility] [address] [place] [address] Cat Scan Report Signed Patient: RIDDHI RODRIGUEZ MR#: [id number] : 1965 Acct:[id number] Age/Sex: 53 / F ADM Date: 01/01/19 Loc: ED Attending Dr: Ordering Physician: RIO PAEZ MD Date of Service: 01/01/19 Procedure(s): CT abdomen pelvis wo con Accession Number(s): [id number] cc: RIO PAEZ MD PROCEDURE: CT ABDOMEN PELVIS WO CON TECHNIQUE: Computerized axial tomography of the abdomen and pelvis was performed without intravenous contrast. This study is performed without intravascular contrast material and its sensitivity for abdominal and pelvic pathology, including neoplasms, inflammation, abscess, free fluid, thrombosis, arterial dissection and infarction, is reduced compared with a contrast enhanced study. CT DOSE LENGTH PRODUCT: mGycm HISTORY: epigastric pain with NVD' COMPARISONS: None . FINDINGS: Visualized lower thorax: There is bilateral lower lobe pulmonary edema versus infiltrate.. Liver: The liver is enlarged. There is no discrete mass.. Spleen: Normal size and attenuation. Gallbladder and biliary system: Normal. Pancreas: Normal. Adrenals: Normal. Kidneys: There is advanced bilateral renal atrophy.. GI tract: There is no bowel obstruction, colitis or enteritis. The appendix is normal. . Lymph nodes and mesentery: Normal. Vasculature: There is calcified plaque in the abdominal aorta. There is no aneurysm.. Bladder: Normal. Reproductive organs: There are calcified uterine fibroids.. Peritoneum: There is no ascites or free air, abscess or adenopathy.. Musculoskeletal structures: There is a defect in the superior endplate of L2 suggesting a Schmorl's node. This is unchanged from the prior study.. IMPRESSION: There is bilateral lower lobe pulmonary edema versus infiltrate.. The liver is enlarged. There is no discrete mass.. There is advanced bilateral renal atrophy.. There is no bowel obstruction, colitis or enteritis. The appendix is normal. . There are calcified uterine fibroids.. There is no ascites or free air, abscess or adenopathy.. . This document is electronically signed by Zaire Pool MD., January 01 2019 02:10:43 AM ET Transcribed By: CO Dictated By: ZAIRE POOL MD Electronically Authenticated By: ZAIRE POOL MD Signed Date/Time: 01/01/192 DD/ 0019 TD/TT: 01/01/19 0145 - Medical Decision Making Patient likely with some mild food poisoning. Patient's symptoms did improve after Zofran and a GI cocktail. Patient's laboratory studies are not consistent with her being septic. Patient to be discharged home. Critical care attestation.: If time is entered above; I have spent that time in minutes in the direct care of this critically ill patient, excluding procedure time. ED Disposition Clinical Impression: Food poisoning Qualifiers: Encounter type: initial encounter Injury intent: accidental or unintentional Qualified Code(s): T62.91XA - Toxic effect of unspecified noxious substance eaten as food, accidental (unintentional), initial encounter Disposition: DC-01 TO HOME OR SELFCARE Is pt being admited?: No Does the pt Need Aspirin: No Condition: Stable Instructions: Food Poisoning (ED) Referrals: WILDER MELENDEZ MD [Primary Care Provider] - 3-5 Days Time of Disposition: 04:38
[2019-01-01 01:00] LABS: Basophils % (Auto) 0.7 % (0.0-1.8); Eosinophils # (Auto) 0.2 K/mm3 (0.0-0.4); Eosinophils % (Auto) 3.2 % (0.0-4.3); Hematocrit 31.3 % (30.3-42.9); Hemoglobin 10.2 gm/dl (10.1-14.3); Lymphocytes # (Auto) 1.1 K/mm3 (1.2-5.4); Lymphocytes % (Auto) 17.9 % (13.4-35.0); Mean Corpuscular HGB Conc 32 % (30-34); Mean Corpuscular Volume 100 fl (79-97); Monocytes # (Auto) 0.7 K/mm3 (0.0-0.8); Monocytes % (Auto) 12.3 % (0.0-7.3); Red Blood Count 3.14 M/mm3 (3.65-5.03)
[2019-01-01 01:06] LABS: Platelet Count 126 K/mm3 (140-440)
[2019-01-01 01:17] LABS: Albumin 2.9 g/dL (3.9-5); Calcium 9.1 mg/dL (8.4-10.2)
--- NOTE | 2019-01-01 02:12 | Cat Scan Report ---
PROCEDURE: CT ABDOMEN PELVIS WO CON TECHNIQUE: Computerized axial tomography of the abdomen and pelvis was performed without intravenous contrast. This study is performed without intravascular contrast material and its sensitivity for ab dominal and pelvic pathology, including neoplasms, inflammation, abscess, free fluid, thrombosis, art erial dissection and infarction, is reduced compared with a contrast enhanced study. CT DOSE LENGTH PRODUCT: mGycm HISTORY: epigastric pain with NVD' COMPARISONS: None . FINDINGS: Visualized lower thorax: There is bilateral lower lobe pulmonary edema versus infiltrate.. Liver: The liver is enlarged. There is no discrete mass.. Spleen: Normal size and attenuation. Gallbladder and biliary system: Normal. Pancreas: Normal. Adrenals: Normal. Kidneys: There is advanced bilateral renal atrophy.. GI tract: There is no bowel obstruction, colitis or enteritis. The appendix is normal. . Lymph nodes and mesentery: Normal. Vasculature: There is calcified plaque in the abdominal aorta. There is no aneurysm.. Bladder: Normal. Reproductive organs: There are calcified uterine fibroids.. Peritoneum: There is no ascites or free air, abscess or adenopathy.. Musculoskeletal structures: There is a defect in the superior endplate of L2 suggesting a Schmorl's n ode. This is unchanged from the prior study.. IMPRESSION: There is bilateral lower lobe pulmonary edema versus infiltrate.. The liver is enlarged. There is no discrete mass.. There is advanced bilateral renal atrophy.. There is no bowel obstruction, colitis or enteritis. The appendix is normal. . There are calcified uterine fibroids.. There is no ascites or free air, abscess or adenopathy.. . This document is electronically signed by Zaire Patel MD., January 01 2019 02:10:43 AM ET
[2019-01-01] MEDS ORDERED: LEVSIN SL SL ONE (03:24)
[2019-01-01] MEDS ORDERED: ALUM-MAG HYDROX-SIMETH 200-200-20MG/5ML PO ONE (03:24)
[2019-01-01] MEDS ORDERED: LIDOCAINE VISCOUS 2% PO ONE (03:24)
[2019-01-01] MEDS ORDERED: BENADRYL IV ONE (03:24)
== END 2019-01-01 06:05 | disposition home or self-care (01) ==
LOC: ED 00:07
DX: T62.91XA Toxic effect of unspecified noxious substance eaten as food, accidental (unintentional), initial encounter (principal); R11.2 Nausea with vomiting, unspecified; R10.13 Epigastric pain; R19.7 Diarrhea, unspecified; M19.90 Unspecified osteoarthritis, unspecified site; G43.909 Migraine, unspecified, not intractable, without status migrainosus; E11.22 Type 2 diabetes mellitus with diabetic chronic kidney disease; I13.2 Hypertensive heart and chronic kidney disease with heart failure and with stage 5 chronic kidney disease, or end stage renal disease; N18.6 End stage renal disease; Z99.2 Dependence on renal dialysis; Z79.4 Long term (current) use of insulin; Z98.51 Tubal ligation status; Z88.1 Allergy status to other antibiotic agents; Z88.2 Allergy status to sulfonamides; Y92.89 Other specified places as the place of occurrence of the external cause
CPT/HCPCS: 36415; 74176; 80053; 83690; 85025; 96372; 96374; 96375; 99284; J0500; J1200; J2270; J2405; J7040; 96361